=== PATIENT | female | born 1960 | race Caucasian/White ===

== ENCOUNTER 2022-01-10 09:57 | Emergency (ER) | payer MEDICAID, OTHER, SELFPAY ==
--- NOTE | ~2022-01-10 | XR_ITS ---
EXAMINATION: XR CHEST CLINICAL INFORMATION: Cough. COMPARISON: None TECHNIQUE: Frontal view of the chest was obtained. FINDINGS: The lungs are well-expanded and clear. The heart size and pulmonary vascularity is normal. There is moderate spondylosis dorsal spine. No lytic process seen. XR/XR chest 1V IMPRESSION: Unremarkable chest examination.
[2022-01-10 09:59] VITALS: BP 150/85; PULSE 84; RESP 18; TEMP 36.7; O2SAT 97; BMI 40.0
--- NOTE | 2022-01-10 12:25 | ED.GENADULT ---
HPI - General Adult General Chief complaint: General Medical Stated complaint: pain in lungs/coughing Time Seen by Provider: 01/10/22 12:07 Source: patient and family Mode of arrival: ambulatory Limitations: language barrier History of Present Illness HPI narrative: 61-year-old female with history of asthma, hypertension, pneumonia bronchitis in the past who presents to the ER for evaluation of a cough for the last 2 weeks. She also reports pain in her lungs most notably in her middle back bilaterally. She recently came here from [place] 13 days ago and tested positive for COVID when she got here. She has been coughing since. Other symptoms have resolved. She tested negative for COVID at home today. She presents with her daughter who is worried about ongoing lung pain and is worried she may still be positive for COVID. She has had no fever or chills in the last week. No chest pain or difficulty breathing. Cough is worse at night. MD complaint: cough, back pain Onset (ago): week(s) (2) Location: back Radiation: non-radiation Severity: moderate Severity scale (1-10): 5 Quality: aching Pain Consistency: intermittent Relieving factors: immobilization and rest Exacerbating factors: movement and other (coughing) Associated symptoms: denies other symptoms Treatments prior to arrival: none Related Data Previous Rx's Medication Instructions Recorded benzonatate 100 mg capsule 100 mg PO TID PRN cough #30 caps 01/10/22 naproxen 500 mg tablet (Naprosyn) 500 mg PO BID PRN pain #20 tabs 01/10/22 prednisone 20 mg tablet 40 mg PO DAILY #10 tabs 01/10/22 Allergies Allergy/AdvReac Type Severity Reaction Status Date / Time Unable to Assess Allergy Unverified 01/10/22 12:33 Review of Systems Review of Systems: Constitutional: No Fever, No Chills ENT/Mouth: No sore throat, No Rhinorrhea, No Swallowing Difficulty Cardiovascular: No Chest Pain, No SOB, No Orthopnea, No Edema Respiratory: + Cough, No Sputum, No Wheezing, No dyspnea Gastrointestinal: No Nausea, No Vomiting, No Diarrhea, No abdominal Pain Musculoskeletal: No joint pain, +Myalgias Skin: No Skin Lesions, No rash Neuro: No Weakness, No Numbness, No Dizziness, No Headache Heme/Lymph: No Bruising, No Lymphadenopathy PMFSH Social History Social History Advance Directives: No Advance Directives Information Provided: Yes Physical Exam ED Vital Signs: Vital Signs - 24 hr 01/10/22 09:59 Temperature 98.1 F Pulse Rate 84 Respiratory Rate 18 Blood Pressure 150/85 H Pulse Oximetry 97 Oxygen Delivery Method Room Air BMI result Body Mass Index 40.0 Appearance: Alert. Oriented X3. No acute distress. Eyes: Pupils equal, round and reactive to light. ENT: Pharynx normal. Neck: Normal inspection. Neck supple. CVS: Normal heart rate and rhythm. Pulses normal. No chest wall tenderness Respiratory: No respiratory distress. Breath sounds normal. Middle thoracic area bilaterally with mild tenderness throughout. Skin: Skin warm and dry. Normal skin color. Normal skin turgor. No rashes. Extremities: No lower extremity edema. No calf tenderness. No redness or warmth of LE Neuro: Oriented X 3. No motor deficit. No sensory deficit. Steady gait Course Course Course Narrative: 61 yo female with history of asthma, recent COVID diagnosis 13 days ago presents with back pains and ongoing cough. On arrival to the ER she is breathing comfortably and lungs are clear throughout, no distress. She has some tenderness of her middle back most consistent with muscular pain from ongoing cough fits. Her CXR done today is clear, no PNA. Given her recent COVID dx will check DDIMER. She is not tachycardic or hypoxic. Low suspicion for PE. No clinical evidence of DVT on exam. Reevaluation(s) Reevaluation #1: DDIMER negative. Labs otherwise unremarkable. Will treat for bronchitis associated with COVID - antitussive, short course prednisone. Stable for d/c home with her daughter. Return precautions were discussed. Medical Decision Making Lab Data Result diagrams: 01/10/22 12:45 01/10/22 12:45 Labs: Lab Results 01/10/22 01/10/22 01/10/22 Range/Units 12:45 12:45 12:45 WBC 8.8 (4.8-10.8) X10*3/uL RBC 4.84 (4.20-5.50) X10*6/uL Hgb 12.4 (12.0-16.0) g/dl Hct 39.3 (37.0-47.0) % MCV 81.2 (80.0-98.0) fL MCH 25.6 L (27.0-33.0) pg MCHC 31.6 (31.0-35.0) g/dl RDW 13.6 (11.0-16.0) % Plt Count 357 (160-400) X10*3/uL MPV 9.9 (9.4-12.3) fL Immature Gran % (Auto) 0.2 (0.0-0.4) % Neut % (Auto) 41.2 L (45-73) % Lymph % (Auto) 44.7 H (20-40) % [place] % (Auto) 10.5 (2-11) % Eos % (Auto) 2.7 (0-4) % Baso % (Auto) 0.7 (0-2) % Lymph # (Auto) 3.9 (1.2-4.9) X10*3/uL [place] # (Auto) 0.9 (0.1-1.2) X10*3/uL Eos # (Auto) 0.2 (0.0-0.4) X10*3/uL Baso # (Auto) 0.1 (0.0-0.2) X10*3/uL Abs Immat Gran (auto) 0.02 (0.00-0.03) X10*3/uL Absolute Neuts (auto) 3.6 (2.0-8.3) x10*3/uL Absolute Nucleated RBC 0.000 (0.0-0.012) X10*3/uL Nucleated RBC % (auto) 0.0 (0.0-0.2) /100WBC D-Dimer High Sensitivty 170 NG/ML Sodium 140 (135-145) mmol/L Potassium 4.3 (3.3-5.1) mmol/L Chloride 105 (96-108) mmol/L Carbon Dioxide 24 (22-29) mmol/L Anion Gap 15 (12-20) BUN 9 (9-16) mg/dL Creatinine 0.64 (0.5-1.4) mg/dL Estim Creat Clear Calc 93.9 Estimated GFR > 60 Random Glucose 100 (60-115) mg/dL Calcium 9.8 (8.4-10.2) mg/dL Magnesium 2.4 (1.6-2.6) mg/dL Total Bilirubin 0.5 (0.0-1.0) mg/dL Direct Bilirubin < 0.2 (0.0-0.5) mg/dL AST 21 (5-31) U/L ALT 22 (0-31) U/L Alkaline Phosphatase 80 (39-117) U/L Total Protein 8.0 (6.5-8.0) g/dL Albumin 4.5 (3.5-5.0) g/dL Discharge Plan Discharge Clinical Impression: Cough, Acute costochondritis Patient Disposition: Home, Self-Care Instructions: Costochondritis (ED), Acute Cough (ED) Additional Instructions: Your x-ray today was negative, no evidence of pneumonia. Your blood work was reassuring against any evidence of pulmonary embolism also known as a blood clot in the lungs. Your cough and lung pain is most likely an effect from COVID. This should get better with time. Take the prescribed medications as directed. Follow-up with your doctor. If you develop new or worsening symptoms call 911 or come back to the ER for further evaluation. Prescriptions: New benzonatate 100 mg capsule 100 mg PO TID PRN (Reason: cough) Qty: 30 0RF prednisone 20 mg tablet 40 mg PO DAILY Qty: 10 0RF naproxen [Naprosyn] 500 mg tablet 500 mg PO BID PRN (Reason: pain) Qty: 20 0RF Print Language: Bhutanese
[2022-01-10 12:51] LABS: MANUAL DIFF FLAG NO
[2022-01-10 12:57] LABS: Basophils Absolute Auto 0.1 X10*3/uL (0.0-0.2); Basophils Percent Auto 0.7 % (0-2); Eosinophils Absolute Auto 0.2 X10*3/uL (0.0-0.4); Eosinophils Percent Auto 2.7 % (0-4); Hematocrit 39.3 % (37.0-47.0); Hemoglobin 12.4 g/dl (12.0-16.0); Imm Gran Abs Auto 0.02 X10*3/uL (0.00-0.03); Imm Gran Pct Auto 0.2 % (0.0-0.4); Lymphocytes Absolute Auto 3.9 X10*3/uL (1.2-4.9); Lymphocytes Percent Auto 44.7 % (20-40); Mean Corpuscular HGB Conc 31.6 g/dl (31.0-35.0); Mean Corpuscular Hemoglobin 25.6 pg (27.0-33.0); Mean Corpuscular Volume 81.2 fL (80.0-98.0); Mean Platelet Volume 9.9 fL (9.4-12.3); Monocytes Absolute Auto 0.9 X10*3/uL (0.1-1.2); Monocytes Percent Auto 10.5 % (2-11); Neutrophils Absolute Auto 3.6 x10*3/uL (2.0-8.3); Neutrophils Percent Auto 41.2 % (45-73); Platelet Count 357 X10*3/uL (160-400); Red Blood Count 4.84 X10*6/uL (4.20-5.50); Red Cell Distribution Width 13.6 % (11.0-16.0); White Blood Count 8.8 X10*3/uL (4.8-10.8)
[2022-01-10] MEDS: Benzonatate 100 MG CAPSULE 200 MG PO (12:58)
[2022-01-10] MEDS: lisinopriL 10 MG TABLET PO (12:58)
[2022-01-10 13:04] LABS: D Dimer High Sensitivity 170 NG/ML
[2022-01-10 13:10] LABS: Alanine Aminotransferase 22 U/L (0-31); Albumin Level 4.5 g/dL (3.5-5.0); Alkaline Phosphatase 80 U/L (39-117); Anion Gap 15 (12-20); Aspartate Amino Transferase 21 U/L (5-31); Bilirubin Direct < 0.2 mg/dL (0.0-0.5); Bilirubin Total 0.5 mg/dL (0.0-1.0); Blood Urea Nitrogen 9 mg/dL (9-16); Calcium 9.8 mg/dL (8.4-10.2); Carbon Dioxide 24 mmol/L (22-29); Chloride 105 mmol/L (96-108); Creatinine Clr Calc Pharmacy 93.9; Estimated Glomerular Filt Rate > 60; Glucose Random 100 mg/dL (60-115); Magnesium 2.4 mg/dL (1.6-2.6); Potassium 4.3 mmol/L (3.3-5.1); Sodium 140 mmol/L (135-145)
== END 2022-01-10 13:44 | disposition home or self-care (01) ==
PROVIDERS: Physician Assistant; Emergency Provider Emergency Medicine
DX: R05.9 Cough, unspecified (principal); M94.0 Chondrocostal junction syndrome [Tietze]; Z79.899 Other long term (current) drug therapy
CPT/HCPCS: 36415; 71045; 80048; 80076; 83735; 85025; 85379; 99282; 99283

== ENCOUNTER 2022-06-01 10:36 | Emergency (ER) | payer MEDICAID, OTHER, SELFPAY ==
--- NOTE | ~2022-06-01 | XR_ITS ---
EXAMINATION: 1. RADIOGRAPHS RIGHT RIBS 2. RADIOGRAPHS LUMBAR SPINE 3. RADIOGRAPHS RIGHT FIRST TOE CLINICAL INFORMATION: Pain COMPARISON: None TECHNIQUE: 3 views of the right RIBS, 3 views of the lumbar spine and 3 views of the right first toe were obtained. FINDINGS: Right RIBS: No right-sided rib fracture. Cardiac silhouette is normal in size. The lungs are well aerated. There is no lobar consolidation. Blunting of the left costophrenic angle likely represents scarring, however, tiny amount of pleural fluid is also within the differential. There is no pneumothorax. Lumbar spine: 5 nonrib-bearing lumbar vertebral bodies are visualized. Lumbar vertebral body heights are maintained. Moderate narrowing of the L5/S1 disc space height. There are degenerative changes of the posterior elements of the lower lumbar spine. Sacroiliac joints are symmetric. Small left pelvic calcification is likely vascular in nature. Right first toe: No fracture or dislocation. There are mild degenerative changes of the first MTP joint. The first IP joint is unremarkable. No focal soft tissue swelling of the first toe. No radiopaque foreign body. XR/XR lumbar spine 2-3V IMPRESSION: 1. No right-sided rib fracture. 2. Mild degenerative changes of the lower lumbar spine without compression deformity. 3. Mild degenerative changes of the right first toe without fracture.
--- NOTE | ~2022-06-01 | XR_ITS ---
EXAMINATION: 1. RADIOGRAPHS RIGHT RIBS 2. RADIOGRAPHS LUMBAR SPINE 3. RADIOGRAPHS RIGHT FIRST TOE CLINICAL INFORMATION: Pain COMPARISON: None TECHNIQUE: 3 views of the right RIBS, 3 views of the lumbar spine and 3 views of the right first toe were obtained. FINDINGS: Right RIBS: No right-sided rib fracture. Cardiac silhouette is normal in size. The lungs are well aerated. There is no lobar consolidation. Blunting of the left costophrenic angle likely represents scarring, however, tiny amount of pleural fluid is also within the differential. There is no pneumothorax. Lumbar spine: 5 nonrib-bearing lumbar vertebral bodies are visualized. Lumbar vertebral body heights are maintained. Moderate narrowing of the L5/S1 disc space height. There are degenerative changes of the posterior elements of the lower lumbar spine. Sacroiliac joints are symmetric. Small left pelvic calcification is likely vascular in nature. Right first toe: No fracture or dislocation. There are mild degenerative changes of the first MTP joint. The first IP joint is unremarkable. No focal soft tissue swelling of the first toe. No radiopaque foreign body. XR/XR ribs RT min 3V w CXR1V IMPRESSION: 1. No right-sided rib fracture. 2. Mild degenerative changes of the lower lumbar spine without compression deformity. 3. Mild degenerative changes of the right first toe without fracture.
--- NOTE | ~2022-06-01 | XR_ITS ---
EXAMINATION: 1. RADIOGRAPHS RIGHT RIBS 2. RADIOGRAPHS LUMBAR SPINE 3. RADIOGRAPHS RIGHT FIRST TOE CLINICAL INFORMATION: Pain COMPARISON: None TECHNIQUE: 3 views of the right RIBS, 3 views of the lumbar spine and 3 views of the right first toe were obtained. FINDINGS: Right RIBS: No right-sided rib fracture. Cardiac silhouette is normal in size. The lungs are well aerated. There is no lobar consolidation. Blunting of the left costophrenic angle likely represents scarring, however, tiny amount of pleural fluid is also within the differential. There is no pneumothorax. Lumbar spine: 5 nonrib-bearing lumbar vertebral bodies are visualized. Lumbar vertebral body heights are maintained. Moderate narrowing of the L5/S1 disc space height. There are degenerative changes of the posterior elements of the lower lumbar spine. Sacroiliac joints are symmetric. Small left pelvic calcification is likely vascular in nature. Right first toe: No fracture or dislocation. There are mild degenerative changes of the first MTP joint. The first IP joint is unremarkable. No focal soft tissue swelling of the first toe. No radiopaque foreign body. XR/XR toe RT min 2V IMPRESSION: 1. No right-sided rib fracture. 2. Mild degenerative changes of the lower lumbar spine without compression deformity. 3. Mild degenerative changes of the right first toe without fracture.
--- NOTE | ~2022-06-01 | CT_ITS ---
EXAM: Noncontrast CT scan of the head and cervical spine. INDICATION: Fall. Headache. COMPARISON: None TECHNIQUE: Axial slices were obtained from skull base to vertex and displayed. This was followed by helical, multislice, multidetector axial images from the occiput to the upper thorax. Coronal and sagittal reformats of the cervical spine in addition to coronal reformats of the head were obtained at the technologist workstation. DLP: 366 mGy-cm FINDINGS: HEAD: There is no evidence of acute intracranial hemorrhage or territorial infarction. No abnormal mass effect or midline shift is appreciated. Cox-white differentiation is well preserved. No extra-axial fluid collections. The ventricular system and cortical sulci are normal in size. There are subtle areas of low density in the periventricular and subcortical white matter, most consistent with sequelae of microvascular ischemic change. Hyperostosis frontalis. No fracture. There are mild calcifications of the cavernous internal carotid arteries. The visualized paranasal sinuses and mastoid air cells are well aerated. SPINE: The cervical spine is visualized in its entirety. Alignment is within normal limits. Normal C1/C2 articulation. Cervical vertebral body heights are maintained. Cervical disc spaces are relatively well-maintained diffusely. A few tiny osteophytes are scattered throughout the spine. Mild diffuse facet hypertrophy bilaterally. Visualized lung apices are well aerated. CT/CT cervical spine wo IV con IMPRESSION: 1. No acute intracranial pathology. 2. No fractures or dislocations of the cervical spine. This CT examination was performed using dose optimization techniques as appropriate, variously including the following: *Automated exposure control *Adjustment of mA and/or kV according to patient size (this includes techniques or standardized protocols for targeted exams where dose is matched to indication/reason for exam; i.e. extremities or head) *Use of iterative reconstruction technique
[2022-06-01 11:15] VITALS: BP 171/76; PULSE 93; RESP 20; TEMP 36.6; O2SAT 97; BMI 33.3
--- NOTE | 2022-06-01 11:20 | ED.GENADULT ---
HPI - General Adult General Chief complaint: Fall <Shane Castillo - Last Filed: 06/01/22 11:21> Stated complaint: fall swollen finger, pain in R leg <Shane Castillo - Last Filed: 06/01/22 11:21> Time Seen by Provider: 06/01/22 12:48 <Shane Castillo - Last Filed: 06/01/22 11:21> Source: patient, RN notes reviewed and intelligence clerk <CHERISE Lee - Last Filed: 06/01/22 16:15> Mode of arrival: ambulatory <CHERISE Lee Last Filed: 06/01/22 16:15> Limitations: no limitations <CHERISE Lee Last Filed: 06/01/22 16:15> History of Present Illness HPI narrative: This is a [id number]-female, with a past medical history of asthma and hypertension, who presents to the emergency department today with complaints of right great toe pain, right-sided back pain, headache status post mechanical fall which occurred earlier today. Patient reports that she accidentally slipped and fell down 10 wooden steps in her home, and landed on her buttocks. She is unsure if she hit her head as it happened too fast . She states that she did not lose consciousness. She is not on anticoagulants. She has been ambulatory since the fall. She denies any weakness, numbness, tingling, chest pain, shortness of breath, dizziness, blurred vision, nausea, vomiting or diarrhea. <CHERISE Lee - Last Filed: 06/01/22 16:15> MD complaint: Fall <CHERISE Lee Last Filed: 06/01/22 16:15> Onset (ago): hour(s) <CHERISE Lee Last Filed: 06/01/22 16:15> Location: head and back <CHERISE Lee Last Filed: 06/01/22 16:15> Radiation: back <CHERISE Lee Last Filed: 06/01/22 16:15> Severity: moderate <CHERISE Lee Last Filed: 06/01/22 16:15> Quality: aching <CHERISE Lee Last Filed: 06/01/22 16:15> Pain Consistency: constant <CHERISE Lee - Last Filed: 06/01/22 16:15> Relieving factors: immobilization <CHERISE Lee Last Filed: 06/01/22 16:15> Exacerbating factors: movement <CHERISE Lee Last Filed: 06/01/22 16:15> Associated symptoms: denies other symptoms <CHERISE Lee - Last Filed: 06/01/22 16:15> Related Data Home medications: Previous Rx's Medication Instructions Recorded benzonatate 100 mg capsule 100 mg PO TID PRN cough #30 caps 01/10/22 lisinopril 10 mg tablet 10 mg PO DAILY #30 tabs 01/10/22 naproxen 500 mg tablet (Naprosyn) 500 mg PO BID PRN pain #20 tabs 01/10/22 prednisone 20 mg tablet 40 mg PO DAILY #10 tabs 01/10/22 <Shane Castillo - Last Filed: 06/01/22 11:21> Allergies/adverse reactions: Allergies Allergy/AdvReac Type Severity Reaction Status Date / Time No Known Allergies Allergy Verified 06/01/22 11:20 <Shane Castillo - Last Filed: 06/01/22 11:21> Review of Systems Review of Systems: Yes all other systems are reviewed and are negative <CHERISE Lee - Last Filed: 06/01/22 16:15> [facility] Social History Social History: Social History Advance Directives: No Advance Directives Information Provided: Yes <Shane Castillo - Last Filed: 06/01/22 11:21> Physical Exam ED Vital Signs: Vital Signs - 24 hr 06/01/22 11:15 06/01/22 15:22 Temperature 97.9 F Pulse Rate 93 83 Respiratory Rate 20 16 Blood Pressure 171/76 H 152/85 H Pulse Oximetry 97 95 Oxygen Delivery Method Room Air Room Air BMI result Body Mass Index 33.3 <Shane Castillo - Last Filed: 06/01/22 11:21> Vital Signs - 24 hr 06/01/22 11:15 06/01/22 15:22 Temperature 97.9 F Pulse Rate 93 83 Respiratory Rate 20 16 Blood Pressure 171/76 H 152/85 H Pulse Oximetry 97 95 Oxygen Delivery Method Room Air Room Air BMI result Body Mass Index 33.3 <CHERISE Lee - Last Filed: 06/01/22 16:15> Appearance: Alert. Oriented X3. No acute distress. HEENT: Head is normocephalic, atraumatic, normal inspection to the head without any open wounds, edema, or abrasions. EOMI, PERRL. CVS: Normal heart rate and rhythm. Pulses normal. Respiratory: No respiratory distress. Skin: Skin warm and dry. Normal skin color. Normal skin turgor. No rashes. Extremities: Normal inspection to the entire back without any gross deformities, swelling, overlying ecchymosis, lacerations or abrasions. Right ribs are nontender to palpation. No cervical, thoracic or lumbar midline spine tenderness. Mild tenderness to palpation over the right SI joint. Neuro: Oriented X 3. No motor deficit. No sensory deficit. <CHERISE Lee - Last Filed: 06/01/22 16:15> Course Course Course Narrative: RME- 61-year-old primarily [place]er-speaking female presents for evaluation after a fall. Patient reports that she slipped down the stairs and injured her right big toe, right flank and lower back. She does not remember hitting her head. On exam her head is normocephalic and atraumatic. She is not on blood thinners and she denies any headache. Will defer CT imaging of the head but will obtain radiographs of the right great toe, right ribs and lumbar spine <Shane Castillo - Last Filed: 06/01/22 11:21> Reevaluation(s) Reevaluation #1: Patient was re-evaluated. She is reporting a headache and reports that she is unsure if she had hit her head, due to her age and headache, will obtain head and cervical spine CT. Patient remains stable and comfortable, exam remains nonfocal. <CHERISE Lee - Last Filed: 06/01/22 16:15> Time: 14:54 <CHERISE Lee - Last Filed: 06/01/22 16:15> Reevaluation #2: CT head and CT cervical spine unremarkable. Patient is stable to be discharged home. <CHERISE Lee - Last Filed: 06/01/22 16:15> Time: 16:05 <CHERISE Lee - Last Filed: 06/01/22 16:15> Medications Administered Discontinued Medications Generic Name Dose Route Start Last Admin Trade Name Freq PRN Reason Stop Dose Admin Atenolol 25 mg 06/01/22 15:08 06/01/22 15:16 Atenolol 25 Mg Tablet PO 06/01/22 15:09 25 mg ONCE ONE Administration Protocol <Shane Castilol - Last Filed: 06/01/22 11:21> Medications Administered Discontinued Medications Generic Name Dose Route Start Last Admin Trade Name Freq PRN Reason Stop Dose Admin Atenolol 25 mg 06/01/22 15:08 06/01/22 15:16 Atenolol 25 Mg Tablet PO 06/01/22 15:09 25 mg ONCE ONE Administration Protocol <CHERISE Lee - Last Filed: 06/01/22 16:15> Medical Decision Making Medical Decision Making MDM Narrative: 42-[id number]-edx-female presenting today with complaints or right great toe pain, right sided back pain and headache status post mechanical fall which occurred today. No acute fractures seen on foot, lumbar spine and rib x-ray series. Unremarkable head and cervical spine CT. <CHERISE Lee - Last Filed: 06/01/22 16:15> Differential Diagnosis Differential Diagnoses: The differential diagnosis associated with the presentation includes <CHERISE Lee - Last Filed: 06/01/22 16:15> right great toe fracture, sprain, strain, contusion, rib fracture, rib contusion, closed head injury, concussion, ICH <CHERISE Lee - Last Filed: 06/01/22 16:15> Independent Interpretation I performed an independent interpretation of an: Plain X-Ray and CT Scan <CHERISE Lee - Last Filed: 06/01/22 16:15> Interpretation: Review of right toe, ribs, and lumbar spine reviewed by me with no acute findings of fracture. CT head/cervical spine review with no acute findings or evidence of ICH <CHERISE Lee - Last Filed: 06/01/22 16:15> Radiology Impression Discussion of test interpretation with radiology: I have reviewed the radiologist's reading. <CHERISE Lee - Last Filed: 06/01/22 16:15> Radiologist Impression: TECHNIQUE: 3 views of the right RIBS, 3 views of the lumbar spine and 3 views of the right first toe were obtained.? FINDINGS: Right RIBS: No right-sided rib fracture. Cardiac silhouette is normal in size. The lungs are well aerated. There is no lobar consolidation. Blunting of the left costophrenic angle likely represents scarring, however, tiny amount of pleural fluid is also within the differential. There is no pneumothorax. Lumbar spine: 5 nonrib-bearing lumbar vertebral bodies are visualized. Lumbar vertebral body heights are maintained. Moderate narrowing of the L5/S1 disc space height. There are degenerative changes of the posterior elements of the lower lumbar spine. Sacroiliac joints are symmetric. Small left pelvic calcification is likely vascular in nature. Right first toe: No fracture or dislocation. There are mild degenerative changes of the first MTP joint. The first IP joint is unremarkable. No focal soft tissue swelling of the first toe. No radiopaque foreign body. XR/XR toe RT min 2V IMPRESSION: 1.? No right-sided rib fracture. 2.? Mild degenerative changes of the lower lumbar spine without compression deformity. 3.? Mild degenerative changes of the right first toe without fracture. HEAD: There is no evidence of acute intracranial hemorrhage or territorial infarction.? No abnormal mass effect or midline shift is appreciated. Cox-white differentiation is well preserved.? No extra-axial fluid collections. The ventricular system and cortical sulci are normal in size. There are subtle areas of low density in the periventricular and subcortical white matter, most consistent with sequelae of microvascular ischemic change.? Hyperostosis frontalis. No fracture. There are mild calcifications of the cavernous internal carotid arteries.? The visualized paranasal sinuses and mastoid air cells are well aerated. SPINE: The cervical spine is visualized in its entirety. Alignment is within normal limits. Normal C1/C2 articulation. Cervical vertebral body heights are maintained. Cervical disc spaces are relatively well-maintained diffusely. A few tiny osteophytes are scattered throughout the spine. Mild diffuse facet hypertrophy bilaterally. Visualized lung apices are well aerated. CT/CT head/brain wo IV con IMPRESSION: 1. No acute intracranial pathology. 2. No fractures or dislocations of the cervical spine. ? <CHERISE Lee - Last Filed: 06/01/22 16:15> Prescription Management I considered prescription management with: Pain Medication <CHEIRSE Lee - Last Filed: 06/01/22 16:15> Chronic Conditions Patient?s care impacted by: Diabetes <CHERISE Lee - Last Filed: 06/01/22 16:15> Discharge Plan Discharge Clinical Impression: Contusion of great toe of right foot, Closed head injury, Lumbar contusion <Shane Castillo - Last Filed: 06/01/22 11:21> Patient Disposition: Home, Self-Care <Shane Castillo - Last Filed: 06/01/22 11:21> Instructions: Acute Low Back Pain (ED), Contusion in Adults (ED) <Shane Castillo - Last Filed: 06/01/22 11:21> Additional Instructions: Your Toe X-ray, Rib X-ray, and Lumbar Spine x-ray showed no fractures. Your Head CT and neck CT were normal today. Please rest and apply ice/heat for pain relief. You may take ibuprofen/tylenol as needed for symptomatic relief. Follow up with your primary care physician regarding this visit. If you develop new or worsening symptoms call 911 or come back to the ER for further evaluation. La radiograf?a del dedo del pie, la radiograf?a de la edward y la radiograf?a de la columna lumbar no mostraron fracturas. Owens tomograf?a computarizada de la kushal y la tomograf?a computarizada del estefania fueron normales hoy. Descanse y aplique hielo/calor para aliviar el dolor. Puede bull ibuprofeno/tylenol seg?n sea necesario para el alivio sintom?bradley. Frederick un seguimiento con owens m?dico de atenci?n primaria con respecto a esta visita. Si desarrolla s?ntomas nuevos o que empeoran, llame al 911 o regrese a la miller de emergencias para yael evaluaci?n adicional. <Shane Castillo - Last Filed: 06/01/22 11:21> Prescriptions: No Action benzonatate 100 mg capsule 100 mg PO TID PRN (Reason: cough) Qty: 30 0RF prednisone 20 mg tablet 40 mg PO DAILY Qty: 10 0RF naproxen [Naprosyn] 500 mg tablet 500 mg PO BID PRN (Reason: pain) Qty: 20 0RF lisinopril 10 mg tablet 10 mg PO DAILY Qty: 30 0RF <Shane Castillo - Last Filed: 06/01/22 11:21>
[2022-06-01] MEDS: atenoloL 25 MG TABLET PO (15:16)
[2022-06-01 15:22] VITALS: BP 152/85; PULSE 83; RESP 16; O2SAT 95
== END 2022-06-01 16:32 | disposition home or self-care (01) ==
PROVIDERS: Emergency Provider Student in an Organized Health Care Education/Training Program
DX: S09.90XA Unspecified injury of head, initial encounter (principal); S90.111A Contusion of right great toe without damage to nail, initial encounter; S30.0XXA Contusion of lower back and pelvis, initial encounter; M79.671 Pain in right foot; R51.9 Headache, unspecified; M54.2 Cervicalgia; R07.81 Pleurodynia; W10.9XXA Fall (on) (from) unspecified stairs and steps, initial encounter; Y93.9 Activity, unspecified; Y92.9 Unspecified place or not applicable; Y99.9 Unspecified external cause status; Z79.899 Other long term (current) drug therapy
CPT/HCPCS: 70450; 71101; 72100; 72125; 73660; 99283; 99284

== ENCOUNTER 2022-07-07 05:45 | Emergency (ER) | payer MEDICAID, OTHER, SELFPAY ==
[2022-07-07 05:55] VITALS: BP 142/76; BP 160/90; PULSE 72; RESP 14; TEMP 36.8; O2SAT 96; BMI 33.2
--- NOTE | 2022-07-07 07:07 | ED.EPISTAXIS ---
History of Present Illness General Chief Complaint: Epistaxis Stated Complaint: Nosebleed Time Seen by Provider: 07/07/22 07:06 Source: patient Mode of arrival: EMS Limitations: no limitations History of Present Illness HPI Narrative: Patient with history of nasal allergies , feel very congested started having nasal bleed while she was asleep from both sites which has stopped by the time she came to the ER. Patient does not take any blood thinner and no aspirin vitals are stable patient had labs done within last 6 months were normal no bruising no abdominal pain no melena no dizziness no skin rash patient complained of dysuria and strong order for last few days no fever no chills no flank Related Data Previous Rx's Medication Instructions Recorded benzonatate 100 mg capsule 100 mg PO TID PRN cough #30 caps 01/10/22 lisinopril 10 mg tablet 10 mg PO DAILY #30 tabs 01/10/22 naproxen 500 mg tablet (Naprosyn) 500 mg PO BID PRN pain #20 tabs 01/10/22 prednisone 20 mg tablet 40 mg PO DAILY #10 tabs 01/10/22 fluticasone propionate 50 2 spray intranasal DAILY #16 grams 07/07/22 mcg/actuation nasal spray,suspension (Flonase Allergy Relief) Allergies Allergy/AdvReac Type Severity Reaction Status Date / Time No Known Allergies Allergy Verified 06/01/22 11:20 Review of Systems Review of Systems: Yes all other systems are reviewed and are negative [facility] Social History Social History Alcohol intake: never Smoked in Last 30 Days: No 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 Oriented X3. No acute distress. Eyes: No pallor or icterus HEENT: Pharynx normal. Oral Mucosa moist nasal turbinates inflamed no active bleeding no blood clots no polyp seen Neck: Normal inspection. Neck supple. CVS: Normal heart rate and rhythm. Pulses normal. Respiratory: No respiratory distress. Equal air entry bilateral, no wheezing/rales/rhonchi Abdomen: Soft and nontender. Bowel sounds are present, no mass palpable, Skin: Skin warm and dry. Normal skin color. Normal skin turgor. Extremities: No lower extremity edema. No calf tenderness Neuro: Oriented X 3. Medical Decision Making Medical Decision Making [facility] Narrative: Patient with allergic rhinitis with minor nasal bleed not on anticoagulants labs are stable blood pressure stable previous labs are normal Lab Data [facility] Lab Attestation statement: I reviewed the patient's lab results. Labs: Lab Results 07/07/22 Range/Units 08:00 Urine Color Yellow Urine Appearance Cloudy Urine pH 7.0 (5.0-9.0) Ur Specific Greer 1.015 (1.005-1.025) Urine Protein Negative (Neg-Trace) mg/dL Urine Glucose (UA) Negative (Negative) mg/dL Urine Ketones Negative (Negative) mg/dL Urine Blood Trace H (Negative) Urine Nitrite Positive H (Negative) Ur Leukocyte Esterase Large (3+) H (Negative) Urine RBC 0-2 (0-2) /HPF Urine WBC 21-50 H (0-5) /HPF Ur Squamous Epith Cells 3-5 (0-2) /HPF Urine Bacteria 4+ (None Seen) Hyaline Casts 0-2 (0-2) /LPF Discharge Plan Discharge Clinical Impression: Epistaxis Patient Disposition: Home, Self-Care Instructions: Nosebleed (ED) Additional Instructions: Local care as advised Nasal spray for allergies Follow with PCP Atenci?n local seg?n lo recomendado Aerosol nasal para alergias Seguir con PCP Prescriptions: New fluticasone propionate [Flonase Allergy Relief] 50 mcg/actuation spray,suspension 2 spray intranasal DAILY Qty: 16 0RF Rx Instructions: administer into each nostril No Action benzonatate 100 mg capsule 100 mg PO TID PRN (Reason: cough) Qty: 30 0RF prednisone 20 mg tablet 40 mg PO DAILY Qty: 10 0RF naproxen [Naprosyn] 500 mg tablet 500 mg PO BID PRN (Reason: pain) Qty: 20 0RF lisinopril 10 mg tablet 10 mg PO DAILY Qty: 30 0RF Print Language: [place]an
[2022-07-07 07:11] VITALS: BP 133/68; PULSE 70; O2SAT 97
--- NOTE | 2022-07-07 07:59 | PC.NURSE ---
pt asking to have urine and blood work done d/t my urine smelling bad . provider aware, ua spec ordered.
[2022-07-07 08:08] LABS: Appearance Urine Cloudy; Color Urine Yellow; Glucose Urine UA Negative (Negative); Leukocyte Esterase Urine Large (3+) (Negative); Nitrite Urine Positive (Negative); Specific Gravity - Urine 1.015 (1.005-1.025); UMIC TRIGGER UACC YES; Urine Blood Trace (Negative); Urine Ketones Negative (Negative); Urine Protein Negative (Neg-Trace)
[2022-07-07 08:11] LABS: Bacteria Urine 4+ (None Seen); Hyaline Casts Urine 0-2 /LPF (0-2); RBC Urine 0-2 /HPF (0-2); UACC Culture Trigger YES; WBC Urine 21-50 /HPF (0-5)
== END 2022-07-07 08:35 | disposition home or self-care (01) ==
PROVIDERS: Emergency Provider Internal Medicine
DX: R04.0 Epistaxis (principal); Z79.899 Other long term (current) drug therapy
CPT/HCPCS: 81001; 87086; 99283; 99284

== ENCOUNTER 2022-07-24 07:25 | Emergency (ER) | payer MEDICAID, OTHER, SELFPAY ==
--- NOTE | 2022-07-24 07:35 | ED.URI ---
HPI - URI/Sore Throat General Chief Complaint: Upper Respiratory Symptoms Stated Complaint: sore throat and back pain Time Seen by Provider: 07/24/22 07:30 Source: patient Mode of arrival: ambulatory Limitations: no limitations History of Present Illness HPI Narrative: 61 y/o female presents to the ER for evaluation of sore throat and back pain for the last couple of days. She presents with her 2 children in their 20s who have similar symptoms. She also reports she has a headache, body aches with muscle pain. She has some nasal congestion and post nasal drip at night with a dry cough. No fevers. No chest pain or trouble breathing. She is able to eat and drink normally but has some pain with swallowing. MD elicited complaint: sore throat and other (back pain) Onset (ago): day(s) Consistency: progressively worsening Severity: moderate Description of mucous: clear Able to tolerate fluids by mouth: Yes Exacerbating factors: swallowing Relieving factors: nothing Context: sick contacts Associated symptoms: myalgias, headache, nasal congestion, sore throat and cough Treatments prior to arrival: none Related Data Previous Rx's Medication Instructions Recorded benzonatate 100 mg capsule 100 mg PO TID PRN cough #30 caps 01/10/22 lisinopril 10 mg tablet 10 mg PO DAILY #30 tabs 01/10/22 naproxen 500 mg tablet (Naprosyn) 500 mg PO BID PRN pain #20 tabs 01/10/22 prednisone 20 mg tablet 40 mg PO DAILY #10 tabs 01/10/22 cefuroxime axetil 250 mg tablet 250 mg PO BID 7 days #14 tabs 07/07/22 fluticasone propionate 50 2 spray intranasal DAILY #16 grams 07/07/22 mcg/actuation nasal spray,suspension (Flonase Allergy Relief) Allergies Allergy/AdvReac Type Severity Reaction Status Date / Time No Known Allergies Allergy Verified 06/01/22 11:20 Review of Systems Review of Systems: Yes all other systems are reviewed and are negative [facility] Social History Social History Alcohol intake: never 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 Oriented X3. No acute distress. Head: normocephalic, atraumatic. Eyes: Pupils equal, round and reactive to light. ENT: Pharynx normal. No tonsillar swelling or exudate but the entire posterior oropharynx is erythematous Neck: Normal inspection. Neck supple. CVS: Normal heart rate and rhythm. Pulses normal. Respiratory: No respiratory distress. Breath sounds normal. Abdomen: Soft and nontender. +BS x4 Skin: Skin warm and dry. Normal skin color. Normal skin turgor. No rashes. Extremities: No lower extremity edema. No joint swelling. Neuro/psych: Oriented X 3. Grossly normal. CN II-XII intact. Normal speech and cognition. Medical Decision Making Medical Decision Making [facility] Narrative: 61 yo female presenting with sore throat, body aches, headache, nasal congestion and dry cough. VSS on arrival. Patient is negative for strep throat and COVID. Her had similar symptoms last week. Clinical presentation most consistent with viral infection, no need for abx at this time. Discussed results, dx and management as well as return precautions. Stable for d/c home. Differential Diagnosis Differential Diagnoses: The differential diagnosis associated with the presentation includes strep, covid, flu, rsv, other viral syndrome, bronchitis, pneumonia, no evidence of peritonsillar abcsess or retropharyngeal abscess Lab Data [facility] Lab Attestation statement: I reviewed the patient's lab results. Labs: Lab Results 07/24/22 07/24/22 Range/Units 07:52 07:52 COVID-19 (OLGA) Negative (Negative) COVID-19 Clin Com See Note S. pyogenes GrpA MAHSA Negative (Negative) Independent Historian Clinical information obtained from an independent historian. History obtained from or confirmed by: Spouse External Record Review External record reviewed: Outpatient record and Prior outpatient labs Prescription Management I considered prescription management with: Antibiotic Critical Care Time Critical Care Time Critical Care Time: No Discharge Plan Discharge Clinical Impression: Viral infection Patient Disposition: Home, Self-Care Instructions: Viral Syndrome (ED) Additional Instructions: You tested negative for COVID-19 and Strep throat. Your symptoms are most likely due to another viral illness. Treatment is rest and supportive care. Drink plenty of fluids. Take over the counter cold and flu medications as needed for your symptoms. Use warm salt water gargles 3 times per day to help your sore throat. Recommend over the counter Chloraseptic spray and Cepacol lozenges for sore throat. Follow up with your doctor as needed. If you develop new or worsening symptoms call 911 or come back to the ER for further evaluation. Prescriptions: No Action benzonatate 100 mg capsule 100 mg PO TID PRN (Reason: cough) Qty: 30 0RF prednisone 20 mg tablet 40 mg PO DAILY Qty: 10 0RF naproxen [Naprosyn] 500 mg tablet 500 mg PO BID PRN (Reason: pain) Qty: 20 0RF lisinopril 10 mg tablet 10 mg PO DAILY Qty: 30 0RF fluticasone propionate [Flonase Allergy Relief] 50 mcg/actuation spray,suspension 2 spray intranasal DAILY Qty: 16 0RF Rx Instructions: administer into each nostril cefuroxime axetil 250 mg tablet 250 mg PO BID 7 Days Qty: 14 0RF
[2022-07-24 07:51] VITALS: BP 145/87; PULSE 95; RESP 16; TEMP 36.4; O2SAT 96; BMI 29.2
[2022-07-24 08:37] LABS: IDNOW Serial# 08D9AD1C; Strep A Nucleic Acid Negative (Negative)
[2022-07-24 08:40] LABS: COVID-19 Test Negative (Negative); IDNOW Serial# 55D5AD1C
== END 2022-07-24 09:09 | disposition home or self-care (01) ==
PROVIDERS: Physician Assistant; Emergency Provider Emergency Medicine
DX: B34.9 Viral infection, unspecified (principal); J02.9 Acute pharyngitis, unspecified; Z20.822 Contact with and (suspected) exposure to COVID-19; Z79.899 Other long term (current) drug therapy
CPT/HCPCS: 87635; 87651; 99282; 99283

== ENCOUNTER 2022-07-27 06:21 | Emergency (ER) | payer MEDICAID, OTHER, SELFPAY ==
--- NOTE | ~2022-07-27 | XR_ITS ---
EXAMINATION: XR CHEST CLINICAL INFORMATION: Cough COMPARISON: January 10, 2022 and June 01, 2022 TECHNIQUE: 2 views of the chest were obtained. FINDINGS: There is no evidence of acute parenchymal disease, pneumothorax, or pleural effusion. Heart normal size. No evidence of pulmonary edema. 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 There is calcification of the anterior longitudinal ligament within the mid thoracic spine. XR/XR chest 2V IMPRESSION: No acute disease.
[2022-07-27 07:10] VITALS: BP 142/84; PULSE 118; RESP 18; TEMP 37.2; O2SAT 96; BMI 34.8
[2022-07-27 07:47] VITALS: BP 135/92; PULSE 96; RESP 20; TEMP 36.8; O2SAT 96
[2022-07-27 08:10] LABS: COVID-19 Test Negative (Negative); IDNOW Serial# 55D5AD1C
[2022-07-27 08:13] LABS: IDNOW Serial# 9DD0AD1C
[2022-07-27 08:14] LABS: Influenza A Negative (Negative); Influenza B2 Negative (Negative)
--- NOTE | 2022-07-27 08:18 | ED.GENADULT ---
HPI - General Adult General Chief complaint: General Medical Stated complaint: flu like symptoms Time Seen by Provider: 07/27/22 07:34 Source: patient and senior account executive Mode of arrival: ambulatory Limitations: language barrier (Commercial Loan Officer used) History of Present Illness HPI narrative: This is a 61-year-old Angolan-speaking female, with past medical history of arthritis and gastritis, who presents the emergency department today with complaints of productive cough with yellow-clear phlegm, ?a itchy throat?, headache, body aches, hoarse voice, and shortness of breath x 1 week. Patient was seen here on 07/24/2022 for these symptoms, and had a negative strep/covid test, dx with viral syndrome and was given conservative treatment for her symptoms, but states that her symptoms are not getting better. Patient reports that he has been taking tylenol for her symptoms without any relief. She denies any chest pain, palpitations, fevers, chills, nausea, vomiting, diarrhea or constipation. Her is currently in the ER being seen for similar symptoms. No other complaints or concerns at this time. MD complaint: Sore throat, cough Onset (ago): week(s) Severity: moderate Relieving factors: medication Exacerbating factors: none Associated symptoms: cough, headaches, malaise and shortness of breath Treatments prior to arrival: none Related Data Previous Rx's Medication Instructions Recorded benzonatate 100 mg capsule 100 mg PO TID PRN cough #30 caps 01/10/22 lisinopril 10 mg tablet 10 mg PO DAILY #30 tabs 01/10/22 naproxen 500 mg tablet (Naprosyn) 500 mg PO BID PRN pain #20 tabs 01/10/22 prednisone 20 mg tablet 40 mg PO DAILY #10 tabs 01/10/22 cefuroxime axetil 250 mg tablet 250 mg PO BID 7 days #14 tabs 07/07/22 fluticasone propionate 50 2 spray intranasal DAILY #16 grams 07/07/22 mcg/actuation nasal spray,suspension (Flonase Allergy Relief) benzonatate 100 mg capsule 100 mg PO Q6H PRN cough #20 caps 07/27/22 hydrocodone-homatropine 5 mg-1.5 5 ml PO Q4-6H PRN cough #100 mL 07/27/22 mg/5 mL (5 mL) oral syrup (Hycodan) Allergies Allergy/AdvReac Type Severity Reaction Status Date / Time No Known Allergies Allergy Verified 06/01/22 11:20 Review of Systems Review of Systems: Constitutional: No Weight loss, No Fever, No Chills, No Night Sweats, No Fatigue, No Malaise ENT/Mouth: No Hearing loss, No Ear Pain, +Nasal Congestion, No Sinus Pain, No Hoarseness, +sore throat, No Rhinorrhea, No Swallowing Difficulty Eyes: No Eye Pain, No Swelling, No Redness, No Foreign Body, No Discharge, No Vision Changes Cardiovascular: No Chest Pain, +SOB, No Dyspnea on Exertion, No Orthopnea, No Edema, No Palpitations Respiratory: + Cough, +Sputum, No Wheezing, No Smoke Exposure, + Dyspnea Gastrointestinal: No Nausea, No Vomiting, No Diarrhea, No Constipation, No Abdominal pain, No Hematochezia, No Melena Genitourinary: No irregular bleeding, No Dysuria, No Urinary Frequency, No Hematuria, No Urinary Incontinence/retention, No Urgency, No Flank Pain, No Urinary Flow Changes, No Hesitancy Musculoskeletal: No joint pain,+Myalgias, No Joint Swelling Skin: No Skin Lesions, No rash Neuro: No Weakness, No Numbness, No Paresthesias, No Loss of Consciousness, No Dizziness, No Headache Psych: No Anxiety/Panic, No Depression, No SI/HI/AH/VH, No Social Issues, Heme/Lymph: No Bruising, No Bleeding,No Lymphadenopathy Endocrine: No Polyuria, No Polydipsia, No Temperature Intolerance Yes all other systems are reviewed and are negative Constitutional: Constitutional: Reports as per [facility] Past Medical History Attestation statement: The following information was validated with the patient. Social History Social History Alcohol intake: never Use of substances other than those prescribed or required for medical reasons: No Substance Use Type: Club/Electronic Tech Drugs Advance Directives: No Physical Exam ED Vital Signs: Vital Signs - 24 hr 07/27/22 07:10 07/27/22 07:47 Temperature 99.0 F 98.3 F Pulse Rate 118 H 96 Respiratory Rate 18 20 Blood Pressure 142/84 H 135/92 H Pulse Oximetry 96 96 Oxygen Delivery Method Room Air Room Air BMI result Body Mass Index 34.8 Const General: cooperative, comfortable and no acute distress Orientation/consciousness: patient oriented x3 Limitations: no limitations HENMT Other: Posterior oral pharynx is mildly erythematous, no tonsillar hypertrophy or exudates. Uvula is midline. Moist mucus membranes Head: Yes normal to inspection, Yes normocephalic and Yes atraumatic Ears: hearing grossly normal bilaterally, TM's normal bilaterally and other (scant cerumen noted to BL auditory canals) General nose exam: Normal external nose present Face and sinus: Yes normal facial exam and Yes sinuses nontender Mouth: Normal oral and palatal mucosa present, oropharynx normal and moist mucous membranes Eyes General: appearance normal, both eyes and all related structures Eyelids: Yes eyelids normal Conjunctivae: conjunctivae normal Sclerae: sclerae normal Pupils: Equal, round and reactive pupils present EOM: EOMs intact bilaterally Neck Neck: Yes normal visual inspection, Yes full ROM and Yes no lymphadenopathy Lymphatic: no lymphadenopathy noted Chest Chest palpation & inspection: normal inspection of the chest Resp Effort & Inspection: normal respiratory effort and able to speak in complete sentences Auscultation: clear to auscultation bilaterally, no crackles, no rales, no rhonchi and no wheezes Cardio Rate: regular rate Rhythm: regular rhythm Heart sounds: S1 normal heart sound present, S2 normal heart sound present, no gallops, no murmurs and no rubs GI Inspection: Yes normal to inspection Palpation (GI): Soft to palpation, nontender, no guarding and not rigid Skin General skin exam: no rashes or lesions noted Trauma: no lacerations or abrasions Wounds: no wounds Neuro General: patient oriented x3, moves all extremities, no focal motor deficits and CN's II-XI intact bilaterally Cranial nerves: Yes Equal, round and reactive pupils present Extrem General: Yes normal to inspection Right upper extremity: normal to inspection Left upper extremity: normal to inspection Right lower extremity: normal to inspection Left lower extremity: normal to inspection Course Reevaluation(s) Reevaluation #1: Viral swabs, strep and chest x-ray unremarkable. Discussed results with patient, and senior account executive at bedside. Explained at length that patient has a virus and that pt does not need antibiotics at this time. Discussed importance of treating symptoms to make sxs feel better, also urged to continue to stay well hydrated and get plenty of rest. Pt reporting cough keeping her awake at night, will give hycodan for at night severe cough symptoms, laureen, already has flonase. Given precautions of when to return, patient understands and agrees with plan. Grateful for treatment, no questions. Patient is stable for discharge. Time: 10:28 Medical Decision Making Medical Decision Making [facility] Narrative: 61-year-old female, with a past medical history of gastritis and arthritis, presenting for evaluation of productive cough, headaches, body aches x1 week. On examination, patient is mildly hypertensive at 135/92. Patient is afebrile and oxygen saturation 96% on room air. On examination, patient has a mildly erythematous oropharynx, no tonsilar hypertrophy, or tonsillar exudate, uvula is midline. Patient tolerating secretions well without any drooling or dysphonia. Lungs clear to auscultation bilaterally. Given productive cough with yellow/green sputum will obtain chest x-ray. Viral swabs and strep swab collected. Differential Diagnosis Differential Diagnoses: The differential diagnosis associated with the presentation includes Pneumonia, URI, sinusitis, viral sore strep pharyngitis, tonsillitis, peritonsillar abscess Admission/Observation Consideration of admission/observation: Escalation of care including admission/observation considered Lab Data [facility] Lab Attestation statement: I reviewed the patient's lab results. Labs: Lab Results 07/27/22 07/27/22 07/27/22 Range/Units 07:36 07:36 08:10 COVID-19 (OLGA) Negative (Negative) COVID-19 Clin Com See Note Influenza Type A ([facility]) Negative (Negative) Influenza Type B ([facility]SA) Negative (Negative) Influenza A & B Note See Note S. pyogenes GrpA [facility]SA Negative (Negative) Independent Interpretation I performed an independent interpretation of an: Plain X-Ray Interpretation: No consolidations seen. Radiology Impression Discussion of test interpretation with radiology: I have reviewed the radiologist's reading. Radiologist Impression: EXAMINATION: XR CHEST CLINICAL INFORMATION: Cough COMPARISON: January 10, 2022 and June 01, 2022 TECHNIQUE: 2 views of the chest were obtained. FINDINGS: There is no evidence of acute parenchymal disease, pneumothorax, or pleural effusion. Heart normal size. No evidence of pulmonary edema. 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 There is calcification of the anterior longitudinal ligament within the mid thoracic spine. XR/XR chest 2V IMPRESSION: No acute disease. Dictated By: Asher Wright MD Signed By: <Electronically signed by Asher Wright MD in OV> Independent Historian Clinical information obtained from an independent historian. History obtained from or confirmed by: Spouse ( at bedside providing some information for HPI.) External Record Review External record reviewed: Inpatient record, Office record, Outpatient record, Prior outpatient labs, Prior outpatient radiology, Primary care record and Outside ED record Discharge Plan Discharge Clinical Impression: Acute viral syndrome Patient Disposition: Home, Self-Care Instructions: Viral Syndrome (ED) Additional Instructions: Your chest x-ray was normal today. Your flu, covid, and strep test was also negative. You likely have a viral upper respiratory infection. You do not need antibiotics at this time. Take the cough syrup as directed only at bedtime as needed for severe cough. This will cause drowsiness. Do not drink alcohol or drive while taking this. It is very important to stay well hydrated, take ibuprofen/tylenol as directed as needed for symptoms. Take all prescribed medications as directed. If any new or worsening symptoms occur, including worsening cough, shortness of breath, fevers, please return for re-evaluation. Follow up with your primary care physician. I have attached the [facility] if you need a new primary care physician. Owens radiograf?a de t?rax fue normal hoy. Owens prueba de gripe, covid y estreptococos tambi?n fue negativa. Es probable que tenga yael infecci?n viral de las v?as respiratorias superiores. No necesita antibi?ticos en robert momento. [place] el jarabe para la tos seg?n las indicaciones solo a la hora de acostarse, seg?n sea necesario para la tos severa. [place] provocar? somnolencia. No emigdio alcohol ni maneje mientras karis esto. Es muy importante mantenerse kaycee hidratado, bull ibuprofeno/tylenol seg?n las indicaciones seg?n sea necesario para los s?ntomas. [place] todos los medicamentos recetados seg?n las indicaciones. Si se presentan s?ntomas nuevos o que empeoran, incluido el empeoramiento de la tos, dificultad para respirar, fiebre, regrese para yael nueva evaluaci?n. [place] un seguimiento con owens m?dico de atenci?n primaria. He adjuntado el [facility] si necesita un nuevo m?dico de atenci?n primaria. Prescriptions: New benzonatate 100 mg capsule 100 mg PO Q6H PRN (Reason: cough) Qty: 20 0RF hydrocodone-homatropine [Hycodan] 5-1.5 mg/5 mL (5 mL) syrup 5 ml PO Q4-6H PRN (Reason: cough) Qty: 100 0RF Rx Instructions: Partial Fill upon patient request. No Action benzonatate 100 mg capsule 100 mg PO TID PRN (Reason: cough) Qty: 30 0RF prednisone 20 mg tablet 40 mg PO DAILY Qty: 10 0RF naproxen [Naprosyn] 500 mg tablet 500 mg PO BID PRN (Reason: pain) Qty: 20 0RF lisinopril 10 mg tablet 10 mg PO DAILY Qty: 30 0RF fluticasone propionate [Flonase Allergy Relief] 50 mcg/actuation spray,suspension 2 spray intranasal DAILY Qty: 16 0RF Rx Instructions: administer into each nostril cefuroxime axetil 250 mg tablet 250 mg PO BID 7 Days Qty: 14 0RF Referrals: [facility] [Physician] - Interventions: ED Discharge Assessment Last Done: 07/27/22 10:19 Discharge Date/Time: 07/27/22 10:22
[2022-07-27 08:28] LABS: IDNOW Serial# 08D9AD1C; Strep A Nucleic Acid Negative (Negative)
== END 2022-07-27 10:22 | disposition home or self-care (01) ==
PROVIDERS: Physician Assistant; Physician Assistant Medical; Emergency Provider Emergency Medicine
DX: B34.9 Viral infection, unspecified (principal); R05.9 Cough, unspecified; Z20.822 Contact with and (suspected) exposure to COVID-19
CPT/HCPCS: 71046; 87502; 87635; 87651; 99283; 99284

== ENCOUNTER 2022-08-26 07:34 | Emergency (ER) | payer MEDICAID, OTHER, SELFPAY ==
--- NOTE | ~2022-08-26 | XR_ITS ---
EXAMINATION: XR CHEST CLINICAL INFORMATION: Productive cough COMPARISON: 07/27/2022 TECHNIQUE: 2 views of the chest were obtained. FINDINGS: The cardiomediastinal silhouette is within normal limits. The lungs are well expanded. Stable blunting of the left costophrenic angle, from pleural thickening or trace effusion.. No focal consolidation is otherwise seen. No pulmonary edema. No pneumothorax. Thoracic spine degeneration. XR/XR chest 2V IMPRESSION: No significant interval change as compared to prior. Stable left costophrenic angle blunting, from pleural thickening or trace effusion. No focal consolidation seen.
--- NOTE | 2022-08-26 07:47 | ECG_ITS ---
Test Reason : CHEST PRESSURE Blood Pressure : / mmHG Vent. Rate : 081 BPM Atrial Rate : 081 BPM P-R Int : 130 ms QRS Dur : 072 ms QT Int : 368 ms P-R-T Axes : 048 012 036 degrees QTc Int : 427 ms Normal sinus rhythm Normal ECG No previous ECGs available Referred By: Generic ED Physician Electronically Signed By:GINNY JAQUEZ
[2022-08-26 08:34] VITALS: BP 150/80; PULSE 83; RESP 16; TEMP 37.1; O2SAT 97; BMI 30.3
--- NOTE | 2022-08-26 08:36 | ED_ITS ---
HPI - Chest Pain General Chief Complaint: Upper Respiratory Symptoms Stated Complaint: CHEST PRESSURE CONGESTION Time Seen by Provider: 08/26/22 08:23 Source: patient, RN notes reviewed and old records reviewed Mode of arrival: ambulatory History of Present Illness HPI narrative: 62-year-old female with past medical history of arthritis, gastritis, presenting to the ED complaining of productive cough, chest pressure, mild SOB, & myalgias x 1 month. Of note patient was evaluated in our ED on 07/27/2022 for similar symptoms, diagnosed with acute viral syndrome, discharged with Chase Early/Prince with some relief however persistent symptoms. Denies fever, ear pain, sore throat, abdominal pain, nausea/vomiting, pedal edema, recent travel, sick contacts MD complaint: chest pain Related Data Previous Rx's Medication Instructions Recorded benzonatate 100 mg capsule 100 mg PO TID PRN cough #30 caps 01/10/22 lisinopril 10 mg tablet 10 mg PO DAILY #30 tabs 01/10/22 naproxen 500 mg tablet (Naprosyn) 500 mg PO BID PRN pain #20 tabs 01/10/22 prednisone 20 mg tablet 40 mg PO DAILY #10 tabs 01/10/22 cefuroxime axetil 250 mg tablet 250 mg PO BID 7 days #14 tabs 07/07/22 fluticasone propionate 50 2 spray intranasal DAILY #16 grams 07/07/22 mcg/actuation nasal spray,suspension (Flonase Allergy Relief) benzonatate 100 mg capsule 100 mg PO Q6H PRN cough #20 caps 07/27/22 hydrocodone-homatropine 5 mg-1.5 5 ml PO Q4-6H PRN cough #100 mL 07/27/22 mg/5 mL (5 mL) oral syrup (Hycodan) azithromycin 250 mg tablet See Rx Instructions PO .COMPLEX #6 08/26/22 tabs benzonatate 100 mg capsule 100 mg PO TID PRN cough #14 caps 08/26/22 prednisone 20 mg tablet 40 mg PO DAILY 5 days #10 tabs 08/26/22 Allergies Allergy/AdvReac Type Severity Reaction Status Date / Time No Known Allergies Allergy Verified 06/01/22 11:20 Review of Systems Review of Systems: Constitutional: No Fever, No Chills,No Fatigue, + Malaise ENT/Mouth: No Ear Pain, No Nasal Congestion, No sore throat, No Rhinorrhea, No Swallowing Difficulty Eyes: No Eye Pain, No Swelling, No Redness, No Discharge, No Vision Changes Cardiovascular: + Chest Pain, + SOB, No Dyspnea on Exertion, No Orthopnea, No Edema, No Palpitations Respiratory: + Cough, + Sputum, No Wheezing, No Dyspnea Gastrointestinal: No Nausea, No Vomiting, No Diarrhea, No Constipation, No Abdominal pain Genitourinary: No Dysuria, No Urinary Frequency, No Hematuria, No Flank Pain Musculoskeletal: No joint pain, No Myalgias, No Joint Swelling Skin: No Skin Lesions, No rash Neuro: No Weakness, No Numbness, No Headache Yes all other systems are reviewed and are negative Constitutional: Constitutional: Reports as per [facility] Past Medical History Attestation statement: The following information was validated with the patient. Source: old records reviewed Social History Social History Alcohol intake: never Substance Use Type: Club/Soft[employer] Drugs Advance Directives: No Advance Directives Information Provided: Yes Physical Exam Vital Signs: Vital Signs: Last Vital Signs Temp 98.7 F 08/26/22 08:34 Pulse 83 08/26/22 08:34 Resp 16 08/26/22 08:34 BP 150/80 H 08/26/22 08:34 Pulse Ox 97 08/26/22 09:47 O2 Del Method Room Air 08/26/22 09:47 BMI result Body Mass Index 30.3 Const: General: cooperative, healthy appearing and no acute distress Orientation/consciousness: patient oriented x3 Limitations: no limitations HEENT: Head: Yes normal to inspection and Yes atraumatic Ears: hearing grossly normal bilaterally, external ears normal and TM's normal bilaterally General nose exam: Normal external nose present Face and sinus: Yes normal facial exam Throat: Yes posterior oropharynx normal, Yes tonsils normal, Yes uvula midline, No peritonsillar mass, No uvula laterally displaced and No uvular edema Eyes: General: appearance normal, both eyes and all related structures EOM: EOMs intact bilaterally Neck: Neck: Yes normal visual inspection and Yes no meningeal signs Resp: Effort & Inspection: normal respiratory effort and no respiratory distress Auscultation: clear to auscultation bilaterally, no rales, no rhonchi and no wheezes Cardio: Rate: regular rate Heart sounds: S1 normal heart sound present and S2 normal heart sound present GI: Inspection: Yes normal to inspection Palpation (GI): Soft to palpation, nontender, no guarding and not rigid Skin: Rashes: no rashes Wounds: no wounds Neuro: General: patient oriented x3, tone normal and no meningeal signs Gait exam (Neuro): Normal gait present Extrem: General: Yes normal to inspection, Yes no pedal edema and Yes no calf tenderness Course Course Course Narrative: -1102--no leukocytosis. Labs otherwise reassuring. Troponin negative. -COVID and influenza negative XR chest 2V IMPRESSION: No significant interval change as compared to prior. Stable left costophrenic angle blunting, from pleural thickening or trace effusion. No focal consolidation seen. > suspect bronchitis will discharge patient home with Tessalon Perles, prednisone, and Zithromax Results discussed with patient including worrisome signs and symptoms and strict return precautions, and when to return to the emergency department. They verbalized understanding and feel safe for discharge at this time. Medical Decision Making Medical Decision Making [facility] Narrative: 62-year-old female with past medical history of arthritis, gastritis, presenting to the ED complaining of productive cough, chest pressure, mild SOB, & myalgias x 1 month. On exam vital signs stable, NAD, nontoxic appearing, lungs CTA, no pedal edema/calf tenderness. Concern for pneumonia vs bronchitis vs viral syndrome. Lower suspicion for ACS/PE or CHF Plan: EKG, labs, CXR, COVID/flu testing Please refer to course for remaining clinical decision making, interpretation of labs/imaging results, and discussions with consultants and/or family members. Differential Diagnosis Differential Diagnoses: The differential diagnosis associated with the presentation includes As above Admission/Observation Consideration of admission/observation: Escalation of care including admission/observation considered Lab Data [facility] Lab Attestation statement: I reviewed the patient's lab results. 08/26/22 09:08/26/22 09:23 Labs: Lab Results 08/26/22 08/26/22 08/26/22 Range/Units 09: 09: 09:23 WBC 7.7 (4.8-10.8) X10*3/uL RBC 4.95 (4.20-5.50) X10*6/uL Hgb 12.7 (12.0-16.0) g/dl Hct 40.5 (37.0-47.0) % MCV 81.8 (80.0-98.0) fL MCH 25.7 L (27.0-33.0) pg MCHC 31.4 (31.0-35.0) g/dl RDW 13.6 (11.0-16.0) % Plt Count 256 D (160-400) X10*3/uL MPV 10.0 (9.4-12.3) fL Immature Gran % (Auto) 0.1 (0.0-0.4) % Neut % (Auto) 39.1 L (45-73) % Lymph % (Auto) 46.0 H (20-40) % [place] % (Auto) 9.5 (2-11) % Eos % (Auto) 4.4 H (0-4) % Baso % (Auto) 0.9 (0-2) % Lymph # (Auto) 3.5 (1.2-4.9) X10*3/uL [place] # (Auto) 0.7 (0.1-1.2) X10*3/uL Eos # (Auto) 0.3 (0.0-0.4) X10*3/uL Baso # (Auto) 0.1 (0.0-0.2) X10*3/uL Abs Immat Gran (auto) 0.01 (0.00-0.03) X10*3/uL Absolute Neuts (auto) 3.0 (2.0-8.3) x10*3/uL Absolute Nucleated RBC 0.000 (0.0-0.012) X10*3/uL Nucleated RBC % (auto) 0.0 (0.0-0.2) /100WBC Sodium 140 (135-145) mmol/L Potassium 4.5 (3.3-5.1) mmol/L Chloride 107 (96-108) mmol/L Carbon Dioxide 25 (22-29) mmol/L Anion Gap 13 (12-20) BUN 10 (9-16) mg/dL Creatinine 0.65 (0.5-1.4) mg/dL Estim Creat Clear Calc 75.2 Estimated GFR > 60 Random Glucose 125 H (60-115) mg/dL Calcium 9.8 (8.4-10.2) mg/dL Total Bilirubin 0.4 (0.0-1.0) mg/dL Direct Bilirubin 0.1 (0.0-0.5) mg/dL AST 27 (5-31) U/L ALT 33 H (0-31) U/L Alkaline Phosphatase 94 (39-117) U/L Troponin I High Sens < 2.7 (<3.5-17.0) ng/L Total Protein 7.5 (6.5-8.0) g/dL Albumin 4.3 (3.5-5.0) g/dL COVID-19 ([facility]) (Negative) COVID-19 Clin Com Influenza Type A ([facility]) (Negative) Influenza Type B ([facility]) (Negative) Influenza A & B Note 08/26/22 08/26/22 Range/Units 09:23 09:23 WBC (4.8-10.8) X10*3/uL RBC (4.20-5.50) X10*6/uL Hgb (12.0-16.0) g/dl Hct (37.0-47.0) % MCV (80.0-98.0) fL MCH (27.0-33.0) pg MCHC (31.0-35.0) g/dl RDW (11.0-16.0) % Plt Count (160-400) X10*3/uL MPV (9.4-12.3) fL Immature Gran % (Auto) (0.0-0.4) % Neut % (Auto) (45-73) % Lymph % (Auto) (20-40) % Kitt[place] % (Auto) (2-11) % Eos % (Auto) (0-4) % Baso % (Auto) (0-2) % Lymph # (Auto) (1.2-4.9) X10*3/uL [place] # (Auto) (0.1-1.2) X10*3/uL Eos # (Auto) (0.0-0.4) X10*3/uL Baso # (Auto) (0.0-0.2) X10*3/uL Abs Immat Gran (auto) (0.00-0.03) X10*3/uL Absolute Neuts (auto) (2.0-8.3) x10*3/uL Absolute Nucleated RBC (0.0-0.012) X10*3/uL Nucleated RBC % (auto) (0.0-0.2) /100WBC Sodium (135-145) mmol/L Potassium (3.3-5.1) mmol/L Chloride (96-108) mmol/L Carbon Dioxide (22-29) mmol/L Anion Gap (12-20) BUN (9-16) mg/dL Creatinine (0.5-1.4) mg/dL Estim Creat Clear Calc Estimated GFR Random Glucose (60-115) mg/dL Calcium (8.4-10.2) mg/dL Total Bilirubin (0.0-1.0) mg/dL Direct Bilirubin (0.0-0.5) mg/dL AST (5-31) U/L ALT (0-31) U/L Alkaline Phosphatase (39-117) U/L Troponin I High Sens (<3.5-17.0) ng/L Total Protein (6.5-8.0) g/dL Albumin (3.5-5.0) g/dL COVID-19 ([facility]) Negative (Negative) COVID-19 Clin Com See Note Influenza Type A ([facility]) Negative (Negative) Influenza Type B ([facility]) Negative (Negative) Influenza A & B Note See Note Independent Interpretation I performed an independent interpretation of an: EKG (EKG normal sinus rhythm at a rate of 81. AK interval 130. QTC 427. No STEMI ) Radiology Impression Discussion of test interpretation with radiology: I have reviewed the r adiologist's reading. External Record Review External record reviewed: Inpatient record, Office record, Outpatient record, Prior outpatient labs, Prior outpatient radiology, Primary care record and Outside ED record Tests considered The following testing was considered but not selected: As above Discharge Plan Discharge Clinical Impression: Bronchitis Patient Disposition: Home, Self-Care Instructions: Acute Bronchitis (ED) Additional Instructions: Your blood work and x-ray are reassuring Tessalon Perles are for cough take as needed Prednisone as a steroid, please take as prescribed. In addition Zithromax is as an antibiotic. Follow-up with your doctor. If symptoms persist or worsen return to the ED Owens an?lisis de lelia y kody X son tranquilizadores. Tessalon Perles son para la tos, tome seg?n sea necesario Prednisona taran esteroide, t?gilberto seg?n lo prescrito. Adem?s Zithromax es taran un antibi?bradley. Seguimiento con owens m?dico. Si los s?ntomas persisten o empeoran, regrese al servicio de urgencias. Prescriptions: New azithromycin 250 mg tablet See Rx Instructions .ROUTE .COMPLEX Qty: 6 0RF Rx Instructions: take 500 mg today (day 1), then 250 mg for 4 days (days 2-5) prednisone 20 mg tablet 40 mg PO DAILY 5 Days Qty: 10 0RF benzonatate 100 mg capsule 100 mg PO TID PRN (Reason: cough) Qty: 14 0RF No Action benzonatate 100 mg capsule 100 mg PO TID PRN (Reason: cough) Qty: 30 0RF prednisone 20 mg tablet 40 mg PO DAILY Qty: 10 0RF naproxen [Naprosyn] 500 mg tablet 500 mg PO BID PRN (Reason: pain) Qty: 20 0RF lisinopril 10 mg tablet 10 mg PO DAILY Qty: 30 0RF fluticasone propionate [Flonase Allergy Relief] 50 mcg/actuation spray,suspension 2 spray intranasal DAILY Qty: 16 0RF Rx Instructions: administer into each nostril cefuroxime axetil 250 mg tablet 250 mg PO BID 7 Days Qty: 14 0RF benzonatate 100 mg capsule 100 mg PO Q6H PRN (Reason: cough) Qty: 20 0RF hydrocodone-homatropine [Hycodan] 5-1.5 mg/5 mL (5 mL) syrup 5 ml PO Q4-6H PRN (Reason: cough) Qty: 100 0RF Rx Instructions: Partial Fill upon patient request. Referrals: Physician,None [Primary Care Provider] - 5 days Interventions: ED Discharge Assessment Last Done: 08/26/22 12:02 Discharge Date/Time: 08/26/22 12:02 Print Language: Belgian
[2022-08-26 09:28] LABS: MANUAL DIFF FLAG NO
[2022-08-26 09:31] LABS: Basophils Absolute Auto 0.1 X10*3/uL (0.0-0.2); Basophils Percent Auto 0.9 % (0-2); Eosinophils Absolute Auto 0.3 X10*3/uL (0.0-0.4); Eosinophils Percent Auto 4.4 % (0-4); Hematocrit 40.5 % (37.0-47.0); Hemoglobin 12.7 g/dl (12.0-16.0); Imm Gran Abs Auto 0.01 X10*3/uL (0.00-0.03); Imm Gran Pct Auto 0.1 % (0.0-0.4); Lymphocytes Absolute Auto 3.5 X10*3/uL (1.2-4.9); Mean Corpuscular HGB Conc 31.4 g/dl (31.0-35.0); Mean Corpuscular Hemoglobin 25.7 pg (27.0-33.0); Mean Corpuscular Volume 81.8 fL (80.0-98.0); Monocytes Absolute Auto 0.7 X10*3/uL (0.1-1.2); Monocytes Percent Auto 9.5 % (2-11); Neutrophils Percent Auto 39.1 % (45-73); Platelet Count 256 X10*3/uL (160-400); Red Blood Count 4.95 X10*6/uL (4.20-5.50); Red Cell Distribution Width 13.6 % (11.0-16.0); White Blood Count 7.7 X10*3/uL (4.8-10.8)
[2022-08-26 09:41] LABS: COVID-19 Test Negative (Negative); IDNOW Serial# BCCEAD1C
[2022-08-26 09:45] LABS: IDNOW Serial# 9DB6401D; Influenza A Negative (Negative); Influenza B2 Negative (Negative)
[2022-08-26 09:47] VITALS: O2SAT 97
[2022-08-26 09:49] LABS: Alanine Aminotransferase 33 U/L (0-31); Albumin Level 4.3 g/dL (3.5-5.0); Alkaline Phosphatase 94 U/L (39-117); Anion Gap 13 (12-20); Aspartate Amino Transferase 27 U/L (5-31); Bilirubin Direct 0.1 mg/dL (0.0-0.5); Bilirubin Total 0.4 mg/dL (0.0-1.0); Blood Urea Nitrogen 10 mg/dL (9-16); Calcium 9.8 mg/dL (8.4-10.2); Carbon Dioxide 25 mmol/L (22-29); Chloride 107 mmol/L (96-108); Creatinine Clr Calc Pharmacy 75.2; Estimated Glomerular Filt Rate > 60; Glucose Random 125 mg/dL (60-115); Potassium 4.5 mmol/L (3.3-5.1); Sodium 140 mmol/L (135-145); Total Protein 7.5 g/dL (6.5-8.0)
[2022-08-26 09:57] LABS: Troponin-I High Sensitivity < 2.7 ng/L (<3.5-17.0)
== END 2022-08-26 12:02 | disposition home or self-care (01) ==
PROVIDERS: Physician Assistant; Emergency Provider Internal Medicine
DX: J40 Bronchitis, not specified as acute or chronic (principal); Z20.822 Contact with and (suspected) exposure to COVID-19; Z79.899 Other long term (current) drug therapy
CPT/HCPCS: 36415; 71046; 80048; 80076; 84484; 85025; 87502; 87635; 93005; 99283; 99285

== ENCOUNTER 2022-09-16 16:17 | Emergency (ER) | payer MEDICAID, OTHER, SELFPAY ==
--- NOTE | ~2022-09-16 | XR_ITS ---
EXAMINATION: XR CHEST CLINICAL INFORMATION: Chest pain. COMPARISON: Chest radiograph 08/26/2022. TECHNIQUE: Frontal view of the chest was obtained. FINDINGS: Normal appearance of the cardiomediastinal silhouette. Unchanged mild blunting of the left lateral costophrenic angle, nonspecific could be associated with trace pleural fluid or pleural thickening. No new focal airspace opacity. No pneumothorax. No acute osseous abnormalities. Stable soft tissue calcifications surrounding the acromioclavicular joint and humeral head in the left shoulder. XR/XR chest 1V IMPRESSION: 1. No acute cardiopulmonary findings. 2. Unchanged mild blunting of the left lateral costophrenic angle, nonspecific, could be associated with trace pleural fluid or pleural thickening.
--- NOTE | 2022-09-16 16:19 | ECG_ITS ---
Test Reason : CHEST PAIN Blood Pressure : / mmHG Vent. Rate : 104 BPM Atrial Rate : 104 BPM P-R Int : 126 ms QRS Dur : 076 ms QT Int : 318 ms P-R-T Axes : 057 013 052 degrees QTc Int : 418 ms Sinus tachycardia Cannot rule out Inferior infarct , age undetermined Abnormal ECG When compared with ECG of 26-AUG-2022 07:48, No significant change was found Referred By: Lyn Ring Electronically Signed By:NATALIA PALMER MD
--- NOTE | 2022-09-16 16:20 | ED.GENADULT ---
HPI - General Adult General Chief complaint: Chest Pain Stated complaint: cough, chest pain Time Seen by Provider: 09/16/22 17:14 Source: patient Mode of arrival: ambulatory Limitations: no limitations History of Present Illness HPI narrative: Patient comes to the emergency room complaining of dry cough. Patient states that approximately 6 weeks ago she was diagnosed with a bronchitis. Patient states that she no longer has any fever, no chills, denies chest pain or shortness of breath. Patient states that the cough has actually improved, but she is still coughing. Patient denies weakness or generalized malaise, patient states that she feels completely normal other than having dry cough. Related Data Previous Rx's Medication Instructions Recorded benzonatate 100 mg capsule 100 mg PO TID PRN cough #30 caps 01/10/22 lisinopril 10 mg tablet 10 mg PO DAILY #30 tabs 01/10/22 naproxen 500 mg tablet (Naprosyn) 500 mg PO BID PRN pain #20 tabs 01/10/22 prednisone 20 mg tablet 40 mg PO DAILY #10 tabs 01/10/22 cefuroxime axetil 250 mg tablet 250 mg PO BID 7 days #14 tabs 07/07/22 fluticasone propionate 50 2 spray intranasal DAILY #16 grams 07/07/22 mcg/actuation nasal spray,suspension (Flonase Allergy Relief) benzonatate 100 mg capsule 100 mg PO Q6H PRN cough #20 caps 07/27/22 hydrocodone-homatropine 5 mg-1.5 5 ml PO Q4-6H PRN cough #100 mL 07/27/22 mg/5 mL (5 mL) oral syrup (Hycodan) azithromycin 250 mg tablet See Rx Instructions PO .COMPLEX #6 08/26/22 tabs benzonatate 100 mg capsule 100 mg PO TID PRN cough #14 caps 08/26/22 prednisone 20 mg tablet 40 mg PO DAILY 5 days #10 tabs 08/26/22 codeine 10 mg-guaifenesin 100 mg/5 10 ml PO Q4-6H PRN cough #118 mL 09/16/22 mL oral liquid cefuroxime axetil 250 mg tablet 250 mg PO BID 5 days #10 tabs 09/20/22 Allergies Allergy/AdvReac Type Severity Reaction Status Date / Time No Known Allergies Allergy Verified 09/16/22 16:19 Review of Systems Review of Systems: Constitutional : No Weight loss, No Fever, No Chills, No Night Sweats, No Fatigue, No Malaise ENT/Mouth : No Hearing loss, No Ear Pain, No Nasal Congestion, No Sinus Pain, No Hoarseness, No sore throat, No Rhinorrhea, No Swallowing Difficulty Eyes: No Eye Pain, No Swelling, No Redness, No Foreign Body, No Discharge, No Vision Changes Cardiovascular : No Chest Pain, No SOB, No Dyspnea on Exertion, No Orthopnea, No Edema, No Palpitations Respiratory : Complaining of dry Cough, No Sputum, No Wheezing, No Smoke Exposure, No Dyspnea Gastrointestinal : No Nausea, No Vomiting, No Diarrhea, No Constipation, No abdominal Pain, No Hematochezia, No Melena Genitourinary : no irregular bleeding, No Dysuria, No Urinary Frequency, No Hematuria, No Urinary Incontinence, No Urgency, No Flank Pain, No Urinary Flow Changes, No Hesitancy Musculoskeletal : No joint pain, No Myalgias, No Joint Swelling Skin : No Skin Lesions, No rash Neuro : No Weakness, No Numbness, No Paresthesias, No Loss of Consciousness, No Dizziness, No Headache Psych : No Anxiety/Panic, No Depression, No SI/HI/AH/VH, No Social Issues, Heme/Lymph: No Bruising, No Bleeding,No Lymphadenopathy Endocrine : No Polyuria, No Polydipsia, No Temperature Intolerance [facility] Social History Social History Alcohol intake: never 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 Oriented X3. No acute distress. Eyes: Pupils equal, round and reactive to light. ENT: Pharynx normal. Neck: Normal inspection. Neck supple. No lymph nodes noted. No crepitus CVS: Normal heart rate and rhythm. Pulses normal. Normal S1 and S2 Respiratory: No respiratory distress. Breath sounds normal. No Wheezing. No rales Abdomen: Soft and nontender. No rigidity. No distention. Skin: Skin warm and dry. Normal skin color. Normal skin turgor. Extremities: No lower extremity edema. No Lacerations. No Rash Neuro: Oriented X 3. No motor deficit. No sensory deficit. Moving all extremities. No slurred speech. CN 2 through 12 grossly intact Psych: calm, cooperative, normal affect Course Course Course Narrative: This is an RME: Additional HPI, ROS, PE not included below will be deferred to primary provider. Patient is a 62 year old female presenting for 1 week of cough, chest pain and shortness of breath. Denies, fever chills, abdominal pain, nausea, vomiting. Reports she was recently treated for bronchitis however cough and shortness of breath are worsening. Chest pain worse with cough, patient describing pain as internal pain rating it a 8/10. PE- benign Plan labs, imaging Reevaluation(s) Reevaluation #1: 09/20/2022 - 1726 - urine culture returns and grew Klebsiella pneumoniae, sensitive to cephalosporins. Will treat for urinary tract infection with cefuroxime 250 mg twice a day for the next 5 days. 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 Medical Decision Making Medical Decision Making [facility] Narrative: -my interpretation of EKG: Sinus tachycardia, heart rate 104, no ST segment depression or elevation, no T-wave inversion, QTC 400 -interpretation of chest x-ray: No infiltrates -chemistry unremarkable -I discussed with the patient limits she will likely have cough for a few more weeks, gradually getting better. No need for antibiotics or steroids at this time Admission/Observation Consideration of admission/observation: Escalation of care including admission/observation considered Lab Data [facility] Lab Attestation statement: I reviewed the patient's lab results. 09/16/22 16:49 09/16/22 16:49 Labs: Lab Results 09/16/22 09/16/22 09/16/22 Range/Units 16:48 16:48 16:48 WBC (4.8-10.8) X10*3/uL RBC (4.20-5.50) X10*6/uL Hgb (12.0-16.0) g/dl Hct (37.0-47.0) % MCV (80.0-98.0) fL MCH (27.0-33.0) pg MCHC (31.0-35.0) g/dl RDW (11.0-16.0) % Plt Count (160-400) X10*3/uL MPV (9.4-12.3) fL Immature Gran % (Auto) (0.0-0.4) % Neut % (Auto) (45-73) % Lymph % (Auto) (20-40) % [place] % (Auto) (2-11) % Eos % (Auto) (0-4) % Baso % (Auto) (0-2) % Lymph # (Auto) (1.2-4.9) X10*3/uL [place] # (Auto) (0.1-1.2) X10*3/uL Eos # (Auto) (0.0-0.4) X10*3/uL Baso # (Auto) (0.0-0.2) X10*3/uL Abs Immat Gran (auto) (0.00-0.03) X10*3/uL Absolute Neuts (auto) (2.0-8.3) x10*3/uL Absolute Nucleated RBC (0.0-0.012) X10*3/uL Nucleated RBC % (auto) (0.0-0.2) /100WBC Sodium (135-145) mmol/L Potassium (3.3-5.1) mmol/L Chloride (96-108) mmol/L Carbon Dioxide (22-29) mmol/L Anion Gap (12-20) BUN (9-16) mg/dL Creatinine (0.5-1.4) mg/dL Estim Creat Clear Calc Estimated GFR Random Glucose (60-115) mg/dL Calcium (8.4-10.2) mg/dL Magnesium (1.6-2.6) mg/dL Total Bilirubin (0.0-1.0) mg/dL AST (5-31) U/L ALT (0-31) U/L Alkaline Phosphatase (39-117) U/L Troponin I High Sens < 2.7 (<3.5-17.0) ng/L B-Natriuretic Peptide 16 (<100) pg/mL Total Protein (6.5-8.0) g/dL Albumin (3.5-5.0) g/dL Lipase (8-78) U/L Urine Color Urine Appearance Urine pH (5.0-9.0) Ur Specific [place] (1.005-1.025) Urine Protein (Neg-Trace) mg/dL Urine Glucose (UA) (Negative) mg/dL Urine Ketones (Negative) mg/dL Urine Blood (Negative) Urine Nitrite (Negative) Ur Leukocyte Esterase (Negative) Urine RBC (0-2) /HPF Urine WBC (0-5) /HPF Ur Squamous Epith Cells (0-2) /HPF Urine Bacteria (None Seen) Hyaline Casts (0-2) /LPF COVID-19 ([facility]) Negative (Negative) COVID-19 Clin Com See Note 09/16/22 09/16/22 09/16/22 Range/Units 16:49 16:49 17:51 WBC 8.7 (4.8-10.8) X10*3/uL RBC 4.95 (4.20-5.50) X10*6/uL Hgb 12.6 (12.0-16.0) g/dl Hct 39.8 (37.0-47.0) % MCV 80.4 (80.0-98.0) fL MCH 25.5 L (27.0-33.0) pg MCHC 31.7 (31.0-35.0) g/dl RDW 13.6 (11.0-16.0) % Plt Count 281 (160-400) X10*3/uL MPV 10.2 (9.4-12.3) fL Immature Gran % (Auto) 0.3 (0.0-0.4) % Neut % (Auto) 51.9 (45-73) % Lymph % (Auto) 36.4 (20-40) % [place] % (Auto) 8.6 (2-11) % Eos % (Auto) 2.2 (0-4) % Baso % (Auto) 0.6 (0-2) % Lymph # (Auto) 3.2 (1.2-4.9) X10*3/uL [place] # (Auto) 0.8 (0.1-1.2) X10*3/uL Eos # (Auto) 0.2 (0.0-0.4) X10*3/uL Baso # (Auto) 0.1 (0.0-0.2) X10*3/uL Abs Immat Gran (auto) 0.03 (0.00-0.03) X10*3/uL Absolute Neuts (auto) 4.5 (2.0-8.3) x10*3/uL Absolute Nucleated RBC 0.000 (0.0-0.012) X10*3/uL Nucleated RBC % (auto) 0.0 (0.0-0.2) /100WBC Sodium 140 (135-145) mmol/L Potassium 4.1 (3.3-5.1) mmol/L Chloride 104 (96-108) mmol/L Carbon Dioxide 25 (22-29) mmol/L Anion Gap 15 (12-20) BUN 13 (9-16) mg/dL Creatinine 0.86 (0.5-1.4) mg/dL Estim Creat Clear Calc 57.6 Estimated GFR > 60 Random Glucose 183 H (60-115) mg/dL Calcium 10.1 (8.4-10.2) mg/dL Magnesium 2.2 (1.6-2.6) mg/dL Total Bilirubin 0.4 (0.0-1.0) mg/dL AST 32 H (5-31) U/L ALT 32 H (0-31) U/L Alkaline Phosphatase 87 (39-117) U/L Troponin I High Sens (<3.5-17.0) ng/L B-Natriuretic Peptide (<100) pg/mL Total Protein 8.0 (6.5-8.0) g/dL Albumin 4.1 (3.5-5.0) g/dL Lipase 27 (8-78) U/L Urine Color Yellow Urine Appearance Turbid Urine pH 7.5 (5.0-9.0) Ur Specific [place] 1.020 (1.005-1.025) Urine Protein Negative (Neg-Trace) mg/dL Urine Glucose (UA) Negative (Negative) mg/dL Urine Ketones Trace (Negative) mg/dL Urine Blood Negative (Negative) Urine Nitrite Negative (Negative) Ur Leukocyte Esterase Moderate (2+) H (Negative) Urine RBC 3-5 H (0-2) /HPF Urine WBC 11-20 H (0-5) /HPF Ur Squamous Epith Cells 6-10 (0-2) /HPF Urine Bacteria None Seen (None Seen) Hyaline Casts 0-2 (0-2) /LPF COVID-19 ([facility]) (Negative) COVID-19 Clin Com Radiology Impression Discussion of test interpretation with radiology: I have reviewed the radiologist's reading. Radiologist Impression: FINDINGS: Normal appearance of the cardiomediastinal silhouette. Unchanged mild blunting of the left lateral costophrenic angle, nonspecific could be associated with trace pleural fluid or pleural thickening. No new focal airspace opacity. No pneumothorax. No acute osseous abnormalities. Stable soft tissue calcifications surrounding the acromioclavicular joint and humeral head in the left shoulder. XR/XR chest 1V IMPRESSION: 1.? No acute cardiopulmonary findings. 2.? Unchanged mild blunting of the left lateral costophrenic angle, nonspecific, could be associated with trace pleural fluid or pleural thickening. Discharge Plan Discharge Clinical Impression: Chronic bronchitis Patient Disposition: Home, Self-Care Instructions: Chronic Bronchitis (ED) Additional Instructions: Please follow-up with your primary care physician tomorrow. If you have any worsening or new symptoms, please return to the emergency room or call 911 Prescriptions: New codeine-guaifenesin 10-100 mg/5 mL liquid 10 ml PO Q4-6H PRN (Reason: cough) Qty: 118 0RF cefuroxime axetil 250 mg tablet 250 mg PO BID 5 Days Qty: 10 0RF No Action benzonatate 100 mg capsule 100 mg PO TID PRN (Reason: cough) Qty: 30 0RF prednisone 20 mg tablet 40 mg PO DAILY Qty: 10 0RF naproxen [Naprosyn] 500 mg tablet 500 mg PO BID PRN (Reason: pain) Qty: 20 0RF lisinopril 10 mg tablet 10 mg PO DAILY Qty: 30 0RF fluticasone propionate [Flonase Allergy Relief] 50 mcg/actuation spray,suspension 2 spray intranasal DAILY Qty: 16 0RF Rx Instructions: administer into each nostril cefuroxime axetil 250 mg tablet 250 mg PO BID 7 Days Qty: 14 0RF benzonatate 100 mg capsule 100 mg PO Q6H PRN (Reason: cough) Qty: 20 0RF hydrocodone-homatropine [Hycodan] 5-1.5 mg/5 mL (5 mL) syrup 5 ml PO Q4-6H PRN (Reason: cough) Qty: 100 0RF Rx Instructions: Partial Fill upon patient request. azithromycin 250 mg tablet See Rx Instructions .ROUTE .COMPLEX Qty: 6 0RF Rx Instructions: take 500 mg today (day 1), then 250 mg for 4 days (days 2-5) prednisone 20 mg tablet 40 mg PO DAILY 5 Days Qty: 10 0RF benzonatate 100 mg capsule 100 mg PO TID PRN (Reason: cough) Qty: 14 0RF Interventions: ED Discharge Assessment Last Done: 09/16/22 19:14 Discharge Date/Time: 09/16/22 19:15
[2022-09-16 16:21] VITALS: BP 147/82; PULSE 106; RESP 18; TEMP 36.3; O2SAT 97; BMI 35.8
[2022-09-16 16:56] LABS: MANUAL DIFF FLAG NO
[2022-09-16 16:58] LABS: Basophils Absolute Auto 0.1 X10*3/uL (0.0-0.2); Basophils Percent Auto 0.6 % (0-2); Eosinophils Absolute Auto 0.2 X10*3/uL (0.0-0.4); Eosinophils Percent Auto 2.2 % (0-4); Hematocrit 39.8 % (37.0-47.0); Hemoglobin 12.6 g/dl (12.0-16.0); Imm Gran Abs Auto 0.03 X10*3/uL (0.00-0.03); Imm Gran Pct Auto 0.3 % (0.0-0.4); Lymphocytes Absolute Auto 3.2 X10*3/uL (1.2-4.9); Lymphocytes Percent Auto 36.4 % (20-40); Mean Corpuscular HGB Conc 31.7 g/dl (31.0-35.0); Mean Corpuscular Hemoglobin 25.5 pg (27.0-33.0); Mean Corpuscular Volume 80.4 fL (80.0-98.0); Mean Platelet Volume 10.2 fL (9.4-12.3); Monocytes Absolute Auto 0.8 X10*3/uL (0.1-1.2); Monocytes Percent Auto 8.6 % (2-11); Neutrophils Absolute Auto 4.5 x10*3/uL (2.0-8.3); Neutrophils Percent Auto 51.9 % (45-73); Platelet Count 281 X10*3/uL (160-400); Red Blood Count 4.95 X10*6/uL (4.20-5.50); Red Cell Distribution Width 13.6 % (11.0-16.0); White Blood Count 8.7 X10*3/uL (4.8-10.8)
[2022-09-16 17:11] LABS: COVID-19 Test Negative (Negative); IDNOW Serial# 08D9AD1C
[2022-09-16 17:16] LABS: Alanine Aminotransferase 32 U/L (0-31); Albumin Level 4.1 g/dL (3.5-5.0); Alkaline Phosphatase 87 U/L (39-117); Anion Gap 15 (12-20); Aspartate Amino Transferase 32 U/L (5-31); Bilirubin Total 0.4 mg/dL (0.0-1.0); Blood Urea Nitrogen 13 mg/dL (9-16); Calcium 10.1 mg/dL (8.4-10.2); Carbon Dioxide 25 mmol/L (22-29); Chloride 104 mmol/L (96-108); Creatinine Clr Calc Pharmacy 57.6; Estimated Glomerular Filt Rate > 60; Glucose Random 183 mg/dL (60-115); Lipase 27 U/L (8-78); Magnesium 2.2 mg/dL (1.6-2.6); Potassium 4.1 mmol/L (3.3-5.1); Sodium 140 mmol/L (135-145)
[2022-09-16 17:20] LABS: B Type Natriuretic Peptide 16 pg/mL (<100)
[2022-09-16 17:21] LABS: Troponin-I High Sensitivity < 2.7 ng/L (<3.5-17.0)
[2022-09-16 17:50] VITALS: BP 114/49; PULSE 100; RESP 16; TEMP 37.1; O2SAT 98
--- NOTE | 2022-09-16 17:52 | MHC.EDTECH ---
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
[2022-09-16 18:00] LABS: Appearance Urine Turbid; Color Urine Yellow; Glucose Urine UA Negative (Negative); Leukocyte Esterase Urine Moderate (2+) (Negative); Nitrite Urine Negative (Negative); PH 7.5 (5.0-9.0); UMIC TRIGGER UACC YES; Urine Blood Negative (Negative); Urine Ketones Trace mg/dL (Negative); Urine Protein Negative (Neg-Trace)
[2022-09-16 18:12] LABS: Bacteria Urine None Seen (None Seen); Hyaline Casts Urine 0-2 /LPF (0-2); UACC Culture Trigger YES
== END 2022-09-16 19:15 | disposition home or self-care (01) ==
PROVIDERS: Physician Assistant; Emergency Provider Emergency Medicine
DX: J42 Unspecified chronic bronchitis (principal); R06.02 Shortness of breath; R00.0 Tachycardia, unspecified; Z79.899 Other long term (current) drug therapy
CPT/HCPCS: 36415; 71045; 80053; 81001; 83690; 83735; 83880; 84484; 85025; 87086; 87088; 87186; 87635; 93005; 99283; 99284

== ENCOUNTER 2022-10-18 17:32 | Emergency (ER) | payer MEDICAID, OTHER, SELFPAY ==
--- NOTE | ~2022-10-18 | CT_ITS ---
EXAMINATION: CT HEAD WITHOUT CONTRAST CLINICAL INFORMATION: New onset headache. COMPARISON: CT head 06/01/2022. TECHNIQUE: Contiguous axial imaging was performed from the skull base to vertex without intravenous administration of contrast. This CT examination was performed using dose optimization techniques as appropriate, variously including the following: *Automated exposure control *Adjustment of mA and/or kV according to patient size (this includes techniques or standardized protocols for targeted exams where dose is matched to indication/reason for exam; i.e. extremities or head) *Use of iterative reconstruction technique DLP: 561 mGy-cm FINDINGS: There is no evidence of acute intracranial hemorrhage or edematous territorial infarction. A few foci of hypoattenuation in the periventricular and deep white matter are consistent with mild microangiopathy. Cox-white matter differentiation is preserved. Proportional prominence of the ventricles and sulcal spaces. No evidence for obstructive hydrocephalus. No abnormal mass effect or midline shift. No extra-axial fluid collections. Again noted empty sella turcica. No acute soft tissue or osseous abnormalities. The mastoid air cells and paranasal sinuses are clear. CT/CT head/brain wo IV con IMPRESSION: No evidence of acute intracranial hemorrhage or edematous territorial infarction.
[2022-10-18 17:46] VITALS: BP 140/77; PULSE 73; RESP 18; TEMP 36; O2SAT 98; BMI 33.8
--- NOTE | 2022-10-18 17:48 | ED_ITS ---
HPI - Headache General Chief Complaint: Headache Stated Complaint: lumps on back of head? High BP Time Seen by Provider: 10/18/22 21:22 History of Present Illness HPI Narrative: Patient history of hypertension having headache on the right side of the head since 1800 with remote history of migraines in the past no light sensitivity no nausea no vomiting no fever no chills no vision change blood pressure on arrival was 140/77 no neck Related Data Previous Rx's Medication Instructions Recorded benzonatate 100 mg capsule 100 mg PO TID PRN cough #30 caps 01/10/22 lisinopril 10 mg tablet 10 mg PO DAILY #30 tabs 01/10/22 naproxen 500 mg tablet (Naprosyn) 500 mg PO BID PRN pain #20 tabs 01/10/22 prednisone 20 mg tablet 40 mg PO DAILY #10 tabs 01/10/22 cefuroxime axetil 250 mg tablet 250 mg PO BID 7 days #14 tabs 07/07/22 fluticasone propionate 50 2 spray intranasal DAILY #16 grams 07/07/22 mcg/actuation nasal spray,suspension (Flonase Allergy Relief) benzonatate 100 mg capsule 100 mg PO Q6H PRN cough #20 caps 07/27/22 hydrocodone-homatropine 5 mg-1.5 5 ml PO Q4-6H PRN cough #100 mL 07/27/22 mg/5 mL (5 mL) oral syrup (Hycodan) azithromycin 250 mg tablet See Rx Instructions PO .COMPLEX #6 08/26/22 tabs benzonatate 100 mg capsule 100 mg PO TID PRN cough #14 caps 08/26/22 prednisone 20 mg tablet 40 mg PO DAILY 5 days #10 tabs 08/26/22 codeine 10 mg-guaifenesin 100 mg/5 10 ml PO Q4-6H PRN cough #118 mL 09/16/22 mL oral liquid cefuroxime axetil 250 mg tablet 250 mg PO BID 5 days #10 tabs 09/20/22 tramadol 50 mg tablet 50 mg PO Q6H PRN pain #20 tabs 10/19/22 Allergies Allergy/AdvReac Type Severity Reaction Status Date / Time No Known Allergies Allergy Verified 10/18/22 17:46 Review of Systems Review of Systems: Yes all other systems are reviewed and are negative [facility] Social History Social History Alcohol intake: never 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 Oriented X3. No acute distress. Eyes: PERRLA, No Nystagmus ENT: Pharynx normal. Oral Mucosa moist no temporal artery tenderness Neck: Normal inspection. Neck supple. CVS: Normal heart rate and rhythm. Pulses normal. Respiratory: No respiratory distress. Equal air entry bilateral, no wheezing/rales/rhonchi Abdomen: Soft and nontender. Bowel sounds are present, no mass palpable, no CVA tenderness Skin: Skin warm and dry. Normal skin color. Normal skin turgor. Extremities: No lower extremity edema. No calf tenderness Neuro: Oriented X 3. No motor deficit. No sensory deficit.No cerebellar signs , cranial nerves II-XII intact Course Course Course Narrative: RME - 62 yo [place] speaking female with history of HTN presents to the ER for evaluation of intermittent stabbing headache on the right side of her head that started last night. She is worried about her BP due to dietary noncompliance w/ excessive salt intake lately. BP 140/70s in triage. Had transient bilateral hand numbness that self-resovled this morning. Neuro exam is nonfocal in triage Plan: treat headache, reassess Medications Administered Discontinued Medications Generic Name Dose Route Start Last Admin Trade Name Freq PRN Reason Stop Dose Admin Tramadol HCl 50 mg 10/18/22 22:51 10/19/22 00:10 Tramadol Hcl 50 Mg Tablet PO 10/18/22 22:52 50 mg ONCE ONE Administration Medical Decision Making Medical Decision Making [facility] Narrative: Patient had CT negative for acute clinically has migraine headache will discharge patient on Fioricet Differential Diagnosis Differential Diagnoses: The differential diagnosis associated with the presentation includes Subarachnoid hemorrhage/migraine/tension headache Lab Data 10/18/22 21:38 10/18/22 22:56 Labs: Lab Results 10/18/22 10/18/22 10/18/22 Range/Units 21:38 21:38 22:43 WBC 10.8 (4.8-10.8) X10*3/uL RBC 5.02 (4.20-5.50) X10*6/uL Hgb 12.8 (12.0-16.0) g/dl Hct 41.1 (37.0-47.0) % MCV 81.9 (80.0-98.0) fL MCH 25.5 L (27.0-33.0) pg MCHC 31.1 (31.0-35.0) g/dl RDW 13.6 (11.0-16.0) % Plt Count 270 (160-400) X10*3/uL MPV 10.2 (9.4-12.3) fL Immature Gran % (Auto) 0.4 (0.0-0.4) % Neut % (Auto) 42.1 L (45-73) % Lymph % (Auto) 45.1 H (20-40) % [place] % (Auto) 9.0 (2-11) % Eos % (Auto) 2.8 (0-4) % Baso % (Auto) 0.6 (0-2) % Lymph # (Auto) 4.9 (1.2-4.9) X10*3/uL [place] # (Auto) 1.0 (0.1-1.2) X10*3/uL Eos # (Auto) 0.3 (0.0-0.4) X10*3/uL Baso # (Auto) 0.1 (0.0-0.2) X10*3/uL Abs Immat Gran (auto) 0.04 H (0.00-0.03) X10*3/uL Absolute Neuts (auto) 4.6 (2.0-8.3) x10*3/uL Absolute Nucleated RBC 0.000 (0.0-0.012) X10*3/uL Nucleated RBC % (auto) 0.0 (0.0-0.2) /100WBC PT 9.9 L (10.0-13.1) SEC INR 0.9 (0.9-1.1) APTT 29.6 (26.0-36.4) SEC Sodium (135-145) mmol/L Potassium (3.3-5.1) mmol/L Chloride (96-108) mmol/L Carbon Dioxide (22-29) mmol/L Anion Gap (12-20) BUN (9-16) mg/dL Creatinine (0.5-1.4) mg/dL Estim Creat Clear Calc Estimated GFR POC Glucose 129 H (60-115) mg/dL Random Glucose (60-115) mg/dL Calcium (8.4-10.2) mg/dL Troponin I High Sens (<3.5-17.0) ng/L 10/18/22 10/18/22 Range/Units 22:56 22:56 WBC (4.8-10.8) X10*3/uL RBC (4.20-5.50) X10*6/uL Hgb (12.0-16.0) g/dl Hct (37.0-47.0) % MCV (80.0-98.0) fL MCH (27.0-33.0) pg MCHC (31.0-35.0) g/dl RDW (11.0-16.0) % Plt Count (160-400) X10*3/uL MPV (9.4-12.3) fL Immature Gran % (Auto) (0.0-0.4) % Neut % (Auto) (45-73) % Lymph % (Auto) (20-40) % [place] % (Auto) (2-11) % Eos % (Auto) (0-4) % Baso % (Auto) (0-2) % Lymph # (Auto) (1.2-4.9) X10*3/uL [place] # (Auto) (0.1-1.2) X10*3/uL Eos # (Auto) (0.0-0.4) X10*3/uL Baso # (Auto) (0.0-0.2) X10*3/uL Abs Immat Gran (auto) (0.00-0.03) X10*3/uL Absolute Neuts (auto) (2.0-8.3) x10*3/uL Absolute Nucleated RBC (0.0-0.012) X10*3/uL Nucleated RBC % (auto) (0.0-0.2) /100WBC PT (10.0-13.1) SEC INR (0.9-1.1) APTT (26.0-36.4) SEC Sodium 139 (135-145) mmol/L Potassium 4.2 (3.3-5.1) mmol/L Chloride 106 (96-108) mmol/L Carbon Dioxide 24 (22-29) mmol/L Anion Gap 13 (12-20) BUN 12 (9-16) mg/dL Creatinine 0.63 (0.5-1.4) mg/dL Estim Creat Clear Calc 82.3 Estimated GFR > 60 POC Glucose (60-115) mg/dL Random Glucose 127 H (60-115) mg/dL Calcium 9.9 (8.4-10.2) mg/dL Troponin I High Sens < 2.7 (<3.5-17.0) ng/L Discharge Plan Discharge Clinical Impression: Migraine Patient Disposition: Home, Self-Care Instructions: Migraine Headache (ED) Additional Instructions: Possibly you have migraine headache Take medication for headache as prescribed and follow with PCP Posiblemente tengas migra?a [place] los medicamentos para el dolor de kushal seg?n lo recetado y siga con PCP Prescriptions: New tramadol 50 mg tablet 50 mg PO Q6H PRN (Reason: pain) Qty: 20 0RF No Action benzonatate 100 mg capsule 100 mg PO TID PRN (Reason: cough) Qty: 30 0RF prednisone 20 mg tablet 40 mg PO DAILY Qty: 10 0RF naproxen [Naprosyn] 500 mg tablet 500 mg PO BID PRN (Reason: pain) Qty: 20 0RF lisinopril 10 mg tablet 10 mg PO DAILY Qty: 30 0RF fluticasone propionate [Flonase Allergy Relief] 50 mcg/actuation spray,suspension 2 spray intranasal DAILY Qty: 16 0RF Rx Instructions: administer into each nostril cefuroxime axetil 250 mg tablet 250 mg PO BID 7 Days Qty: 14 0RF codeine-guaifenesin 10-100 mg/5 mL liquid 10 ml PO Q4-6H PRN (Reason: cough) Qty: 118 0RF cefuroxime axetil 250 mg tablet 250 mg PO BID 5 Days Qty: 10 0RF benzonatate 100 mg capsule 100 mg PO Q6H PRN (Reason: cough) Qty: 20 0RF hydrocodone-homatropine [Hycodan] 5-1.5 mg/5 mL (5 mL) syrup 5 ml PO Q4-6H PRN (Reason: cough) Qty: 100 0RF Rx Instructions: Partial Fill upon patient request. azithromycin 250 mg tablet See Rx Instructions .ROUTE .COMPLEX Qty: 6 0RF Rx Instructions: take 500 mg today (day 1), then 250 mg for 4 days (days 2-5) prednisone 20 mg tablet 40 mg PO DAILY 5 Days Qty: 10 0RF benzonatate 100 mg capsule 100 mg PO TID PRN (Reason: cough) Qty: 14 0RF Interventions: ED Discharge Assessment Last Done: 10/19/22 01:14 Discharge Date/Time: 10/19/22 01:17 Print Language: [place]
[2022-10-18 21:02] VITALS: BP 126/68; PULSE 71; RESP 18; TEMP 36.9; O2SAT 97
--- NOTE | 2022-10-18 21:06 | ECG_ITS ---
Test Reason : TENSION ELLIOTT Blood Pressure : / mmHG Vent. Rate : 067 BPM Atrial Rate : 067 BPM P-R Int : 146 ms QRS Dur : 074 ms QT Int : 410 ms P-R-T Axes : 051 018 044 degrees QTc Int : 433 ms Normal sinus rhythm Normal ECG When compared with ECG of 16-SEP-2022 16:28, Vent. rate has decreased BY 37 BPM Nonspecific T wave abnormality no longer evident in Lateral leads Referred By: Generic ED Physician Electronically Signed By:Johnny Humphrey
[2022-10-18 21:43] LABS: MANUAL DIFF FLAG NO
[2022-10-18 21:52] LABS: Basophils Absolute Auto 0.1 X10*3/uL (0.0-0.2); Basophils Percent Auto 0.6 % (0-2); Eosinophils Absolute Auto 0.3 X10*3/uL (0.0-0.4); Eosinophils Percent Auto 2.8 % (0-4); Hematocrit 41.1 % (37.0-47.0); Hemoglobin 12.8 g/dl (12.0-16.0); Imm Gran Abs Auto 0.04 X10*3/uL (0.00-0.03); Imm Gran Pct Auto 0.4 % (0.0-0.4); Lymphocytes Absolute Auto 4.9 X10*3/uL (1.2-4.9); Lymphocytes Percent Auto 45.1 % (20-40); Mean Corpuscular HGB Conc 31.1 g/dl (31.0-35.0); Mean Corpuscular Hemoglobin 25.5 pg (27.0-33.0); Mean Corpuscular Volume 81.9 fL (80.0-98.0); Mean Platelet Volume 10.2 fL (9.4-12.3); Neutrophils Absolute Auto 4.6 x10*3/uL (2.0-8.3); Neutrophils Percent Auto 42.1 % (45-73); Platelet Count 270 X10*3/uL (160-400); Red Blood Count 5.02 X10*6/uL (4.20-5.50); Red Cell Distribution Width 13.6 % (11.0-16.0); White Blood Count 10.8 X10*3/uL (4.8-10.8)
[2022-10-18 22:33] LABS: INTERNATIONAL NORM RATIO 0.9 (0.9-1.1); Prothrombin Time 9.9 SEC (10.0-13.1)
[2022-10-18 22:36] LABS: Partial Thromboplastin Time 29.6 SEC (26.0-36.4)
[2022-10-18 22:40] VITALS: BP 137/68; PULSE 68; RESP 12; TEMP 36.8; O2SAT 97
[2022-10-18 23:02] LABS: Glucose, Whole Blood 129 mg/dL (60-115)
[2022-10-18 23:21] LABS: Anion Gap 13 (12-20); Blood Urea Nitrogen 12 mg/dL (9-16); Calcium 9.9 mg/dL (8.4-10.2); Carbon Dioxide 24 mmol/L (22-29); Chloride 106 mmol/L (96-108); Creatinine Clr Calc Pharmacy 82.3; Estimated Glomerular Filt Rate > 60; Glucose Random 127 mg/dL (60-115); Potassium 4.2 mmol/L (3.3-5.1); Sodium 139 mmol/L (135-145)
[2022-10-18 23:27] VITALS: BP 135/65; PULSE 64; RESP 16; TEMP 36.7; O2SAT 98
[2022-10-18 23:30] LABS: Troponin-I High Sensitivity < 2.7 ng/L (<3.5-17.0)
[2022-10-19] MEDS: traMADoL HCL 50 MG TABLET PO (00:10)
== END 2022-10-19 01:17 | disposition home or self-care (01) ==
PROVIDERS: Emergency Provider Internal Medicine
DX: G43.909 Migraine, unspecified, not intractable, without status migrainosus (principal); Z79.899 Other long term (current) drug therapy
CPT/HCPCS: 36415; 70450; 80048; 82947; 84484; 85025; 85610; 85730; 93005; 99284

== ENCOUNTER → 2022-10-18 21:06 | Outpatient (BNV) | payer SELFPAY | PROVIDERS: Emergency Provider Internal Medicine; Visit Provider Internal Medicine Cardiovascular Disease | DX: R51.9 Headache, unspecified (principal) | CPT/HCPCS: 93010 ==

== ENCOUNTER 2023-02-16 13:25 | Emergency (ER) | payer MEDICAID, OTHER, SELFPAY ==
--- NOTE | ~2023-02-16 | XR_ITS ---
EXAMINATION: CHEST 2 VIEWS CLINICAL INFORMATION: cough. COMPARISON: 09/16/2022. TECHNIQUE: PA and lateral views of the chest obtained. FINDINGS: The lungs are well expanded. Chronic blunting of the lateral left costophrenic angle on the frontal view was likely reflects component of scarring with no significant effusion appreciated on the lateral view. No focal infiltrate, edema, or pneumothorax. Cardiac and mediastinal silhouettes are within normal limits for technique. No acute bony abnormality seen with degenerative changes in the spine and shoulders XR/XR chest 2V IMPRESSION: Chronic appearing changes but no acute superimposed airspace disease.
[2023-02-16 13:34] VITALS: BP 129/88; PULSE 85; RESP 16; TEMP 37.4; O2SAT 98; BMI 35.9
--- NOTE | 2023-02-16 13:35 | ED_ITS ---
HPI - General Adult General Chief complaint: Upper Respiratory Symptoms Stated complaint: ? UTI ? COVID Cough Time Seen by Provider: 02/16/23 14:38 Source: patient, RN notes reviewed and old records reviewed Mode of arrival: ambulatory History of Present Illness HPI narrative: 62-year-old Italian-speaking female with a past medical history of hypertension presenting to the ED complaining of productive cough of clear phlegm, headache, chills, mild SOB x 2 weeks. Also reports urinary frequency and dysuria x 1 week. Admits daughter tested positive for COVID-19 today. Also reports at home sick with similar symptoms. Denies known fever, chest pain, abdominal pain, nausea/vomiting, recent travel, flank pain Onset (ago): week(s) Related Data Previous Rx's Medication Instructions Recorded benzonatate 100 mg capsule 100 mg PO TID PRN cough #30 caps 01/10/22 lisinopril 10 mg tablet 10 mg PO DAILY #30 tabs 01/10/22 naproxen 500 mg tablet (Naprosyn) 500 mg PO BID PRN pain #20 tabs 01/10/22 prednisone 20 mg tablet 40 mg (2 x 20 mg) PO DAILY #10 tabs 01/10/22 cefuroxime axetil 250 mg tablet 250 mg PO BID 7 days #14 tabs 07/07/22 fluticasone propionate 50 2 spray intranasal DAILY #16 grams 07/07/22 mcg/actuation nasal spray,suspension (Flonase Allergy Relief) benzonatate 100 mg capsule 100 mg PO Q6H PRN cough #20 caps 07/27/22 hydrocodone-homatropine 5 mg-1.5 5 ml PO Q4-6H PRN cough #100 mL 07/27/22 mg/5 mL (5 mL) oral syrup (Hycodan) azithromycin 250 mg tablet See Rx Instructions PO .COMPLEX #6 08/26/22 tabs benzonatate 100 mg capsule 100 mg PO TID PRN cough #14 caps 08/26/22 prednisone 20 mg tablet 40 mg (2 x 20 mg) PO DAILY 5 days 08/26/22 #10 tabs codeine 10 mg-guaifenesin 100 mg/5 10 ml PO Q4-6H PRN cough #118 mL 09/16/22 mL oral liquid cefuroxime axetil 250 mg tablet 250 mg PO BID 5 days #10 tabs 09/20/22 tramadol 50 mg tablet 50 mg PO Q6H PRN pain #20 tabs 10/19/22 benzonatate 100 mg capsule 100 mg PO TID PRN cough #14 caps 02/16/23 prednisone 20 mg tablet 40 mg (2 x 20 mg) PO DAILY 5 days 02/16/23 #10 tabs Allergies Allergy/AdvReac Type Severity Reaction Status Date / Time No Known Allergies Allergy Verified 10/18/22 17:46 Review of Systems Review of Systems: Constitutional: No Fever, + Chills ENT/Mouth: No Ear Pain, No Nasal Congestion, No Sinus Pain, No Hoarseness, No sore throat, No Rhinorrhea, No Swallowing Difficulty Cardiovascular: No Chest Pain, + SOB Respiratory: + Cough, + Sputum, No Wheezing Gastrointestinal: No Nausea, No Vomiting, No Diarrhea, No Constipation, No Abdominal pain Genitourinary: + Dysuria, + Urinary Frequency, No Hematuria, No Urinary Incontinence/retention, No Urgency, No Flank Pain Musculoskeletal: No joint pain, No Myalgias, No Joint Swelling Skin: No Skin Lesions, No rash Neuro: No Weakness, No Numbness, No Paresthesias Yes all other systems are reviewed and are negative Constitutional: Constitutional: Reports as per [facility] Past Medical History Attestation statement: The following information was validated with the patient. 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 Advance Directives: No Advance Directives Information Provided: Yes Physical Exam ED Vital Signs: Vital Signs - 24 hr 02/16/23 13:34 02/16/23 15:23 Temperature 99.3 F 98.5 F Pulse Rate 85 77 Respiratory Rate 16 17 Blood Pressure 129/88 137/79 Pulse Oximetry 98 96 Oxygen Delivery Method Room Air Room Air BMI result Body Mass Index 35.9 Const General: cooperative, healthy appearing and no acute distress Orientation/consciousness: patient oriented x3 Limitations: no limitations HENMT Head: Yes normal to inspection and Yes atraumatic Ears: hearing grossly normal bilaterally General nose exam: Normal external nose present Face and sinus: Yes normal facial exam Eyes General: appearance normal, both eyes and all related structures EOM: EOMs intact bilaterally Neck Neck: Yes normal visual inspection and Yes no meningeal signs Resp Effort & Inspection: normal respiratory effort and no respiratory distress Auscultation: clear to auscultation bilaterally, no crackles, no rales, no rhonchi and no wheezes Cardio Rate: regular rate Heart sounds: S1 normal heart sound present and S2 normal heart sound present Skin Rashes: no rashes Wounds: no wounds Neuro General: patient oriented x3, tone normal and no meningeal signs Cranial nerves: Yes CN's II-XII intact bilaterally Gait exam (Neuro): Normal gait present Extrem General: Yes normal to inspection Course Course Course Narrative: This is an RME: Additional HPI, ROS, PE not included below will be deferred to primary provider. This is a 62-year-old uruguayan speaking female, hx of hypertension, presenting to the emergency department with complaints of headaches and productive cough with clear sputum x2 weeks. Patient has had multiple sick contacts in her household with COVID. No fevers. Already endorsing urinary frequency x several days. Plan: Viral swabs, CXR, UA -COVID / flu and RSV negative XR chest 2V IMPRESSION: Chronic appearing changes but no acute superimposed airspace disease. -1608--UA contaminated however appears infected and patient is symptomatic. Will treat with antibiotics Results discussed with patient including worrisome signs and symptoms and strict return precautions, and when to return to the emergency department. They verbalized understanding and feel safe for discharge at this time. Medical Decision Making Medical Decision Making [facility] Narrative: 62-year-old Italian-speaking female with a past medical history of hypertension presenting to the ED complaining of productive cough of clear phlegm, headache, chills, mild SOB x 2 weeks. Also reports urinary frequency and dysuria x 1 week. On exam vital signs stable, NAD, nontoxic appearing, lungs CTA. Concern for COVID-19/viral illness vs bronchitis vs pneumonia. Lower suspicion for ACS/PE or DVT. Concern for UTI. Lower suspicion for pyelo, stone, appendicitis/diverticulitis Plan: Viral testing, UA, CXR Please refer to course for remaining clinical decision making, interpretation of labs/imaging results, and discussions with consultants and/or family members. Differential Diagnosis Differential Diagnoses: The differential diagnosis associated with the presentation includes As above Lab Data [facility] Lab Attestation statement: I reviewed the patient's lab results. Labs: Lab Results 02/16/23 02/16/23 Range/Units 14:18 15:17 Urine Color Yellow Urine Appearance Cloudy Urine pH 5.0 (5.0-9.0) Ur Specific [place] 1.025 (1.005-1.025) Urine Protein Negative (Neg-Trace) mg/dL Urine Glucose (UA) Negative (Negative) mg/dL Urine Ketones Negative (Negative) mg/dL Urine Blood Moderate (2+) H (Negative) Urine Nitrite Negative (Negative) Ur Leukocyte Esterase Moderate (2+) H (Negative) Urine RBC 6-10 H (0-2) /HPF Urine WBC 21-50 H (0-5) /HPF Ur Squamous Epith Cells 11-20 (0-2) /HPF Urine Bacteria Trace (None Seen) Hyaline Casts 0-2 (0-2) /LPF Influenza Type A (PCR) NEGATIVE (Negative) Influenza Type B (PCR) NEGATIVE (Negative) RSV RNA Qual (PCR) NEGATIVE (Negative) SARS-CoV-2 RNA (RT-PCR) NEGATIVE (Negative) Independent Interpretation I performed an independent interpretation of an: Plain X-Ray Radiology Impression Discussion of test interpretation with radiology: I have reviewed the radiologist's reading. External Record Review External record reviewed: Inpatient record, Office record, Outpatient record, Prior outpatient labs, Prior outpatient radiology, Primary care record and Outside ED record Tests considered The following testing was considered but not selected: As above Prescription Management I considered prescription management with: Antiviral and Antibiotic Discharge Plan Discharge Clinical Impression: Bronchitis, Upper respiratory infection Patient Disposition: Home, Self-Care Instructions: Upper Respiratory Infection (DC), Acute Bronchitis (ED) Additional Instructions: You tested negative for COVID, flu, RSV Your x-ray does not show pneumonia, you likely have bronchitis Emilypriyanka Alizachiara are for cough, take as needed Prednisone as a steroid Place of close follow-up with her doctor If symptoms persist or worsen return to the ED Prescriptions: New prednisone 20 mg tablet 40 mg PO DAILY 5 Days Qty: 10 0RF benzonatate 100 mg capsule 100 mg PO TID PRN (Reason: cough) Qty: 14 0RF No Action benzonatate 100 mg capsule 100 mg PO TID PRN (Reason: cough) Qty: 30 0RF prednisone 20 mg tablet 40 mg PO DAILY Qty: 10 0RF naproxen [Naprosyn] 500 mg tablet 500 mg PO BID PRN (Reason: pain) Qty: 20 0RF lisinopril 10 mg tablet 10 mg PO DAILY Qty: 30 0RF fluticasone propionate [Flonase Allergy Relief] 50 mcg/actuation spray,suspension 2 spray intranasal DAILY Qty: 16 0RF Rx Instructions: administer into each nostril cefuroxime axetil 250 mg tablet 250 mg PO BID 7 Days Qty: 14 0RF codeine-guaifenesin 10-100 mg/5 mL liquid 10 ml PO Q4-6H PRN (Reason: cough) Qty: 118 0RF cefuroxime axetil 250 mg tablet 250 mg PO BID 5 Days Qty: 10 0RF tramadol 50 mg tablet 50 mg PO Q6H PRN (Reason: pain) Qty: 20 0RF benzonatate 100 mg capsule 100 mg PO Q6H PRN (Reason: cough) Qty: 20 0RF hydrocodone-homatropine [Hycodan] 5-1.5 mg/5 mL (5 mL) syrup 5 ml PO Q4-6H PRN (Reason: cough) Qty: 100 0RF Rx Instructions: Partial Fill upon patient request. azithromycin 250 mg tablet See Rx Instructions .ROUTE .COMPLEX Qty: 6 0RF Rx Instructions: take 500 mg today (day 1), then 250 mg for 4 days (days 2-5) prednisone 20 mg tablet 40 mg PO DAILY 5 Days Qty: 10 0RF benzonatate 100 mg capsule 100 mg PO TID PRN (Reason: cough) Qty: 14 0RF Referrals: Physician,None [Primary Care Provider] - 5 days Print Language: Italian
[2023-02-16 15:11] LABS: Influenza A PCR NEGATIVE (Negative); Influenza B PCR NEGATIVE (Negative); Resp Syncy Virus RNA Qual PCR NEGATIVE (Negative); SARS COV2 PCR INHOUSE NEGATIVE (Negative)
[2023-02-16 15:23] VITALS: BP 137/79; PULSE 77; RESP 17; TEMP 36.9; O2SAT 96
[2023-02-16 15:23] LABS: Appearance Urine Cloudy; Color Urine Yellow; Glucose Urine UA Negative (Negative); Leukocyte Esterase Urine Moderate (2+) (Negative); Nitrite Urine Negative (Negative); Specific Gravity - Urine 1.025 (1.005-1.025); UMIC TRIGGER UACC YES; Urine Blood Moderate (2+) (Negative); Urine Ketones Negative (Negative); Urine Protein Negative (Neg-Trace)
[2023-02-16 16:06] LABS: Bacteria Urine Trace (None Seen); Hyaline Casts Urine 0-2 /LPF (0-2); UACC Culture Trigger YES; WBC Urine 21-50 /HPF (0-5)
== END 2023-02-16 16:19 | disposition home or self-care (01) ==
PROVIDERS: Physician Assistant; Physician Assistant Medical; Emergency Provider Emergency Medicine
DX: J40 Bronchitis, not specified as acute or chronic (principal); J06.9 Acute upper respiratory infection, unspecified; R05.9 Cough, unspecified; R06.02 Shortness of breath; R35.0 Frequency of micturition; R30.0 Dysuria; Z20.822 Contact with and (suspected) exposure to COVID-19; Z20.828 Contact with and (suspected) exposure to other viral communicable diseases; Z79.899 Other long term (current) drug therapy
CPT/HCPCS: 0241U; 71046; 81001; 87086; 99283; 99284

== ENCOUNTER 2023-05-24 08:32 | Emergency (ER) | payer MEDICAID, OTHER, SELFPAY ==
[2023-05-24 09:00] VITALS: BP 148/76; PULSE 82; RESP 18; TEMP 36.4; O2SAT 97; BMI 32.9
[2023-05-24 09:56] LABS: Influenza A PCR NEGATIVE (Negative); Influenza B PCR NEGATIVE (Negative); Resp Syncy Virus RNA Qual PCR NEGATIVE (Negative); SARS COV2 PCR INHOUSE POSITIVE (Negative)
--- NOTE | 2023-05-24 10:43 | ED_ITS ---
HPI - General Adult General Chief complaint: General Medical Stated complaint: cold like symptoms Time Seen by Provider: 05/24/23 09:11 Source: patient, RN notes reviewed and clinical product manager Mode of arrival: ambulatory Limitations: language barrier History of Present Illness HPI narrative: This is a 62-year-old female, with a history of hypertension, presenting to the emergency department with complaints of headache, chills, nasal congestion, sore throat, and cough since yesterday. Patient denies any chest pain or shortness of breath. She denies any abdominal pain, nausea, vomiting or diarrhea. No sick contacts. Denies taking any medications at home to treat her current symptoms. She did not take her hypertensive medication today. No other complaints or concerns at this time. MD complaint: Headache, body aches, sore throat, cough Onset (ago): day(s) Severity: moderate Quality: aching Pain Consistency: constant Exacerbating factors: none Associated symptoms: cough, fever/chills and headaches Treatments prior to arrival: none Related Data Previous Rx's Medication Instructions Recorded benzonatate 100 mg capsule 100 mg PO TID PRN cough #30 caps 01/10/22 lisinopril 10 mg tablet 10 mg PO DAILY #30 tabs 01/10/22 naproxen 500 mg tablet (Naprosyn) 500 mg PO BID PRN pain #20 tabs 01/10/22 prednisone 20 mg tablet 40 mg (2 x 20 mg) PO DAILY #10 tabs 01/10/22 cefuroxime axetil 250 mg tablet 250 mg PO BID 7 days #14 tabs 07/07/22 fluticasone propionate 50 2 spray intranasal DAILY #16 grams 07/07/22 mcg/actuation nasal spray,suspension (Flonase Allergy Relief) benzonatate 100 mg capsule 100 mg PO Q6H PRN cough #20 caps 07/27/22 hydrocodone-homatropine 5 mg-1.5 5 ml PO Q4-6H PRN cough #100 mL 07/27/22 mg/5 mL (5 mL) oral syrup (Hycodan) azithromycin 250 mg tablet See Rx Instructions PO .COMPLEX #6 08/26/22 tabs benzonatate 100 mg capsule 100 mg PO TID PRN cough #14 caps 08/26/22 prednisone 20 mg tablet 40 mg (2 x 20 mg) PO DAILY 5 days 08/26/22 #10 tabs codeine 10 mg-guaifenesin 100 mg/5 10 ml PO Q4-6H PRN cough #118 mL 09/16/22 mL oral liquid cefuroxime axetil 250 mg tablet 250 mg PO BID 5 days #10 tabs 09/20/22 tramadol 50 mg tablet 50 mg PO Q6H PRN pain #20 tabs 10/19/22 benzonatate 100 mg capsule 100 mg PO TID PRN cough #14 caps 02/16/23 cefuroxime axetil 250 mg tablet 250 mg PO BID 7 days #14 tabs 02/16/23 prednisone 20 mg tablet 40 mg (2 x 20 mg) PO DAILY 5 days 02/16/23 #10 tabs ibuprofen 600 mg tablet 600 mg PO Q6H PRN pain #30 tabs 05/24/23 Allergies Allergy/AdvReac Type Severity Reaction Status Date / Time No Known Allergies Allergy Verified 10/18/22 17:46 Review of Systems Review of Systems: Yes all other systems are reviewed and are negative Constitutional: Constitutional: Reports as per [facility] Past Medical History Attestation statement: The following information was validated with the patient. 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 Advance Directives: No Advance Directives Information Provided: Yes Physical Exam ED Vital Signs: Vital Signs - 24 hr 05/24/23 09:00 Temperature 97.6 F Pulse Rate 82 Respiratory Rate 18 Blood Pressure 148/76 H Pulse Oximetry 97 Oxygen Delivery Method Room Air BMI result Body Mass Index 32.9 Const General: cooperative, comfortable and no acute distress Orientation/consciousness: patient oriented x3 Limitations: no limitations [facility] Head: Yes normal to inspection, Yes normocephalic and Yes atraumatic Ears: hearing grossly normal bilaterally and TM's normal bilaterally General nose exam: Normal external nose present Face and sinus: Yes normal facial exam Mouth: Normal oral and palatal mucosa present, oropharynx normal and moist mucous membranes Throat: Yes posterior oropharynx normal Eyes General: appearance normal, both eyes and all related structures Eyelids: Yes eyelids normal Conjunctivae: conjunctivae normal Sclerae: sclerae normal Pupils: Equal, round and reactive pupils present EOM: EOMs intact bilaterally Neck Neck: Yes normal visual inspection, Yes full ROM and Yes no lymphadenopathy Lymphatic: no lymphadenopathy noted Chest Chest palpation & inspection: normal inspection of the chest Resp Effort & Inspection: normal respiratory effort and able to speak in complete sentences Auscultation: clear to auscultation bilaterally, no crackles, no rales, no rhonchi and no wheezes Cardio Rate: regular rate Rhythm: regular rhythm Heart sounds: S1 normal heart sound present and S2 normal heart sound present GI Inspection: Yes normal to inspection Skin General skin exam: no rashes or lesions noted Trauma: no lacerations or abrasions Wounds: no wounds Neuro General: patient oriented x3 and moves all extremities Cranial nerves: Yes Equal, round and reactive pupils present Extrem General: Yes normal to inspection Right upper extremity: normal to inspection Left upper extremity: normal to inspection Right lower extremity: normal to inspection Left lower extremity: normal to inspection Course Reevaluation(s) Reevaluation #1: Patient tested positive for COVID in the department today. Discussed these findings with patient and clinical product manager at bedside. Answered all questions. Given return precautions. She understands and agrees with plan. Patient stable for discharge. Time: 10:45 Medical Decision Making Medical Decision Making [facility] Narrative: This is a 62-year-old female, with a history of hypertension, presenting to the emergency department with complaints of body aches, headache, chills, runny nose, and sore throat x1 day. On arrival, patient mildly hypertensive at 148/76. She states that she forgot to take her blood pressure medication this morning as she was in a rash. All other vital signs within normal limits. Lungs are clear to auscultation bilaterally, heart regular rate and rhythm. Oropharynx nonerythematous, she is speaking in full sentences. Differential diagnoses include COVID, flu, URI, sinusitis. Less likely pneumonia. Plan: COVID, flu, RSV swab Differential Diagnosis Differential Diagnoses: The differential diagnosis associated with the presentation includes See above Lab Data [facility] Lab Attestation statement: I reviewed the patient's lab results. COVID positive Labs: Lab Results 05/24/23 Range/Units 09:08 Influenza Type A (PCR) NEGATIVE (Negative) Influenza Type B (PCR) NEGATIVE (Negative) RSV RNA Qual (PCR) NEGATIVE (Negative) SARS-CoV-2 RNA (RT-PCR) POSITIVE A (Negative) Discharge Plan Discharge Clinical Impression: COVID-19 Patient Disposition: Home, Self-Care Instructions: COVID-19 (Coronavirus Disease 2019) (ED) Additional Instructions: You tested positive for COVID-19 in the department today. Drink plenty of fluids and get plenty of rest. Take Tylenol and Motrin as needed for symptoms. If any new or worsening symptoms occur including but not limited to chest pain or shortness of breath, please return for re-evaluation. COVID-19 stands for coronavirus disease 2019. It is caused by a virus called SARS-CoV-2. The virus first appeared in late 2018 and quickly spread around the world. Many people only have mild cold symptoms. Some people have digestive problems, like nausea or diarrhea. There have also been some reports of rashes or other skin symptoms. For most people, symptoms get better within a few days to weeks.? Some people with COVID-19 continue to have some symptoms for weeks or months.? What should I do if I have symptoms or test positive?If you have a fever, cough, cold symptoms, or other symptoms of COVID-19, get tested. You can use the flowchart to figure out when to test and what to do based on the results If you?test positive: ? Self-isolate for at least 5 days, even if you feel well. Self-isolation means staying apart from other people, even the people you live with. The 5 days should start the day?after?you first noticed symptoms or got a positive test result. If you have a weak immune system or if you still have a fever, you might need to self-isolate for longer than 5 days. ?After self-isolating for 5 days, wear a mask around all other people for at least 5 more days. Some people use antigen tests to decide how long to keep wearing the mask. If you do this, you can stop wearing a mask once you test negative on 2 antigen tests done at least 2 days apart. ?If your symptoms are severe, or if you are at risk for severe illness,?call ?your doctor or nurse. They can tell you if you need to be seen. Depending on your situation, they might suggest treatment. Ehsan positivo por COVID-19 en el departamento hoy. Yola muchos l?quidos y descanse mucho. [place] Tylenol y Motrin seg?n sea necesario para los s?ntomas. Si se presenta alg?n s?ntoma nuevo o que empeora, incluidos, entre otros, dolor en el pecho o dificultad para respirar, regrese para yael nueva evaluaci?n. COVID-19 significa enfermedad del coronavirus 2019 . Es causada por un virus llamado SARS-CoV-2. El virus apareci? por primera vez a finales de 2019 y r?pidamente se extendi? por todo el jonathon. Muchas personas s?lo tienen s?ntomas leves de resfriado. Algunas personas tienen problemas digestivos, taran n?useas o diarrea. Tambi?n townsend habido algunos informes de erupciones u otros s?ntomas cut?neos. Para la mayor?a de las personas, los s?ntomas mejoran en unos pocos d?as o semanas. Algunas personas con COVID-19 contin?an teniendo algunos s?ntomas valerie semanas o meses. ?Qu? tim hacer si tengo s?ntomas o tengo un resultado positivo? Si tiene fiebre, tos, s?ntomas de resfriado u otros s?ntomas de COVID-19, h?gase la prueba. Puede utilizar el diagrama de flujo para determinar cu?ndo realizar la prueba y qu? hacer en funci?n de los resultados. Si el resultado es positivo: ? Aislarse valerie al menos 5 d?as, incluso si se siente kaycee. El autoaislamiento significa mantenerse alejado de otras personas, incluso de las personas con las que vive. Los 5 d?as deben comenzar el d?a despu?s de que haya notado los s?ntomas por primera vez o haya obtenido un resultado positivo en la prueba. Si tiene un sistema inmunol?gico d?dao o si todav?a tiene fiebre, es posible que deba aislarse por m?s de 5 d?as. ?Despu?s de aislarse valerie 5 d?as, use yael mascarilla con todas las dem?s personas valerie al menos 5 d?as m?s. Algunas personas utilizan pruebas de ant?genos para decidir cu?nto tiempo deben seguir usando la mascarilla. Si hace esto, puede dejar de usar yael mascarilla yael vez que d? negativo en 2 pruebas de ant?genos realizadas con al menos 2 d?as de diferencia. ?Si sb s?ntomas son graves o si corre riesgo de sufrir yael enfermedad grave, ll cierra a warner m?dico o enfermera. Ellos pueden decirle si necesita que lo atiendan. Dependiendo de warner situaci?n, podr?an sugerirle un tratamiento. Prescriptions: New ibuprofen 600 mg tablet 600 mg PO Q6H PRN (Reason: pain) Qty: 30 0RF No Action benzonatate 100 mg capsule 100 mg PO TID PRN (Reason: cough) Qty: 30 0RF prednisone 20 mg tablet 40 mg PO DAILY Qty: 10 0RF naproxen [Naprosyn] 500 mg tablet 500 mg PO BID PRN (Reason: pain) Qty: 20 0RF lisinopril 10 mg tablet 10 mg PO DAILY Qty: 30 0RF fluticasone propionate [Flonase Allergy Relief] 50 mcg/actuation spray,suspension 2 spray intranasal DAILY Qty: 16 0RF Rx Instructions: administer into each nostril cefuroxime axetil 250 mg tablet 250 mg PO BID 7 Days Qty: 14 0RF codeine-guaifenesin 10-100 mg/5 mL liquid 10 ml PO Q4-6H PRN (Reason: cough) Qty: 118 0RF cefuroxime axetil 250 mg tablet 250 mg PO BID 5 Days Qty: 10 0RF tramadol 50 mg tablet 50 mg PO Q6H PRN (Reason: pain) Qty: 20 0RF prednisone 20 mg tablet 40 mg PO DAILY 5 Days Qty: 10 0RF benzonatate 100 mg capsule 100 mg PO TID PRN (Reason: cough) Qty: 14 0RF cefuroxime axetil 250 mg tablet 250 mg PO BID 7 Days Qty: 14 0RF benzonatate 100 mg capsule 100 mg PO Q6H PRN (Reason: cough) Qty: 20 0RF hydrocodone-homatropine [Hycodan] 5-1.5 mg/5 mL (5 mL) syrup 5 ml PO Q4-6H PRN (Reason: cough) Qty: 100 0RF Rx Instructions: Partial Fill upon patient request. azithromycin 250 mg tablet See Rx Instructions .ROUTE .COMPLEX Qty: 6 0RF Rx Instructions: take 500 mg today (day 1), then 250 mg for 4 days (days 2-5) prednisone 20 mg tablet 40 mg PO DAILY 5 Days Qty: 10 0RF benzonatate 100 mg capsule 100 mg PO TID PRN (Reason: cough) Qty: 14 0RF
== END 2023-05-24 12:21 | disposition home or self-care (01) ==
PROVIDERS: Emergency Provider Emergency Medicine
DX: U07.1 COVID-19 (principal); R51.9 Headache, unspecified; R68.83 Chills (without fever); R09.81 Nasal congestion; J02.9 Acute pharyngitis, unspecified; R05.9 Cough, unspecified; I10 Essential (primary) hypertension
CPT/HCPCS: 0241U; 99282; 99283

== ENCOUNTER 2023-06-09 09:04 | Emergency (ER) | payer MEDICAID, OTHER, SELFPAY ==
--- NOTE | ~2023-06-09 | XR_ITS ---
EXAMINATION: XR CHEST CLINICAL INFORMATION: Cough, post conduit. Evaluate for pneumonia COMPARISON: Chest x-ray 02/16/2023 TECHNIQUE: 2 views of the chest were obtained. FINDINGS: The lungs are well-expanded and clear. There is blunting of left CP angle with mild elevated left hemidiaphragm. Heart size and pulmonary vascularity is normal. There is mild right lateral thoracic spine spondylosis. XR/XR chest 2V IMPRESSION: Mild blunting of left CP angle with mild elevated left hemidiaphragm. No acute process seen.
[2023-06-09 09:15] VITALS: BP 134/77; PULSE 100; RESP 18; TEMP 36.6; O2SAT 97; BMI 35.7
[2023-06-09 10:01] LABS: Influenza A PCR NEGATIVE (Negative); Influenza B PCR NEGATIVE (Negative); Resp Syncy Virus RNA Qual PCR NEGATIVE (Negative); SARS COV2 PCR INHOUSE NEGATIVE (Negative)
--- NOTE | 2023-06-09 11:09 | ED.URI ---
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 No chest pain, shortness of breath, fevers, chills, leg swelling, leg pain, vomiting, diarrhea, abdominal pain. Related Data Previous Rx's Medication Instructions Recorded benzonatate 100 mg capsule 100 mg PO TID PRN cough #30 caps 01/10/22 lisinopril 10 mg tablet 10 mg PO DAILY #30 tabs 01/10/22 naproxen 500 mg tablet (Naprosyn) 500 mg PO BID PRN pain #20 tabs 01/10/22 prednisone 20 mg tablet 40 mg (2 x 20 mg) PO DAILY #10 tabs 01/10/22 cefuroxime axetil 250 mg tablet 250 mg PO BID 7 days #14 tabs 07/07/22 fluticasone propionate 50 2 spray intranasal DAILY #16 grams 07/07/22 mcg/actuation nasal spray,suspension (Flonase Allergy Relief) benzonatate 100 mg capsule 100 mg PO Q6H PRN cough #20 caps 07/27/22 hydrocodone-homatropine 5 mg-1.5 5 ml PO Q4-6H PRN cough #100 mL 07/27/22 mg/5 mL (5 mL) oral syrup (Hycodan) azithromycin 250 mg tablet See Rx Instructions PO .COMPLEX #6 08/26/22 tabs benzonatate 100 mg capsule 100 mg PO TID PRN cough #14 caps 08/26/22 prednisone 20 mg tablet 40 mg (2 x 20 mg) PO DAILY 5 days 08/26/22 #10 tabs codeine 10 mg-guaifenesin 100 mg/5 10 ml PO Q4-6H PRN cough #118 mL 09/16/22 mL oral liquid cefuroxime axetil 250 mg tablet 250 mg PO BID 5 days #10 tabs 09/20/22 tramadol 50 mg tablet 50 mg PO Q6H PRN pain #20 tabs 10/19/22 benzonatate 100 mg capsule 100 mg PO TID PRN cough #14 caps 02/16/23 cefuroxime axetil 250 mg tablet 250 mg PO BID 7 days #14 tabs 02/16/23 prednisone 20 mg tablet 40 mg (2 x 20 mg) PO DAILY 5 days 02/16/23 #10 tabs ibuprofen 600 mg tablet 600 mg PO Q6H PRN pain #30 tabs 05/24/23 Allergies Allergy/AdvReac Type Severity Reaction Status Date / Time No Known Allergies Allergy Verified 10/18/22 17:46 Review of Systems Review of Systems: Yes all other systems are reviewed and are negative Constitutional: Constitutional: Reports no additional constitutional complaints, Denies body ache(s), Denies chills, Denies fever(s), Denies headache(s) and Denies weakness Eyes: Eyes: Reports no additional eye complaints and Denies change in vision ENT: Reports system reviewed and no additional complaints, except as documented, Denies dizziness, Denies headache(s), Reports nasal congestion, Denies nasal discharge and Denies neck pain Cardiovascular: Cardiovascular: Reports no additional cardiovascular complaints, Denies chest pain, Denies leg edema and Denies dyspnea Respiratory: Respiratory: Reports no additional respiratory complaints, Reports cough and Denies dyspnea Gastrointestinal: Gastrointestinal: Reports no additional gastrointestinal complaints, Denies abdominal pain, Denies diarrhea, Denies nausea and Denies vomiting Genitourinary: Genitourinary: Reports no additional female genitourinary complaints and Denies urinary incontinence Musculoskeletal: Musculoskeletal: Reports no additional musculoskeletal complaints, Denies back pain, Denies arthralgias, Denies joint swelling, Denies neck pain, Denies numbness and Denies tingling Integumentary/Breasts: Skin/Breast: Reports system reviewed and no additional complaints, except as docu and Denies rash Neurologic: Reports system reviewed and no additional complaints, except as documented, Denies Abnormal speech present, Denies dizziness, Denies headache(s), Denies numbness, Denies tingling and Denies weakness PMFSH Past Medical History Attestation statement: The following information was validated with the patient. 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 Advance Directives: No Advance Directives Information Provided: No Physical Exam Vital Signs: Vital Signs: Last Vital Signs Temp 98 F 06/09/23 09:15 Pulse 100 06/09/23 09:15 Resp 18 06/09/23 09:15 BP 134/77 06/09/23 09:15 Pulse Ox 97 06/09/23 09:15 O2 Del Method Room Air 06/09/23 09:15 BMI result Body Mass Index 35.7 Const: General: cooperative, healthy appearing, comfortable and no acute distress Orientation/consciousness: patient oriented x3 Limitations: no limitations HEENT: Head: Yes normal to inspection Ears: hearing grossly normal bilaterally and TM's normal bilaterally General nose exam: Normal external nose present Face and sinus: Yes normal facial exam Mouth: Normal oral and palatal mucosa present Throat: Yes posterior oropharynx normal, Yes tonsils normal and Yes uvula midline Eyes: General: appearance normal, both eyes and all related structures Pupils: Equal, round and reactive pupils present Neck: Neck: Yes normal visual inspection, Yes full ROM, Yes no lymphadenopathy and Yes no meningeal signs Chest: Chest palpation & inspection: normal inspection of the chest Resp: Effort & Inspection: normal respiratory effort Auscultation: clear to auscultation bilaterally Cardio: Rate: regular rate Rhythm: regular rhythm Peripheral pulses: Peripheral pulses 2+ throughout GI: Inspection: Yes normal to inspection Palpation (GI): Soft to palpation and nontender Auscultation: normal bowel sounds Back/Spine/Pelvis: Thoracic/Lumbar Spine: thoracic and lumbar spine normal to inspection Skin: General skin exam: no rashes or lesions noted Neuro: General: patient oriented x3, no meningeal signs, no focal motor deficits and normal sensation to monofilament Cranial nerves: Yes Equal, round and reactive pupils present Cognition (Neuro): normal cognition Speech: No Abnormal speech present Gait exam (Neuro): Normal gait present Motor exam (neuro): 5/5 motor strength present throughout Extrem: General: Yes normal to inspection, Yes no pedal edema and Yes no calf tenderness Medical Decision Making Medical Decision Making MDM Narrative: 62-year-old female who has a past medical history of high blood pressure who presents to the ER with complaints of continued coughing congestion after having COVID 3 weeks ago. No chest pain, shortness of breath, fevers, chills, leg swelling, leg pain, vomiting, diarrhea, abdominal pain. Lungs are clear. Vitals are stable. Will send viral testing, obtain chest x-ray may be residual symptoms secondary to recent viral infection although will rule out superimposed bacterial infection Differential Diagnosis Differential Diagnoses: The differential diagnosis associated with the presentation includes pneumonia, viral infection Admission/Observation Consideration of admission/observation: Escalation of care including admission/observation considered no hypoxia or tachypnea to suggest need for supplemental oxygen and or admission Lab Data MDM Lab Attestation statement: I reviewed the patient's lab results. Labs: Lab Results 06/09/23 Range/Units 09:20 Influenza Type A (PCR) NEGATIVE (Negative) Influenza Type B (PCR) NEGATIVE (Negative) RSV RNA Qual (PCR) NEGATIVE (Negative) SARS-CoV-2 RNA (RT-PCR) NEGATIVE (Negative) Independent Interpretation I performed an independent interpretation of an: Plain X-Ray Interpretation: i independently reviewed the x-ray and agree with report Radiology Impression Discussion of test interpretation with radiology: I have reviewed the radiologist's reading. Radiologist Impression: [place] [id number] XRay Report Signed Patient: Patrica Jefferson MR#: [id number] : 1960 Acct:[id number] Age/Sex: 62 / F ADM Date: 06/09/23 Loc: .ED Attending Dr: Ordering Physician: Mar Siddiqi NP Date of Service: 06/09/23 Procedure(s): XR chest 2V Accession Number(s): [id number] cc: Physician,None ; Mar Siddiqi NP~ EXAMINATION: XR CHEST CLINICAL INFORMATION: Cough, post conduit. Evaluate for pneumonia COMPARISON: Chest x-ray 02/16/2023 TECHNIQUE: 2 views of the chest were obtained. FINDINGS: The lungs are well-expanded and clear. There is blunting of left CP angle with mild elevated left hemidiaphragm. Heart size and pulmonary vascularity is normal. There is mild right lateral thoracic spine spondylosis. XR/XR chest 2V IMPRESSION: Mild blunting of left CP angle with mild elevated left hemidiaphragm. No acute process seen. Independent Historian Clinical information obtained from an independent historian. History obtained from or confirmed by: Spouse Tests considered The following testing was considered but not selected: no hypoxia or tachypnea or tachycardia or clinical findings concerning for PE rewuiring labs, CT Prescription Management I considered prescription management with: Antibiotic Chronic Conditions Patient?s care impacted by: Hypertension Discharge Plan Discharge Clinical Impression: Cough Patient Disposition: Home, Self-Care Instructions: Chronic Cough (ED) Additional Instructions: Las pruebas de gripe, covid y rsv son negativas. La radiograf?a de t?rax no muestra pueumon?a. Es posible que sb s?ntomas persistan debido a warner reciente infecci?n viral. Puede continuar con los medicamentos de venta tawanda seg?n sea necesario. Consulte a warner PCP si persisten los s?ntomas. Testing for flu, covid, rsv are negative. Chest x-ray shows no pneumonia. Your symptoms may be lingering from your recent viral infection. You may continue over the counter medications as needed. See your PCP for any continued symptoms. Prescriptions: No Action benzonatate 100 mg capsule 100 mg PO TID PRN (Reason: cough) Qty: 30 0RF prednisone 20 mg tablet 40 mg PO DAILY Qty: 10 0RF naproxen [Naprosyn] 500 mg tablet 500 mg PO BID PRN (Reason: pain) Qty: 20 0RF lisinopril 10 mg tablet 10 mg PO DAILY Qty: 30 0RF fluticasone propionate [Flonase Allergy Relief] 50 mcg/actuation spray,suspension 2 spray intranasal DAILY Qty: 16 0RF Rx Instructions: administer into each nostril cefuroxime axetil 250 mg tablet 250 mg PO BID 7 Days Qty: 14 0RF codeine-guaifenesin 10-100 mg/5 mL liquid 10 ml PO Q4-6H PRN (Reason: cough) Qty: 118 0RF cefuroxime axetil 250 mg tablet 250 mg PO BID 5 Days Qty: 10 0RF tramadol 50 mg tablet 50 mg PO Q6H PRN (Reason: pain) Qty: 20 0RF prednisone 20 mg tablet 40 mg PO DAILY 5 Days Qty: 10 0RF benzonatate 100 mg capsule 100 mg PO TID PRN (Reason: cough) Qty: 14 0RF cefuroxime axetil 250 mg tablet 250 mg PO BID 7 Days Qty: 14 0RF benzonatate 100 mg capsule 100 mg PO Q6H PRN (Reason: cough) Qty: 20 0RF hydrocodone-homatropine [Hycodan] 5-1.5 mg/5 mL (5 mL) syrup 5 ml PO Q4-6H PRN (Reason: cough) Qty: 100 0RF Rx Instructions: Partial Fill upon patient request. azithromycin 250 mg tablet See Rx Instructions .ROUTE .COMPLEX Qty: 6 0RF Rx Instructions: take 500 mg today (day 1), then 250 mg for 4 days (days 2-5) prednisone 20 mg tablet 40 mg PO DAILY 5 Days Qty: 10 0RF benzonatate 100 mg capsule 100 mg PO TID PRN (Reason: cough) Qty: 14 0RF ibuprofen 600 mg tablet 600 mg PO Q6H PRN (Reason: pain) Qty: 30 0RF Referrals: Physician,None [Primary Care Provider] - 1 week Print Language: Citizen Of [place]
== END 2023-06-09 12:32 | disposition home or self-care (01) ==
PROVIDERS: Emergency Provider Student in an Organized Health Care Education/Training Program
DX: R05.9 Cough, unspecified (principal); U09.9 Post COVID-19 condition, unspecified; R09.89 Other specified symptoms and signs involving the circulatory and respiratory systems; Z11.52 Encounter for screening for COVID-19; Z20.828 Contact with and (suspected) exposure to other viral communicable diseases
CPT/HCPCS: 0241U; 71046; 99283

== ENCOUNTER 2023-12-01 08:31 | Emergency (ER) | payer MEDICAID, OTHER, SELFPAY ==
--- NOTE | ~2023-12-01 | XR_ITS ---
EXAMINATION: XR CHEST CLINICAL INFORMATION: Productive cough COMPARISON: 06/09/2023 TECHNIQUE: 2 views of the chest were obtained. FINDINGS: Lung volumes are symmetric. Chronic blunting of the left costophrenic angle, which may reflect pleural thickening/scarring. No acute consolidation is seen. No evidence of pneumothorax, pleural effusion, or pulmonary edema. The cardiomediastinal contour is unremarkable. Degenerative changes are noted in the spine. XR/XR chest 2V IMPRESSION: No acute cardiopulmonary findings. Electronically signed by: Miki Cabrera MD 12/01/2023 10:15 AM EDT
[2023-12-01 08:44] VITALS: BP 139/82; PULSE 99; RESP 18; TEMP 36.8; O2SAT 95; BMI 40.3
--- NOTE | 2023-12-01 09:16 | ED.URI ---
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 Cough has been productive of yellow sputum. Reports at home ill with similar symptoms. Denies fever/chills, dizziness, sore throat, chest pain, hemoptysis, shortness of breath, dyspnea. Also admits to chronic right upper arm pain x months. No injury/trauma/fall. Not taking any OTC meds for this at home. Denies swelling or skin changes, neck pain, numbness/tingling/weakness of the RUE. Related Data Previous Rx's ?Medication ?Instructions ?Recorded benzonatate 100 mg capsule 100 mg PO TID PRN cough #30 caps 01/10/22 lisinopril 10 mg tablet 10 mg PO DAILY #30 tabs 01/10/22 naproxen 500 mg tablet (Naprosyn) 500 mg PO BID PRN pain #20 tabs 01/10/22 prednisone 20 mg tablet 40 mg (2 x 20 mg) PO DAILY #10 tabs 01/10/22 cefuroxime axetil 250 mg tablet 250 mg PO BID 7 days #14 tabs 07/07/22 fluticasone propionate 50 2 spray intranasal DAILY #16 grams 07/07/22 mcg/actuation nasal spray,suspension (Flonase Allergy Relief) benzonatate 100 mg capsule 100 mg PO Q6H PRN cough #20 caps 07/27/22 hydrocodone-homatropine 5 mg-1.5 5 ml PO Q4-6H PRN cough #100 mL 07/27/22 mg/5 mL (5 mL) oral syrup (Hycodan) azithromycin 250 mg tablet See Rx Instructions PO .COMPLEX #6 08/26/22 tabs benzonatate 100 mg capsule 100 mg PO TID PRN cough #14 caps 08/26/22 prednisone 20 mg tablet 40 mg (2 x 20 mg) PO DAILY 5 days 08/26/22 #10 tabs codeine 10 mg-guaifenesin 100 mg/5 10 ml PO Q4-6H PRN cough #118 mL 09/16/22 mL oral liquid cefuroxime axetil 250 mg tablet 250 mg PO BID 5 days #10 tabs 09/20/22 tramadol 50 mg tablet 50 mg PO Q6H PRN pain #20 tabs 10/19/22 benzonatate 100 mg capsule 100 mg PO TID PRN cough #14 caps 02/16/23 cefuroxime axetil 250 mg tablet 250 mg PO BID 7 days #14 tabs 02/16/23 prednisone 20 mg tablet 40 mg (2 x 20 mg) PO DAILY 5 days 02/16/23 #10 tabs ibuprofen 600 mg tablet 600 mg PO Q6H PRN pain #30 tabs 05/24/23 benzonatate 100 mg capsule 100 mg PO BID PRN cough #20 caps 12/01/23 naproxen 500 mg tablet 500 mg PO Q8-12H PRN pain (scale 12/01/23 score 1-3) #20 tabs Allergies Allergy/AdvReac Type Severity Reaction Status Date / Time No Known Allergies Allergy Verified 12/01/23 08:44 Review of Systems Review of Systems: Constitutional: No fever, chills, fatigue, night sweats, weight changes ENT/Mouth: No ear pain, hearing loss, nasal congestion, sinus pain, rhinorrhea, sore throat Eyes: No eye pain, swelling, redness, vision changes, discharge Cardio: No chest pain, palpitations, DON, orthopnea, peripheral edema Pulm: No SOB, wheezing, dyspnea, hemoptysis, +productive cough GI: No nausea, vomiting, hematemesis, abdominal pain, diarrhea, constipation, hematochezia, melena : No irregular bleeding, dysuria, frequency, urgency, hesitancy, hematuria, flank pain, urinary flow changes, urinary incontinence or retention MSK: No back pain, neck pain, joint pain, myalgias Skin: No lesions, rashes Neuro: No weakness, numbness, paresthesias, LOC, dizziness, +headache Psych: No anxiety/panic, depression, SI/HI, AH/VH All other systems reviewed and are negative. FORMERLY [facility], 1928–[facility] Past Medical History Attestation statement: The following information was validated with the patient. 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 General: Well appearing, in no acute distress. Skin: Warm, dry, intact. No rashes or lesions. Head: Normocephalic, atraumatic. EENT: Hearing is intact b/l. Conjunctiva clear. Sclera is anicteric. PERRLA. EOM intact. Moist mucous membranes.? Neck: Supple without LAD. FROM. Trachea midline.? Cardiac: Chest wall symmetric. RRR. No MRG. No JVD. Lungs: Normal respiratory effort without accessory muscle use. CTA bilaterally. No rales, rhonchi, or wheezes.? Abdomen: Soft, non-tender, non-distended. No rebound tenderness or guarding. Positive BS x4. Back: No midline spinous or paraspinal tenderness. No step off deformity. Ext: Upper and lower extremities atraumatic, without tenderness, deformity, swelling or erythema. Full ROM throughout. Capillary refill <2 seconds in all extremities. Pulses 2+ equal and bilateral. Neuro: AOx3. Normal speech. Strength 5/5 intact throughout. Sensation intact to light touch. NV intact distally. Ambulating with steady gait. Psych: Appropriate mood and affect. Responds appropriately to questions. Course Course Course Narrative: 1120 -- Patient tested positive for covid and negative for flu/rsv. Chest x-ray without focal consolidation or infiltrate to suggest pneumonia. I discussed all workup results with patient. Educated on symptomatic treatment. Will send Chase Early to pharmacy for treatment of cough. Patient has remained stable throughout ED visit today. Discussed worrisome signs and symptoms and when to return to the ED. All questions answered at this time. Patient is agreeable with disposition and stable for discharge. Medications Administered Discontinued Medications Generic Name Dose Route Start Last Admin Trade Name Freq PRN Reason Stop Dose Admin Ketorolac Tromethamine 30 mg 12/01/23 09:13 12/01/23 09:35 Ketorolac Tromethamine 30 Mg/Ml Vial IM 12/01/23 09:14 30 mg ONCE ONE Administration Medical Decision Making Medical Decision Making [facility] Narrative: 63 year old Liberian speaking female with no significant pmhx presents to the ED today for evaluation of generalized headache and cough x2 weeks. Vital signs stable, afebrile. She is nontoxic appearing and in NAD. Lungs are CTA b/l. No increased effort of breathing. RRR. No JVD or peripheral edema. No calf tenderness bilaterally. Full ROM intact to right shoulder and right elbow. Strength 5/5 intact throughout. No overlying skin changes or deformities. No palpable tenderness of right upper extremity. 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 2+ PT/DP pulse intact. Differential diagnosis includes viral syndrome, bronchitis, pneumonia. unlikely effusion, CHF, ACS, arrhythmia. Suspicion for arthritis. Unlikely DVT, NV compromise, fracture, threat to limb. Plan for viral swabs, cxr, and pain control. Differential Diagnosis Differential Diagnoses: The differential diagnosis associated with the presentation includes as above. Admission/Observation Not indicated Lab Data [facility] Lab Attestation statement: I reviewed the patient's lab results. As above Labs: Lab Results 12/01/23 Range/Units 09:25 Influenza Type A (PCR) NEGATIVE (Negative) Influenza Type B (PCR) NEGATIVE (Negative) RSV RNA Qual (PCR) NEGATIVE (Negative) SARS-CoV-2 RNA (RT-PCR) POSITIVE A (Negative) Independent Interpretation I performed an independent interpretation of an: Plain X-Ray Interpretation: Chest x-ray without infiltrate or consolidation, agree with radiologist's interpretation. Radiology Impression Discussion of test interpretation with radiology: I have reviewed the radiologist's reading. Radiologist Impression: EXAMINATION: XR CHEST CLINICAL INFORMATION: Productive cough COMPARISON: 06/09/2023 TECHNIQUE: 2 views of the chest were obtained. FINDINGS: Lung volumes are symmetric. Chronic blunting of the left costophrenic angle, which may reflect pleural thickening/scarring. No acute consolidation is seen. No evidence of pneumothorax, pleural effusion, or pulmonary edema. The cardiomediastinal contour is unremarkable. Degenerative changes are noted in the spine. XR/XR chest 2V IMPRESSION: No acute cardiopulmonary findings. Electronically signed by: Miki Cabrera MD 12/01/2023 10:15 AM EDT RP Independent Historian Clinical information obtained from an independent historian. History obtained from or confirmed by: Spouse () Prescription Management I considered prescription management with: Other (Chase Early) Social Determinants Patient?s care significantly limited by Social Determinants of Health including: Other Social Determinant of Health Critical Care Time Critical Care Time Critical Care Time: No Discharge Plan Discharge Clinical Impression: COVID-19 Patient Disposition: Home, Self-Care Instructions: COVID-19 (Coronavirus Disease 2019) (ED) Additional Instructions: Today you tested positive for COVID-19.? You tested negative for RSV, influenza. Your chest x-ray does not show signs of pneumonia. Take Ibuprofen or Tylenol as needed for fevers or body aches.? Quarantine for 5 days and ensure you wear a mask. After 5 days you should wear a mask for 5 days after that.? Practice social distancing and good hand hygiene. Drink plenty of fluids. Follow-up with your primary care provider this week. Return to the emergency department with new or worsening symptoms. In case of emergency call 911 You can purchase a pulse oximeter from your local pharmacy or grocery store, and monitor your oxygen saturation if it goes below 94% you should return to the emergency department for further evaluation. Emilysalon Nneka have been sent to your pharmacy for you to take as needed for cough. Naproxen has been sent to your pharmacy for you to take as needed for right arm pain. You need to follow-up with a primary care provider regarding your pain. A referral has been provided to you. Call them to make an appointment. Prescriptions: New benzonatate 100 mg capsule 100 mg PO BID PRN (Reason: cough) Qty: 20 0RF naproxen 500 mg tablet 500 mg PO Q8-12H PRN (Reason: pain (scale score 1-3)) Qty: 20 0RF No Action benzonatate 100 mg capsule 100 mg PO TID PRN (Reason: cough) Qty: 30 0RF prednisone 20 mg tablet 40 mg PO DAILY Qty: 10 0RF naproxen [Naprosyn] 500 mg tablet 500 mg PO BID PRN (Reason: pain) Qty: 20 0RF lisinopril 10 mg tablet 10 mg PO DAILY Qty: 30 0RF fluticasone propionate [Flonase Allergy Relief] 50 mcg/actuation spray,suspension 2 spray intranasal DAILY Qty: 16 0RF Rx Instructions: administer into each nostril cefuroxime axetil 250 mg tablet 250 mg PO BID 7 Days Qty: 14 0RF codeine-guaifenesin 10-100 mg/5 mL liquid 10 ml PO Q4-6H PRN (Reason: cough) Qty: 118 0RF cefuroxime axetil 250 mg tablet 250 mg PO BID 5 Days Qty: 10 0RF tramadol 50 mg tablet 50 mg PO Q6H PRN (Reason: pain) Qty: 20 0RF prednisone 20 mg tablet 40 mg PO DAILY 5 Days Qty: 10 0RF benzonatate 100 mg capsule 100 mg PO TID PRN (Reason: cough) Qty: 14 0RF cefuroxime axetil 250 mg tablet 250 mg PO BID 7 Days Qty: 14 0RF benzonatate 100 mg capsule 100 mg PO Q6H PRN (Reason: cough) Qty: 20 0RF hydrocodone-homatropine [Hycodan] 5-1.5 mg/5 mL (5 mL) syrup 5 ml PO Q4-6H PRN (Reason: cough) Qty: 100 0RF Rx Instructions: Partial Fill upon patient request. azithromycin 250 mg tablet See Rx Instructions .ROUTE .COMPLEX Qty: 6 0RF Rx Instructions: take 500 mg today (day 1), then 250 mg for 4 days (days 2-5) prednisone 20 mg tablet 40 mg PO DAILY 5 Days Qty: 10 0RF benzonatate 100 mg capsule 100 mg PO TID PRN (Reason: cough) Qty: 14 0RF ibuprofen 600 mg tablet 600 mg PO Q6H PRN (Reason: pain) Qty: 30 0RF Referrals: [facility] – [place] [facility] [Provider Group] [facility] – [place] [facility] [Provider Group] Interventions: ED Discharge Assessment Last Done: 12/01/23 11:28 Discharge Date/Time: 12/01/23 11:31 Print Language: Liberian
[2023-12-01] MEDS: Ketorolac Tromethamine 30 MG/ML VIAL IM (09:35)
[2023-12-01 10:13] LABS: Influenza A PCR NEGATIVE (Negative); Influenza B PCR NEGATIVE (Negative); Resp Syncy Virus RNA Qual PCR NEGATIVE (Negative); SARS COV2 PCR INHOUSE POSITIVE (Negative)
[2023-12-01 11:28] VITALS: BP 123/75; PULSE 74; RESP 20; TEMP 36.4; O2SAT 94
== END 2023-12-01 11:31 | disposition home or self-care (01) ==
PROVIDERS: Physician Assistant Medical; Emergency Provider Emergency Medicine
DX: U07.1 COVID-19 (principal); R05.9 Cough, unspecified
CPT/HCPCS: 0241U; 71046; 99283; J1885

== ENCOUNTER 2024-02-09 08:32 | Emergency (ER) | payer MEDICAID, OTHER, SELFPAY ==
--- NOTE | ~2024-02-09 | CT_ITS ---
EXAMINATION: CT ABDOMEN PELVIS WITHOUT IV CONTRAST CLINICAL INFORMATION: flank pain, urinary symptoms, r/o colic COMPARISON: No prior CT available for comparison. TECHNIQUE: Multidetector volumetric imaging was performed from the superior aspect of the liver through the pubic symphysis 100 mL of Omnipaque 350 injected Sagittal and coronal reformatted images were obtained on the technologist's workstation. This CT examination was performed using dose optimization techniques as appropriate, variously including the following: *Automated exposure control *Adjustment of mA and/or kV according to patient size (this includes techniques or standardized protocols for targeted exams where dose is matched to indication/reason for exam; i.e. extremities or head) *Use of iterative reconstruction technique DLP: 536 mGy-cm FINDINGS: LOWER THORAX: Included lung bases are clear. HEPATOBILIARY: Diffusely hypodense liver suggesting hepatic steatosis. GALLBLADDER: Gallbladder unremarkable. SPLEEN: Spleen is normal in size. PANCREAS: No focal mass or ductal dilatation. STOMACH AND GASTROINTESTINAL TRACT: Stomach is grossly unremarkable. There is no bowel distention or thickening. No CT evidence of appendicitis. ADRENALS: No adrenal nodules. KIDNEYS/URETERS: Simple cyst left kidney 3.4 cm Bosniak class I, these commonly benign, no follow-up imaging recommended. URINARY BLADDER: Urinary bladder not well evaluated decompressed unopacified. PELVIC VISCERA: Calcified uterine mass likely necrotic calcified uterine fibroid otherwise Unremarkable PERITONEUM: No free air or fluid. LYMPH NODES: No lymphadenopathy. VASCULAR:Abdominal aorta normal in size, no aneurysm found. BONES, ABDOMINAL WALL AND SOFT TISSUES: Age-appropriate changes of the spine and skeletal system, no destructive osteolytic or osteosclerotic bone lesion found CT/CT abdomen pelvis wo IV con IMPRESSION: 1. No CT evidence of kidney stone or hydronephrosis. 2. Diffusely hypodense liver suggesting hepatic steatosis. 3. Calcified uterine mass possibly fibroid. This can be assessed by ultrasound if clinically indicated. Electronically signed by: Demetria Ortiz MD 02/09/2024 11:30 AM [facility]
[2024-02-09 08:52] VITALS: BP 147/67; PULSE 88; RESP 16; TEMP 36.6; O2SAT 96; BMI 33.8
--- NOTE | 2024-02-09 09:38 | ED_ITS ---
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 She denies any nausea, vomiting, fevers, constipation, diarrhea, hematuria. She does not get her menses. She has an abdominal surgical history of appendectomy, hernia repair, and 2 C- sections Related Data Previous Rx's ?Medication ?Instructions ?Recorded benzonatate 100 mg capsule 100 mg PO TID PRN cough #30 caps 01/10/22 lisinopril 10 mg tablet 10 mg PO DAILY #30 tabs 01/10/22 naproxen 500 mg tablet (Naprosyn) 500 mg PO BID PRN pain #20 tabs 01/10/22 prednisone 20 mg tablet 40 mg (2 x 20 mg) PO DAILY #10 tabs 01/10/22 cefuroxime axetil 250 mg tablet 250 mg PO BID 7 days #14 tabs 07/07/22 fluticasone propionate 50 2 spray intranasal DAILY #16 grams 07/07/22 mcg/actuation nasal spray,suspension (Flonase Allergy Relief) benzonatate 100 mg capsule 100 mg PO Q6H PRN cough #20 caps 07/27/22 hydrocodone-homatropine 5 mg-1.5 5 ml PO Q4-6H PRN cough #100 mL 07/27/22 mg/5 mL (5 mL) oral syrup (Hycodan) azithromycin 250 mg tablet See Rx Instructions PO .COMPLEX #6 08/26/22 tabs benzonatate 100 mg capsule 100 mg PO TID PRN cough #14 caps 08/26/22 prednisone 20 mg tablet 40 mg (2 x 20 mg) PO DAILY 5 days 08/26/22 #10 tabs codeine 10 mg-guaifenesin 100 mg/5 10 ml PO Q4-6H PRN cough #118 mL 09/16/22 mL oral liquid cefuroxime axetil 250 mg tablet 250 mg PO BID 5 days #10 tabs 09/20/22 tramadol 50 mg tablet 50 mg PO Q6H PRN pain #20 tabs 10/19/22 benzonatate 100 mg capsule 100 mg PO TID PRN cough #14 caps 02/16/23 cefuroxime axetil 250 mg tablet 250 mg PO BID 7 days #14 tabs 02/16/23 prednisone 20 mg tablet 40 mg (2 x 20 mg) PO DAILY 5 days 02/16/23 #10 tabs ibuprofen 600 mg tablet 600 mg PO Q6H PRN pain #30 tabs 05/24/23 benzonatate 100 mg capsule 100 mg PO BID PRN cough #20 caps 12/01/23 naproxen 500 mg tablet 500 mg PO Q8-12H PRN pain (scale 12/01/23 score 1-3) #20 tabs cefuroxime axetil 500 mg tablet 500 mg PO BID #14 tabs 02/09/24 phenazopyridine 200 mg tablet 200 mg PO TID PRN pain 6 doses #6 02/09/24 (Pyridium) tabs Allergies Allergy/AdvReac Type Severity Reaction Status Date / Time No Known Allergies Allergy Verified 02/09/24 08:57 Review of Systems 2 Review of Systems: Yes all other systems are reviewed and are negative Constitutional: Constitutional: Reports no additional constitutional complaints, Denies body ache(s), Denies chills, Denies fever(s), Denies headache(s), Denies night sweats, Denies weakness and Denies weight loss Eyes: Eyes: Reports no additional eye complaints and Denies change in vision ENT: Reports system reviewed and no additional complaints, except as documented, Denies dizziness, Denies headache(s), Denies nasal congestion, Denies nasal discharge and Denies neck pain Cardiovascular: Cardiovascular: Reports no additional cardiovascular complaints, Denies chest pain, Denies leg edema and Denies dyspnea Respiratory: Respiratory: Reports no additional respiratory complaints, Denies cough and Denies dyspnea Gastrointestinal: Gastrointestinal: Reports no additional gastrointestinal complaints, Denies abdominal pain, Denies diarrhea, Denies nausea and Denies vomiting Genitourinary: Genitourinary: Reports no additional female genitourinary complaints, Denies abnormal vaginal bleeding, Denies hematuria, Reports dysuria, Denies pelvic pain, Reports flank pain, Denies urinary incontinence, Denies urinary hesitancy, Denies urinary urgency and Denies vaginal discharge Musculoskeletal: Musculoskeletal: Reports no additional musculoskeletal complaints, Denies back pain, Denies arthralgias, Denies joint swelling, Denies neck pain, Denies numbness and Denies tingling Integumentary/Breasts: Skin/Breast: Reports system reviewed and no additional complaints, except as docu and Denies rash Neurologic: Reports system reviewed and no additional complaints, except as documented, Denies Abnormal speech present, Denies dizziness, Denies headache(s), Denies numbness, Denies tingling and Denies weakness [facility] Past Medical History Attestation statement: The following information was validated with the patient. 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 Advance Directives: No Advance Directives Information Provided: No Physical Exam 2 Vital Signs: Vital Signs: Last Vital Signs Temp 98 F 02/09/24 08:52 Pulse 88 02/09/24 08:52 Resp 16 02/09/24 08:52 BP 147/67 H 02/09/24 08:52 Pulse Ox 96 02/09/24 08:52 O2 Del Method Room Air 02/09/24 08:52 BMI result Body Mass Index 33.8 Const: General: cooperative, healthy appearing, comfortable and no acute distress Orientation/consciousness: patient oriented x3 Limitations: no limitations HEENT: Head: Yes normal to inspection Ears: hearing grossly normal bilaterally General nose exam: Normal external nose present Face and sinus: Yes normal facial exam Mouth: Normal oral and palatal mucosa present Throat: Yes posterior oropharynx normal Eyes: General: appearance normal, both eyes and all related structures P upils: Equal, round and reactive pupils present Neck: Neck: Yes normal visual inspection Chest: Chest palpation & inspection: normal inspection of the chest Resp: Effort & Inspection: normal respiratory effort Auscultation: clear to auscultation bilaterally Cardio: Rate: regular rate Rhythm: regular rhythm Peripheral pulses: P eripheral pulses 2+ throughout GI: Inspection: Yes normal to inspection Palpation (GI): Soft to palpation and nontender Auscultation: normal bowel sounds : General: Yes CVA tenderness (bilateral) Back/Spine/Pelvis: Back: CVA tenderness (bilateral) Thoracic/Lumbar Spine: thoracic and lumbar spine normal to inspection Skin: General skin exam: no rashes or lesions noted Neuro: General: patient oriented x3, no focal motor deficits and normal sensation to monofilament Cranial nerves: Yes Equal, round and reactive pupils present Cognition (Neuro): normal cognition Speech: No Abnormal speech present Gait exam (Neuro): Normal gait present Motor exam (neuro): 5/5 motor strength present throughout Extrem: General: Yes normal to inspection Course Course Course Narrative: CT is unremarkable with the exception of a calcified uterine mass. No evidence of pyelonephritis or renal colic. Labs are unremarkable. UA is consistent with a UTI. Patient non toxic, afebrile, tolerating PO. Will discharge patient home with oral antibiotic. Reviewed worrisome signs and symptoms of when to return to the emergency room. Comfortable plan for discharge home. Reviewed all this with the mind reader. Medical Decision Making Medical Decision Making [facility] Narrative: 63-year-old female here with flank pain and urinary symptoms for 2 weeks with CVA tenderness on exam. No focal abdominal pain. Will obtain labs, UA, CT Differential Diagnosis Differential Diagnoses: The differential diagnosis associated with the presentation includes Renal colic, pyelonephritis, UTI Admission/Observation Consideration of admission/observation: Escalation of care including admission/observation considered see course of care Lab Data [facility] Lab Attestation statement: I reviewed the patient's lab results. 02/09/24 10:12 02/09/24 10:12 Labs: Lab Results 02/09/24 02/09/24 Range/Units 09:35 10:12 WBC 11.1 H (4.8-10.8) X10*3/uL RBC 5.32 (4.20-5.50) X10*6/uL Hgb 14.1 (12.0-16.0) g/dl Hct 43.0 (37.0-47.0) % MCV 80.8 (80.0-98.0) fL MCH 26.5 L (27.0-33.0) pg MCHC 32.8 (31.0-35.0) g/dl RDW 13.9 (11.0-16.0) % Plt Count 251 (160-400) X10*3/uL MPV 10.6 (9.4-12.3) fL Immature Gran % (Auto) 0.5 H (0.0-0.4) % Neut % (Auto) 49.6 (45-73) % Lymph % (Auto) 37.9 (20-40) % [place] % (Auto) 8.3 (2-11) % Eos % (Auto) 3.2 (0-4) % Baso % (Auto) 0.5 (0-2) % Lymph # (Auto) 4.2 (1.2-4.9) X10*3/uL [place] # (Auto) 0.9 (0.1-1.2) X10*3/uL Eos # (Auto) 0.4 (0.0-0.4) X10*3/uL Baso # (Auto) 0.1 (0.0-0.2) X10*3/uL Abs Immat Gran (auto) 0.05 H (0.00-0.03) X10*3/uL Absolute Neuts (auto) 5.5 (2.0-8.3) x10*3/uL Absolute Nucleated RBC 0.000 (0.0-0.012) X10*3/uL Nucleated RBC % (auto) 0.0 (0.0-0.2) /100WBC Smear Tech's Comments VERIFIED Sodium 140 (135-145) mmol/L Potassium 4.5 (3.3-5.1) mmol/L Chloride 104 (96-108) mmol/L Carbon Dioxide 24 (22-29) mmol/L Anion Gap 17 (12-20) BUN 12 (9-16) mg/dL Creatinine 0.76 (0.5-1.4) mg/dL Estim Creat Clear Calc 70.1 Estimated GFR > 60 Random Glucose 163 H (60-115) mg/dL Calcium 10.1 (8.4-10.2) mg/dL Urine Color Dark Yellow Urine Appearance Cloudy Urine pH 5.5 (5.0-9.0) Ur Specific [place] 1.025 (1.005-1.025) Urine Protein 30 (1+) H (Neg-Trace) mg/dL Urine Glucose (UA) Negative (Negative) mg/dL Urine Ketones Trace (Negative) mg/dL Urine Blood Small (1+) H (Negative) Urine Nitrite Negative (Negative) Ur Leukocyte Esterase Large (3+) H (Negative) Urine RBC 6-10 H (0-2) /HPF Urine WBC >50 H (0-5) /HPF Ur Squamous Epith Cells 3-5 (0-2) /HPF Urine Bacteria None Seen (None Seen) Hyaline Casts 0-2 (0-2) /LPF Independent Interpretation I performed an independent interpretation of an: CT Scan Interpretation: I independently reviewed the CT scan agree with the radiology report Radiology Impression Discussion of test interpretation with radiology: I have reviewed the radiologist's reading. Radiologist Impression: [address] [address] [address] Scan Report Signed Patient: Patrica Jefferson MR#: [id number] : 1960 Acct:[id number] Age/Sex: 63 / F ADM Date: 02/09/24 Loc: .ED Attending Dr: Ordering Physician: Mar Siddiqi NP Date of Service: 02/09/24 Procedure(s): CT abdomen pelvis wo IV con Accession Number(s): [id number] cc: Physician,None ; Mar Siddiqi NP~ EXAMINATION: CT ABDOMEN PELVIS WITHOUT IV CONTRAST CLINICAL INFORMATION: flank pain, urinary symptoms, r/o colic COMPARISON: No prior CT available for comparison. TECHNIQUE: Multidetector volumetric imaging was performed from the superior aspect of the liver through the pubic symphysis 100 mL of Omnipaque 350 injected Sagittal and coronal reformatted images were obtained on the technologist's workstation. This CT examination was performed using dose optimization techniques as appropriate, variously including the following: *Automated exposure control *Adjustment of mA and/or kV according to patient size (this includes techniques or standardized protocols for targeted exams where dose is matched to indication/reason for exam; i.e. extremities or head) *Use of iterative reconstruction technique DLP: 536 mGy-cm FINDINGS: LOWER THORAX: Included lung bases are clear. HEPATOBILIARY: Diffusely hypodense liver suggesting hepatic steatosis. GALLBLADDER: Gallbladder unremarkable. SPLEEN: Spleen is normal in size. PANCREAS: No focal mass or ductal dilatation. STOMACH AND GASTROINTESTINAL TRACT: Stomach is grossly unremarkable. There is no bowel distention or thickening. No CT evidence of appendicitis. ADRENALS: No adrenal nodules. KIDNEYS/URETERS: Simple cyst left kidney 3.4 cm Bosniak class I, these commonly benign, no follow-up imaging recommended. URINARY BLADDER: Urinary bladder not well evaluated decompressed unopacified. PELVIC VISCERA: Calcified uterine mass likely necrotic calcified uterine fibroid otherwise Unremarkable PERITONEUM: No free air or fluid. LYMPH NODES: No lymphadenopathy. VASCULAR:Abdominal aorta normal in size, no aneurysm found. BONES, ABDOMINAL WALL AND SOFT TISSUES: Age-appropriate changes of the spine and skeletal system, no destructive osteolytic or osteosclerotic bone lesion found CT/CT abdomen pelvis wo IV con IMPRESSION: 1. No CT evidence of kidney stone or hydronephrosis. 2. Diffusely hypodense liver suggesting hepatic steatosis. 3. Calcified uterine mass possibly fibroid. This can be assessed by ultrasound if clinically indicated. Electronically signed by: Demetria Ortiz MD 02/09/2024 11:30 AM [facility] Independent Historian Clinical information obtained from an independent historian. History obtained from or confirmed by: Spouse Discharge Plan Discharge Clinical Impression: Urinary tract infection Patient Disposition: Home, Self-Care Instructions: Urinary Tract Infection in Women (DC) Additional Instructions: Increase fluids at home Return for vomiting, fever, high back pain Follow-up with your primary care doctor for any continued symptoms Your CT scan shows a possible uterine fibroid. Follow-up outpatient with your PCP to have an ultrasound Prescriptions: New cefuroxime axetil 500 mg tablet 500 mg PO BID Qty: 14 0RF phenazopyridine [Pyridium] 200 mg tablet 200 mg PO TID PRN (Reason: pain) Qty: 6 0RF No Action benzonatate 100 mg capsule 100 mg PO TID PRN (Reason: cough) Qty: 30 0RF prednisone 20 mg tablet 40 mg PO DAILY Qty: 10 0RF naproxen [Naprosyn] 500 mg tablet 500 mg PO BID PRN (Reason: pain) Qty: 20 0RF lisinopril 10 mg tablet 10 mg PO DAILY Qty: 30 0RF fluticasone propionate [Flonase Allergy Relief] 50 mcg/actuation spray,suspension 2 spray intranasal DAILY Qty: 16 0RF Rx Instructions: administer into each nostril cefuroxime axetil 250 mg tablet 250 mg PO BID 7 Days Qty: 14 0RF codeine-guaifenesin 10-100 mg/5 mL liquid 10 ml PO Q4-6H PRN (Reason: cough) Qty: 118 0RF cefuroxime axetil 250 mg tablet 250 mg PO BID 5 Days Qty: 10 0RF tramadol 50 mg tablet 50 mg PO Q6H PRN (Reason: pain) Qty: 20 0RF prednisone 20 mg tablet 40 mg PO DAILY 5 Days Qty: 10 0RF benzonatate 100 mg capsule 100 mg PO TID PRN (Reason: cough) Qty: 14 0RF cefuroxime axetil 250 mg tablet 250 mg PO BID 7 Days Qty: 14 0RF benzonatate 100 mg capsule 100 mg PO BID PRN (Reason: cough) Qty: 20 0RF naproxen 500 mg tablet 500 mg PO Q8-12H PRN (Reason: pain (scale score 1-3)) Qty: 20 0RF benzonatate 100 mg capsule 100 mg PO Q6H PRN (Reason: cough) Qty: 20 0RF hydrocodone-homatropine [Hycodan] 5-1.5 mg/5 mL (5 mL) syrup 5 ml PO Q4-6H PRN (Reason: cough) Qty: 100 0RF Rx Instructions: Partial Fill upon patient request. azithromycin 250 mg tablet See Rx Instructions .ROUTE .COMPLEX Qty: 6 0RF Rx Instructions: take 500 mg today (day 1), then 250 mg for 4 days (days 2-5) prednisone 20 mg tablet 40 mg PO DAILY 5 Days Qty: 10 0RF benzonatate 100 mg capsule 100 mg PO TID PRN (Reason: cough) Qty: 14 0RF ibuprofen 600 mg tablet 600 mg PO Q6H PRN (Reason: pain) Qty: 30 0RF Referrals: Physician,None [Primary Care Provider] - 1 week Print Language: French
[2024-02-09 09:52] LABS: Appearance Urine Cloudy; Color Urine Dark Yellow; Glucose Urine UA Negative (Negative); Leukocyte Esterase Urine Large (3+) (Negative); Nitrite Urine Negative (Negative); PH 5.5 (5.0-9.0); Specific Gravity - Urine 1.025 (1.005-1.025); UMIC TRIGGER UACC YES; Urine Blood Small (1+) (Negative); Urine Ketones Trace mg/dL (Negative); Urine Protein 30 (1+) mg/dL (Neg-Trace)
[2024-02-09 09:57] LABS: Bacteria Urine None Seen (None Seen); Hyaline Casts Urine 0-2 /LPF (0-2); UACC Culture Trigger YES; WBC Urine >50 /HPF (0-5)
[2024-02-09 10:29] LABS: Basophils Absolute Auto 0.1 X10*3/uL (0.0-0.2); Basophils Percent Auto 0.5 % (0-2); Eosinophils Absolute Auto 0.4 X10*3/uL (0.0-0.4); Eosinophils Percent Auto 3.2 % (0-4); Hemoglobin 14.1 g/dl (12.0-16.0); Imm Gran Abs Auto 0.05 X10*3/uL (0.00-0.03); Imm Gran Pct Auto 0.5 % (0.0-0.4); Lymphocytes Absolute Auto 4.2 X10*3/uL (1.2-4.9); Lymphocytes Percent Auto 37.9 % (20-40); MANUAL DIFF FLAG SCAN; Mean Corpuscular HGB Conc 32.8 g/dl (31.0-35.0); Mean Corpuscular Hemoglobin 26.5 pg (27.0-33.0); Mean Corpuscular Volume 80.8 fL (80.0-98.0); Mean Platelet Volume 10.6 fL (9.4-12.3); Monocytes Absolute Auto 0.9 X10*3/uL (0.1-1.2); Monocytes Percent Auto 8.3 % (2-11); Neutrophils Absolute Auto 5.5 x10*3/uL (2.0-8.3); Neutrophils Percent Auto 49.6 % (45-73); PLT CLUMP 1; Red Blood Count 5.32 X10*6/uL (4.20-5.50); Red Cell Distribution Width 13.9 % (11.0-16.0); SCAN SMEAR FLAG 1
[2024-02-09 10:30] LABS: White Blood Count 11.1 X10*3/uL (4.8-10.8)
[2024-02-09 10:34] LABS: Anion Gap 17 (12-20); Blood Urea Nitrogen 12 mg/dL (9-16); Calcium 10.1 mg/dL (8.4-10.2); Carbon Dioxide 24 mmol/L (22-29); Chloride 104 mmol/L (96-108); Creatinine Clr Calc Pharmacy 70.1; Estimated Glomerular Filt Rate > 60; Glucose Random 163 mg/dL (60-115); Potassium 4.5 mmol/L (3.3-5.1); Sodium 140 mmol/L (135-145)
[2024-02-09 10:51] LABS: Platelet Count 251 X10*3/uL (160-400)
[2024-02-09 10:52] LABS: SLIDE REVIEW VERIFIED
[2024-02-09 12:21] VITALS: BP 147/67; PULSE 88; RESP 16; TEMP 36.6; O2SAT 96
== END 2024-02-09 12:21 | disposition home or self-care (01) ==
PROVIDERS: Nurse Practitioner Family; Emergency Provider Emergency Medicine
DX: N39.0 Urinary tract infection, site not specified (principal); B96.20 Unspecified Escherichia coli [E. coli] as the cause of diseases classified elsewhere; R10.9 Unspecified abdominal pain
CPT/HCPCS: 36415; 74176; 80048; 81001; 85025; 87086; 87088; 87186; 99283; 99284

== ENCOUNTER 2024-08-07 08:45 | Emergency (ER) | payer OTHER, SELFPAY ==
--- NOTE | ~2024-08-07 | US_ITS ---
EXAMINATION: US ABDOMEN LIMITED CLINICAL INFORMATION: Elevated LFTs. COMPARISON: None available. TECHNIQUE: Real-time ultrasound imaging of the gallbladder and bile ducts only as per ordering provider. FINDINGS: GALLBLADDER: The gallbladder is physiologically distended without evidence of stones, sludge, polyps, wall thickening or pericholecystic fluid. Negative sonographic Doll sign. COMMON BILE DUCT: Normal in caliber measuring 0.4 cm in diameter. FREE FLUID: None. US/US abdomen limited IMPRESSION: Normal gallbladder and bile ducts. Electronically signed by: Francisco Herrera MD 08/07/2024 11:41 AM EDT
--- NOTE | ~2024-08-07 | CT_ITS ---
EXAMINATION: CT ABDOMEN AND PELVIS WITHOUT CONTRAST CLINICAL INFORMATION: Right flank pain COMPARISON: February 04, 2024. TECHNIQUE: Multidetector volumetric imaging was performed from the superior aspect of the liver through the pubic symphysis. Sagittal and coronal reformatted images were obtained on the technologist's workstation. This CT examination was performed using dose optimization techniques as appropriate, variously including the following: *Automated exposure control *Adjustment of mA and/or kV according to patient size (this includes techniques or standardized protocols for targeted exams where dose is matched to indication/reason for exam; i.e. extremities or head) *Use of iterative reconstruction technique DLP: 510 mGy centimeter. FINDINGS: Inadequate evaluation of the intra-abdominal organs and vascular structures due to lack of IV contrast. LUNG BASES: No acute airspace disease. LIVER, GALLBLADDER, AND BILIARY TREE: Liver measures 18 cm. Decreased attenuation. There is a subtle nodular surface. No intrahepatic biliary ductal dilatation. Fluid-filled without pericholecystic fluid collection or gallbladder wall thickening. No extrahepatic biliary ductal dilatation. PANCREAS: No peripancreatic fluid collection. No main pancreatic ductal dilatation. SPLEEN: 8 cm. ADRENAL GLANDS: No nodular lesions. KIDNEYS AND URETERS: No hydronephrosis. No nephrolithiasis. 3.5 cm exophytic fluid density in the upper pole left kidney. BLADDER: Fluid-filled nearly collapsed. GASTROINTESTINAL TRACT: Hiatal hernia, small size. Scattered diverticula in the large intestine with a few in the hepatic colonic flexure. Abundant stool. No intestinal obstruction pattern. No pneumatosis intestinalis. No ascites. No pneumoperitoneum. I do not see the appendix, though no edema pattern in the mesocecum. 2 cm gas and fluid-filled diverticulum, medial wall second portion of the duodenum. ABDOMINAL WALL: Diastases abdominal rectus muscles with protrusion of the intra-abdominal organs. Probable prior laparotomy incision. LYMPH NODES: Nonenlarged. VASCULAR: No aneurysm, abdominal aorta. Calcified plaques in the abdominal aorta wall the origin of the right main renal artery and the iliac arteries. PELVIC VISCERA: Punctate calcifications in the uterus with likely nodular components. OSSEOUS STRUCTURES: Multilevel thoracolumbar spondylosis without acute fracture or gross listhesis. Sclerosis and the sacroiliac joints. No acute fracture or bony calvarium. Degenerative changes in the symphysis pubis. No acute fracture or dislocation in the hips. CT/CT abdomen pelvis wo IV con IMPRESSION: Hepatomegaly and steatosis. 3.5 cm exophytic cyst left kidney. No hydronephrosis or nephrolithiasis. Duodenum diverticula. Colonic diverticular disease, hepatic flexure. Diastases abdominal rectus muscles. Fleischner guidelines were followed. Electronically signed by: Florencio Taylor MD 08/07/2024 10:45 AM EDT
[2024-08-07 08:48] VITALS: BP 147/84; PULSE 90; RESP 18; TEMP 37.1; O2SAT 94; BMI 37.4
--- NOTE | 2024-08-07 10:03 | PC.NURSE ---
pt is alert and oriented, skin appropriate for ethnicity, respirations even and unlabored, pt reports right mid/flank area pain that radiates to the front, denies vomiting, some intermitted nausea, does reports frequent urination but no pain or burning with urination also states chronic constipation but worse the last couple of days, abd soft and non-tender
[2024-08-07 10:16] LABS: MANUAL DIFF FLAG NO
--- NOTE | 2024-08-07 10:25 | ED.GENADULT ---
HPI - General Adult General Chief complaint: Back Pain/Injury Stated complaint: UTI? 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 Patient states that she has a history of back pain however states that she noticed over the last 3 days she has had right-sided flank pain, which has been constant in nature. She denies any fevers or chills. She does endorse slight nausea. Reports urinary frequency and urgency, denies dysuria or hematuria. No history of kidney stones in the past. She also reports that she has had some constipation over the last several days which is normal for her. No chest pain, shortness of breath, abdominal pain. Denies taking any medications at home to treat her current symptoms. No recent injury, heavy lifting or falls. No other complaints or concerns at this time. MD complaint: Right flank pain Onset (ago): day(s) Location: back Radiation: non-radiation Severity: moderate Quality: aching Pain Consistency: constant Relieving factors: none Exacerbating factors: none Associated symptoms: nausea/vomiting Related Data Previous Rx's ?Medication ?Instructions ?Recorded benzonatate 100 mg capsule 100 mg PO TID PRN cough #30 caps 01/10/22 lisinopril 10 mg tablet 10 mg PO DAILY #30 tabs 01/10/22 naproxen 500 mg tablet (Naprosyn) 500 mg PO BID PRN pain #20 tabs 01/10/22 prednisone 20 mg tablet 40 mg (2 x 20 mg) PO DAILY #10 tabs 01/10/22 cefuroxime axetil 250 mg tablet 250 mg PO BID 7 days #14 tabs 07/07/22 fluticasone propionate 50 2 spray intranasal DAILY #16 grams 07/07/22 mcg/actuation nasal spray,suspension (Flonase Allergy Relief) benzonatate 100 mg capsule 100 mg PO Q6H PRN cough #20 caps 07/27/22 hydrocodone-homatropine 5 mg-1.5 5 ml PO Q4-6H PRN cough #100 mL 07/27/22 mg/5 mL (5 mL) oral solution (Hycodan) azithromycin 250 mg tablet See Rx Instructions PO .COMPLEX #6 08/26/22 tabs benzonatate 100 mg capsule 100 mg PO TID PRN cough #14 caps 08/26/22 prednisone 20 mg tablet 40 mg (2 x 20 mg) PO DAILY 5 days 08/26/22 #10 tabs codeine 10 mg-guaifenesin 100 mg/5 10 ml PO Q4-6H PRN cough #118 mL 09/16/22 mL oral liquid cefuroxime axetil 250 mg tablet 250 mg PO BID 5 days #10 tabs 09/20/22 tramadol 50 mg tablet 50 mg PO Q6H PRN pain #20 tabs 10/19/22 benzonatate 100 mg capsule 100 mg PO TID PRN cough #14 caps 02/16/23 cefuroxime axetil 250 mg tablet 250 mg PO BID 7 days #14 tabs 02/16/23 prednisone 20 mg tablet 40 mg (2 x 20 mg) PO DAILY 5 days 02/16/23 #10 tabs ibuprofen 600 mg tablet 600 mg PO Q6H PRN pain #30 tabs 05/24/23 benzonatate 100 mg capsule 100 mg PO BID PRN cough #20 caps 12/01/23 naproxen 500 mg tablet 500 mg PO Q8-12H PRN pain (scale 12/01/23 score 1-3) #20 tabs cefuroxime axetil 500 mg tablet 500 mg PO BID #14 tabs 02/09/24 phenazopyridine 200 mg tablet 200 mg PO TID PRN pain 6 doses #6 02/09/24 (Pyridium) tabs cefpodoxime 200 mg tablet 200 mg PO BID 10 days #20 tabs 08/07/24 Allergies Allergy/AdvReac Type Severity Reaction Status Date / Time No Known Allergies Allergy Verified 08/07/24 08:51 Review of Systems Review of Systems: Yes all other systems are reviewed and are negative Constitutional: Constitutional: Reports as per [facility] Social History Social History Alcohol intake: never 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 Physical Exam ED Vital Signs: Vital Signs - 24 hr 08/07/24 08:48 08/07/24 10:31 08/07/24 13:24 Temperature 98.7 F Pulse Rate 90 91 91 Respiratory Rate 18 18 18 Blood Pressure 147/84 H 161/80 H 161/80 H Pulse Oximetry 94 95 95 Oxygen Delivery Method Room Air Room Air Room Air 08/07/24 13:25 08/07/24 13:31 Temperature 98.5 F 98.5 F Pulse Rate 91 91 Respiratory Rate 18 18 Blood Pressure 161/80 H 161/80 H Pulse Oximetry 95 95 Oxygen Delivery Method Room Air Room Air BMI result Body Mass Index 37.4 Const General: cooperative, comfortable and no acute distress Orientation/consciousness: patient oriented x3 Limitations: no limitations HENMT Head: Yes normal to inspection, Yes normocephalic and Yes atraumatic Ears: hearing grossly normal bilaterally General nose exam: Normal external nose present Face and sinus: Yes normal facial exam Mouth: Normal oral and palatal mucosa present, oropharynx normal and moist mucous membranes Throat: Yes posterior oropharynx normal Eyes General: appearance normal, both eyes and all related structures Eyelids: Yes eyelids normal Conjunctivae: conjunctivae normal Sclerae: sclerae normal Pupils: Equal, round and reactive pupils present EOM: EOMs intact bilaterally Neck Neck: Yes normal visual inspection, Yes full ROM and Yes no lymphadenopathy Lymphatic: no lymphadenopathy noted Chest Chest palpation & inspection: normal inspection of the chest Resp Effort & Inspection: normal respiratory effort and able to speak in complete sentences Auscultation: clear to auscultation bilaterally, no crackles, no rales, no rhonchi and no wheezes Cardio Rate: regular rate Rhythm: regular rhythm Heart sounds: S1 normal heart sound present and S2 normal heart sound present GI Other: abdomen is soft, nontender, nondistended Inspection: Yes normal to inspection Back/Spine/Pelvis Other: R sided CVA tenderness Skin General skin exam: no rashes or lesions noted Trauma: no lacerations or abrasions Wounds: no wounds Neuro General: patient oriented x3 and moves all extremities Cranial nerves: Yes Equal, round and reactive pupils present Extrem General: Yes normal to inspection Right upper extremity: normal to inspection Left upper extremity: normal to inspection Right lower extremity: normal to inspection Left lower extremity: normal to inspection Medical Decision Making Medical Decision Making MDM Narrative: this is a 63-year-old Uzbek-speaking female, with history of hypertension, who presents emergency department complaints of right flank pain for the last 3 days, with associated urinary frequency and urgency. On arrival patient is well-appearing under no acute distress. Vital signs reveal she is slightly hypertensive at 147/84, all other vital signs within normal limits. patient with right-sided CVA tenderness. Abdomen is soft, nontender. Differential diagnoses include renal colic, UTI, pyelonephritis, Nephrolithiasis, musculoskeletal pain. We will obtain labs, UA, and CT abdomen and pelvis to rule out any acute process. Course: No leukocytosis, stable H&H, chemistry revealing slight hyperglycemia at 183, and AST head ALT elevated 80 forward 131, alk phos elevated at 142. This appears to be increased from her previous visits. Given this finding, will obtain ultrasound to rule out any acute pathology, Although patient does not have a positive Doll's sign, abdomen is soft, with no profound right upper quadrant tenderness however this may be referred pain therefore ultrasound is indicated. Urine with small leuk esterases. Given right CVA tenderness, will treat as possible pyelonephritis, Although musculoskeletal may also be the source. Ultrasound unremarkable. Discussed these findings with patient. Given strict return precautions. Also advised to follow-up with PCP in regards to elevated liver transaminases. She understands and agrees with plan. Also discussed incidental findings of the CT scan with patient. Patient stable for discharge. Differential Diagnosis Differential Diagnoses: The differential diagnosis associated with the presentation includes See above Admission/Observation Consideration of admission/observation: Escalation of care including admission/observation considered Lab Data [facility] Lab Attestation statement: I reviewed the patient's lab results. See MDM and course 08/07/24 10:09 08/07/24 10:09 Labs: Lab Results 08/07/24 08/07/24 Range/Units 10:09 10:14 WBC 10.5 (4.8-10.8) X10*3/uL RBC 5.01 (4.20-5.50) X10*6/uL Hgb 13.2 (12.0-16.0) g/dl Hct 40.5 (37.0-47.0) % MCV 80.8 (80.0-98.0) fL MCH 26.3 L (27.0-33.0) pg MCHC 32.6 (31.0-35.0) g/dl RDW 13.8 (11.0-16.0) % Plt Count 261 (160-400) X10*3/uL MPV 10.5 (9.4-12.3) fL Immature Gran % (Auto) 0.6 H (0.0-0.4) % Neut % (Auto) 55.0 (45-73) % Lymph % (Auto) 33.2 (20-40) % Nolan % (Auto) 8.2 (2-11) % Eos % (Auto) 2.4 (0-4) % Baso % (Auto) 0.6 (0-2) % Lymph # (Auto) 3.5 (1.2-4.9) X10*3/uL Nolan # (Auto) 0.9 (0.1-1.2) X10*3/uL Eos # (Auto) 0.3 (0.0-0.4) X10*3/uL Baso # (Auto) 0.1 (0.0-0.2) X10*3/uL Abs Immat Gran (auto) 0.06 H (0.00-0.03) X10*3/uL Absolute Neuts (auto) 5.8 (2.0-8.3) x10*3/uL Absolute Nucleated RBC 0.000 (0.0-0.012) X10*3/uL Nucleated RBC % (auto) 0.0 (0.0-0.2) /100WBC Sodium 139 (135-145) mmol/L Potassium 3.9 (3.3-5.1) mmol/L Chloride 103 (96-108) mmol/L Carbon Dioxide 27 (22-29) mmol/L Anion Gap 13 (12-20) BUN 11 (9-16) mg/dL Creatinine 0.65 (0.5-1.4) mg/dL Estim Creat Clear Calc 76.2 Estimated GFR > 60 Random Glucose 183 H (60-115) mg/dL Calcium 9.8 (8.4-10.2) mg/dL Magnesium 2.1 (1.6-2.6) mg/dL Total Bilirubin 0.3 (0.0-1.0) mg/dL Direct Bilirubin 0.1 (0.0-0.5) mg/dL AST 84 H (5-31) U/L ALT 131 H (0-31) U/L Alkaline Phosphatase 142 H (39-117) U/L Total Protein 8.0 (6.5-8.0) g/dL Albumin 4.3 (3.5-5.0) g/dL Lipase 30 (8-78) U/L Urine Color Yellow Urine Appearance Clear Urine pH 6.5 (5.0-9.0) Ur Specific [place] >= 1.030 H (1.005-1.025) Urine Protein Negative (Neg-Trace) mg/dL Urine Glucose (UA) Negative (Negative) mg/dL Urine Ketones Trace (Negative) mg/dL Urine Blood Negative (Negative) Urine Nitrite Negative (Negative) Ur Leukocyte Esterase Trace H (Negative) Urine RBC 0-2 (0-2) /HPF Urine WBC 0-5 (0-5) /HPF Ur Squamous Epith Cells 0-2 (0-2) /HPF Urine Bacteria None Seen (None Seen) Hyaline Casts 0-2 (0-2) /LPF Radiology Impression Discussion of test interpretation with radiology: I have reviewed the radiologist's reading. Radiologist Impression: EXAMINATION: US ABDOMEN LIMITED CLINICAL INFORMATION: Elevated LFTs. COMPARISON: None available. TECHNIQUE: Real-time ultrasound imaging of the gallbladder and bile ducts only as per ordering provider. FINDINGS: GALLBLADDER: The gallbladder is physiologically distended without evidence of stones, sludge, polyps, wall thickening or pericholecystic fluid. Negative sonographic Doll sign. COMMON BILE DUCT: Normal in caliber measuring 0.4 cm in diameter. FREE FLUID: None. US/US abdomen limited IMPRESSION: Normal gallbladder and bile ducts. Electronically signed by: Francisco Herrera MD 08/07/2024 11:41 AM EDT Dictated By: Francisco Herrera MD External Record Review External record reviewed: Inpatient record, Office record, Outpatient record, Prior outpatient labs, Prior outpatient radiology, Primary care record and Outside ED record Discharge Plan Discharge Clinical Impression: Rt flank pain Patient Disposition: Home, Self-Care Instructions: Flank Pain (ED) Additional Instructions: You were seen in the emergency department due to right-sided flank pain. Your urine has trace leuk esterases, which can be associated with a urinary tract infection. Given this, we are starting you on an antibiotic. Please take full course even if your symptoms improve. There is a possibility that this may be musculoskeletal in etiology therefore taking ibuprofen and or Tylenol as needed for pain, resting, gentle stretching, heat or ice can also help with your symptoms. Your liver enzymes were slightly elevated, please follow-up with your primary care physician regarding this finding as you may need repeat labs. If any new or worsening symptoms occur including but not limited to worsening pain, severe shortness of breath, chest pain, high fevers, chills, please seek emergent care. Prescriptions: New cefpodoxime 200 mg tablet 200 mg PO BID 10 Days Qty: 20 0RF Rx Instructions: must administer with a meal/food No Action benzonatate 100 mg capsule 100 mg PO TID PRN (Reason: cough) Qty: 30 0RF prednisone 20 mg tablet 40 mg PO DAILY Qty: 10 0RF naproxen [Naprosyn] 500 mg tablet 500 mg PO BID PRN (Reason: pain) Qty: 20 0RF lisinopril 10 mg tablet 10 mg PO DAILY Qty: 30 0RF fluticasone propionate [Flonase Allergy Relief] 50 mcg/actuation spray,suspension 2 spray intranasal DAILY Qty: 16 0RF Rx Instructions: administer into each nostril cefuroxime axetil 250 mg tablet 250 mg PO BID 7 Days Qty: 14 0RF codeine-guaifenesin 10-100 mg/5 mL liquid 10 ml PO Q4-6H PRN (Reason: cough) Qty: 118 0RF cefuroxime axetil 250 mg tablet 250 mg PO BID 5 Days Qty: 10 0RF tramadol 50 mg tablet 50 mg PO Q6H PRN (Reason: pain) Qty: 20 0RF prednisone 20 mg tablet 40 mg PO DAILY 5 Days Qty: 10 0RF benzonatate 100 mg capsule 100 mg PO TID PRN (Reason: cough) Qty: 14 0RF cefuroxime axetil 250 mg tablet 250 mg PO BID 7 Days Qty: 14 0RF benzonatate 100 mg capsule 100 mg PO BID PRN (Reason: cough) Qty: 20 0RF naproxen 500 mg tablet 500 mg PO Q8-12H PRN (Reason: pain (scale score 1-3)) Qty: 20 0RF cefuroxime axetil 500 mg tablet 500 mg PO BID Qty: 14 0RF phenazopyridine [Pyridium] 200 mg tablet 200 mg PO TID PRN (Reason: pain) Qty: 6 0RF benzonatate 100 mg capsule 100 mg PO Q6H PRN (Reason: cough) Qty: 20 0RF hydrocodone-homatropine [Hycodan] 5-1.5 mg/5 mL (5 mL) syrup 5 ml PO Q4-6H PRN (Reason: cough) Qty: 100 0RF Rx Instructions: Partial Fill upon patient request. azithromycin 250 mg tablet See Rx Instructions .ROUTE .COMPLEX Qty: 6 0RF Rx Instructions: take 500 mg today (day 1), then 250 mg for 4 days (days 2-5) prednisone 20 mg tablet 40 mg PO DAILY 5 Days Qty: 10 0RF benzonatate 100 mg capsule 100 mg PO TID PRN (Reason: cough) Qty: 14 0RF ibuprofen 600 mg tablet 600 mg PO Q6H PRN (Reason: pain) Qty: 30 0RF Interventions: ED Discharge Assessment Last Done: 08/07/24 13:31 Discharge Date/Time: 08/07/24 13:33 Print Language: Uzbek
[2024-08-07 10:31] VITALS: BP 161/80; PULSE 91; RESP 18; O2SAT 95
[2024-08-07 10:32] LABS: Appearance Urine Clear; Color Urine Yellow; Glucose Urine UA Negative (Negative); Leukocyte Esterase Urine Trace (Negative); Nitrite Urine Negative (Negative); PH 6.5 (5.0-9.0); Specific Gravity - Urine >= 1.030 (1.005-1.025); UMIC TRIGGER UACC YES; Urine Blood Negative (Negative); Urine Ketones Trace mg/dL (Negative); Urine Protein Negative (Neg-Trace)
[2024-08-07 10:33] LABS: Basophils Absolute Auto 0.1 X10*3/uL (0.0-0.2); Basophils Percent Auto 0.6 % (0-2); Eosinophils Absolute Auto 0.3 X10*3/uL (0.0-0.4); Eosinophils Percent Auto 2.4 % (0-4); Hematocrit 40.5 % (37.0-47.0); Hemoglobin 13.2 g/dl (12.0-16.0); Imm Gran Abs Auto 0.06 X10*3/uL (0.00-0.03); Imm Gran Pct Auto 0.6 % (0.0-0.4); Lymphocytes Absolute Auto 3.5 X10*3/uL (1.2-4.9); Lymphocytes Percent Auto 33.2 % (20-40); Mean Corpuscular HGB Conc 32.6 g/dl (31.0-35.0); Mean Corpuscular Hemoglobin 26.3 pg (27.0-33.0); Mean Corpuscular Volume 80.8 fL (80.0-98.0); Mean Platelet Volume 10.5 fL (9.4-12.3); Monocytes Absolute Auto 0.9 X10*3/uL (0.1-1.2); Monocytes Percent Auto 8.2 % (2-11); Neutrophils Absolute Auto 5.8 x10*3/uL (2.0-8.3); Platelet Count 261 X10*3/uL (160-400); Red Blood Count 5.01 X10*6/uL (4.20-5.50); Red Cell Distribution Width 13.8 % (11.0-16.0); White Blood Count 10.5 X10*3/uL (4.8-10.8)
[2024-08-07 10:35] LABS: Bacteria Urine None Seen (None Seen); Hyaline Casts Urine 0-2 /LPF (0-2); RBC Urine 0-2 /HPF (0-2); Squamous Epithelial Cell Urine 0-2 /HPF (0-2); WBC Urine 0-5 /HPF (0-5)
[2024-08-07 10:41] LABS: Alanine Aminotransferase 131 U/L (0-31); Albumin Level 4.3 g/dL (3.5-5.0); Alkaline Phosphatase 142 U/L (39-117); Anion Gap 13 (12-20); Aspartate Amino Transferase 84 U/L (5-31); Bilirubin Direct 0.1 mg/dL (0.0-0.5); Bilirubin Total 0.3 mg/dL (0.0-1.0); Blood Urea Nitrogen 11 mg/dL (9-16); Calcium 9.8 mg/dL (8.4-10.2); Carbon Dioxide 27 mmol/L (22-29); Chloride 103 mmol/L (96-108); Creatinine Clr Calc Pharmacy 76.2; Estimated Glomerular Filt Rate > 60; Glucose Random 183 mg/dL (60-115); Lipase 30 U/L (8-78); Magnesium 2.1 mg/dL (1.6-2.6); Potassium 3.9 mmol/L (3.3-5.1); Sodium 139 mmol/L (135-145)
--- NOTE | 2024-08-07 11:07 | PC.NURSE ---
Report received. Taken over care at this time.
[2024-08-07 13:24] VITALS: BP 161/80; PULSE 91; RESP 18; O2SAT 95
[2024-08-07 13:25] VITALS: BP 161/80; PULSE 91; RESP 18; TEMP 36.9; O2SAT 95
[2024-08-07 13:31] VITALS: BP 161/80; PULSE 91; RESP 18; TEMP 36.9; O2SAT 95
== END 2024-08-07 13:33 | disposition home or self-care (01) ==
PROVIDERS: Physician Assistant Medical; Emergency Provider Emergency Medicine Emergency Medical Services
DX: R10.9 Unspecified abdominal pain (principal); R11.2 Nausea with vomiting, unspecified
CPT/HCPCS: 36415; 74176; 76705; 80048; 80076; 81001; 83690; 83735; 85025; 99284

== ENCOUNTER → 2024-08-07 09:51 | Outpatient (BNV) | payer OTHER, SELFPAY | PROVIDERS: Emergency Provider Emergency Medicine Emergency Medical Services; Visit Provider Radiology Diagnostic Radiology | DX: K82.1 Hydrops of gallbladder (principal); R16.0 Hepatomegaly, not elsewhere classified; K76.0 Fatty (change of) liver, not elsewhere classified; N28.1 Cyst of kidney, acquired; K57.30 Diverticulosis of large intestine without perforation or abscess without bleeding; M62.08 Separation of muscle (nontraumatic), other site | CPT/HCPCS: 74176; 76705 ==

== ENCOUNTER 2024-09-03 10:11 | Outpatient (AMB) | payer OTHER, SELFPAY ==
[2024-09-03 10:13] VITALS: BP 136/90; PULSE 67; O2SAT 97; BMI 38.0
--- NOTE | 2024-09-03 10:13 | MHC.PC.OV ---
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: Yes Accompanied by: Daughter Allergies No Known Allergies Allergy (Verified 09/03/24 10:57) Medication List - Last Reconciled 09/03/24 by Radha Pineda PA-C azithromycin take 500 mg today (day 1), then 250 mg for 4 days (days 2-5) codeine-guaifenesin 10-100 mg/5 mL 10 mL PO Q4-6H PRN fluticasone propionate 50 mcg/actuation (Flonase Allergy Relief) 2 sprays intranasal DAILY hydrocodone-homatropine 5-1.5 mg/5 mL (5 mL) (Hycodan) 5 mL PO Q4-6H PRN ibuprofen 600 mg PO Q6H PRN lisinopril 10 mg PO DAILY naproxen (Naprosyn) 500 mg PO BID PRN phenazopyridine (Pyridium) 200 mg PO TID PRN 6 doses prednisone 40 mg (2 x 20 mg) PO DAILY 5 days tramadol 50 mg PO Q6H PRN Tobacco use date assessed: 09/03/24 Fall risk assessment: No Falls in past year Last assessed Fall Risk: 09/03/24 Dental Screening Dental Screen Date: 09/03/24 Did you have a dental visit in the last 12 months?: No Did you have a dental problem in the last 6 months where you did not have access to dental care?: No Was dental information given to patient?: No HPI establish care HPI Details 64 year old female coming to the office for the first time. Past medical history of hypertension. Patient was seen in [facility] 08/07/2024 for right-sided flank pain treated for urinary tract infection and discharged home. Patient had blood work completed 08/07/2024 while in the hospital elevated blood sugar and elevated LFTs. professor of genetics Aureliano [id number] used for the duration of this visit. Presenting with chronic cough, essential hypertension, and concerns regarding fatty liver. The cough is tied to a history of asthma from years prior, with previous treatment including inhalers and pills. She presents with sporadic adherence to hypertension medication, facing intermittent migraines potentially linked to high blood pressure episodes. A past diagnosis of fatty liver via ultrasound showed a cyst in the left kidney, which led to no follow-up. The patient notes frequent migraines, using ibuprofen and coffee for relief. She reports occasional gastroesophageal symptoms and experiences nausea linked to nighttime meals. She was previously on Omeprazole but has been out of this medication. [facility] Medical History section wound seroma, COVID-19 Surgical History H/O hernia repair Hx of appendectomy H/O section Family History Mother No problems noted. Father No problems noted. Son No problems noted. Daughter No problems noted. 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 1. Little interest or pleasure in doing things: not at all 2. Feeling down, depressed, or hopeless: not at all 3. Trouble falling or staying asleep, or sleeping too much: not at all 4. Feeling tired or having little energy: not at all 5. Poor appetite or overeating: not at all 6. Feeling bad about yourself - or that you are a failure or have let yourself or your family down: not at all 7. Trouble concentrating on things, such as reading the newspaper or watching television: not at all 8. Moving or speaking so slowly that other people could have noticed. Or the opposite - being so fidgety or restless that you have been moving around a lot more than usual: not at all 9. Thoughts that you would be better off or of hurting yourself in some way: not at all Total score: 0 Depression Screening Interpretation: Negative Depression Screening Done: Yes Source: Developed by Drs. Kenny Pace, Yolette Garcia, Chau Cooper and colleagues, with an educational ana from [employer]. Thrive Questionnaire Date Thrive assessed: 09/03/24 I am a: Patient What is your living situation today?: I have a steady place to live Within the past 12 months, did the food you bought not last and you didn't have the money to get more?: Never true Within the past 12 months, did you worry whether your food would run out before you got money to buy more?: Never true Do you have trouble paying for medicines?: No Do you have trouble getting transportation to medical appointments?: No Do you have trouble paying your heating and electricity bill?: No Do you have trouble taking care of your child, family member or friend?: No Do you have trouble with day-to-day activities such as bathing, preparing meals, shopping, managing finances, etc.?: No Are you currently unemployed and looking for a job?: No Are you interested in more education?: No THRIVE Score: 0 AUDIT C Alcohol Use Questionnaire (AUDIT-C) 1. How often do you have a drink containing alcohol?: Never Total Score: 0 REGINE-7 AMB Questionnaire REGINE-7 Date REGINE - 7 assessed: 09/03/24 Feeling nervous, anxious, or on edge: 1 = Several days Not being able to stop or control worryin = Several days Worrying too much about different things: 2 = More than half the days Trouble relaxin = Not at all Being so restless that it is hard to sit still: 1 = Several days Becoming easily annoyed or irritable: 2 = More than half the days Feeling afraid as if something awful might happen: 1 = Several days Total REGINE-7 score (0-4 normal; 5-9 mild; 10-14 moderate; 15-21 severe): 8 Source: Developed by Drs. Kenny Pace, Yolette Garcia, Chau Cooper and colleagues, with an educational ana from [employer]. REGINE-7 Assessment Billing REGINE-7 Assessment Tool: REGINE-7 Assessment 69657 Review of Systems Const Denies body aches, Denies chills, Denies fever(s), Reports headache(s) and Denies poor appetite Eyes Reports no additional complaints ENT Denies dysphagia, Denies dizziness, Reports headache(s) and Denies odynophagia Card Denies chest pain, Denies lightheadedness and Denies dyspnea Resp Denies cough and Denies dyspnea GI Denies abdominal pain, Denies constipation, Denies dysphagia, Reports dyspepsia, Reports heartburn, Denies diarrhea, Reports nausea (AM only ), Denies odynophagia and Denies vomiting Reports no additional complaints Musc Reports no additional complaints and Denies abnormal gait Skin/Breast Reports system reviewed and no additional complaints, except as documented Neuro Denies abnormal gait, Denies dizziness and Reports headache(s) Psych Reports no additional complaints Physical exam (Primary Care) Vital Signs: Last Vital Signs Pulse 67 09/03/24 10:13 BP 138/84 09/03/24 11:21 Pulse Ox 97 09/03/24 10:13 Oxygen Delivery Method Room Air 09/03/24 10:13 BMI result Body Mass Index 38.0 Tobacco/Smoking Status: Tobacco use Status Tobacco use date assessed 09/03/24 09/03/24 10:31 Patient Tobacco Use Status Never used Tobacco 09/03/24 10:35 Tobacco use type Cigarette 09/03/24 10:35 e-Cigarette/Vaping Use Never Used 09/03/24 10:35 PHQ-9: PHQ-9 Score PHQ-9: Total score 0 09/03/24 10:31 Depression Screening Interpretation: Negative Thrive Assessment: Date of Thrive Assessment Date Thrive assessed 09/03/24 09/03/24 10:31 Const General: cooperative, healthy appearing, comfortable and no acute distress Orientation/consciousness: patient oriented x3 [facility] Head: Yes normocephalic Ears: hearing grossly normal bilaterally General nose exam: Normal external nose present Eyes General: appearance normal, both eyes and all related structures Conjunctivae: conjunctivae normal Neck Neck: Yes full ROM and Yes no lymphadenopathy Resp Effort & Inspection: normal respiratory effort Auscultation: clear to auscultation bilaterally, no crackles, no rales, no rhonchi and no wheezes Cardio Rate: regular rate Rhythm: regular rhythm Skin General skin exam: no rashes or lesions noted Neuro General: patient oriented x3 Gait exam (Neuro): Normal gait present Extrem General: Yes normal to inspection, Yes full ROM and No edema Psych Affect: normal affect Attitude: cooperative Insight: Good insight present (Psych) Judgement: Good judgement present (Psych) Coding Level of Care Code New Pt Level 4 (20530) Diagnoses Hypertension I10 Elevated blood sugar R73.9 Asthma J45.909 Screening for hypercholesterolemia Z13. Fatty liver K76.0 Headache R51.9 GERD (gastroesophageal reflux disease) K21.9 Obesity (BMI 30-39.9) E66.9 Additional Codes REGINE-7 Assessment Billing - REGINE-7 Assessment Tool: REGINE-7 Assessment 25890 ([id number]) Assessment & Plan Assessment & Plan (1) Hypertension: Code(s): I10 - Essential (primary) hypertension Category: Medical Plan: Continue on current blood pressure medication. Avoid salt intake and encourage healthy diet and regular exercise. Inconsistently taker her medications. Given the cough would like to avoid Lisinopril at this time and start patient on Atenolol daily as she was using this when she was in [place]. (2) Elevated blood sugar: Code(s): R73.9 - Hyperglycemia, unspecified Category: Medical Plan: Decrease the amount of carbohydrates such as pasta, bread, rice, and potatoes and limit the amount of sweets. Although fruits are generally healthy they should be eaten in moderation as they are still high in sugar. Ordered for blood work. (3) Asthma: Code(s): J45.909 - Unspecified asthma, uncomplicated Category: Medical Plan: Asthma currently controlled on present medications. Continue on albuterol prn.? Avoid triggers such as allergies. Ordered for PFTs for further evaluation. Patient has been out of the albuterol inhaler which was refilled today. (4) Screening for hypercholesterolemia: Code(s): Z13.220 - Encounter for screening for lipoid disorders Category: Medical Plan: blood work ordered (5) Fatty liver: Comment: 07/2024 Code(s): K76.0 - Fatty (change of) liver, not elsewhere classified Category: Medical Plan: Healthy diet and regular exercise is encouraged. Referral was placed to quality assurance engineer at patient request. (6) Headache: Code(s): R51.9 - Headache, unspecified Category: Medical Plan: Concern the headaches may be related to dehydration and blood pressure. Advised patient to increase water intake and take Atenolol consistently. Keep log of headaches and bring this to next visit. Reviewed red flag symptoms and when to present for re-evaluation. (7) GERD (gastroesophageal reflux disease): Code(s): K21.9 - Gastro-esophageal reflux disease without esophagitis Category: Medical Plan: Avoid trigger foods such as citrus, tomato products, soda, caffeine, spicy foods and other foods that may be irritating to your stomach. Avoid laying flat 3-4 hours after eating and elevate the head of the bed 30 degrees to prevent acid from moving into the esophagus. Restarted on omeprazole (8) Obesity (BMI 30-39.9): Code(s): E66.9 - Obesity, unspecified Category: Medical Plan: Healthy diet and regular exercise is encouraged. Referral was placed to quality assurance engineer today. Plan Atenolol will be prescribed for hypertension, avoiding Lisinopril to reduce cough likelihood. An inhaler and pulmonary function test are prescribed for suspected asthma-related chronic cough. I will prescribe Omeprazole for GERD-related symptoms. Dietary intervention for fatty liver via a quality assurance engineer referral is planned. Migraine management will focus on stable blood pressure control, and we will reconvene in 6 weeks to evaluate medicine compliance and results of screenings. This note was constructed using voice recognition software. While every effort has been made to ensure accuracy and kapok and cotton machine operator, still areas may have been included sometimes these areas may affect the content or meeting of the given symptoms. Total time spent caring for the patient today was 30 minutes. This includes time spent before the visit reviewing the chart, time spent during the visit, and time spent after the visit and documentation. Patient was informed and verbally consented to the use of an ambient scribe for clinic note documentation during this visit. Orders: Orders Complete Blood Count Auto Diff 09/03/24 I10 - Essential (primary) hypertension, Z00.00 - Encounter for general adult medical examination without abnormal findings Vitamin B12 and Folate 09/03/24 I10 - Essential (primary) hypertension, Z13.21 - Encounter for screening for nutritional disorder Free T4 (Free Thyroxine) 09/03/24 I10 - Essential (primary) hypertension, Z00.00 - Encounter for general adult medical examination without abnormal findings Lipid Panel 09/03/24 Z13.220 - Encounter for screening for lipoid disorders Hemoglobin A1c 09/03/24 E11.65 - Type 2 diabetes mellitus with hyperglycemia, R73.9 - Hyperglycemia, unspecified Comprehensive Met. Panel 09/03/24 I10 - Essential (primary) hypertension, Z00.00 - Encounter for general adult medical examination without abnormal findings TSH reflex Free T4 09/03/24 I10 - Essential (primary) hypertension, Z00.00 - Encounter for general adult medical examination without abnormal findings Vitamin D 25-OH Total 09/03/24 I10 - Essential (primary) hypertension, Z00.00 - Encounter for general adult medical examination without abnormal findings PFT pulmonary function test 09/03/24 J45.909 - Unspecified asthma, uncomplicated Referrals Optometry Referral Z00.00 - Encounter for general adult medical examination without abnormal findings Full Decator Operator Nutrition Referral K76.0 - Fatty (change of) liver, not elsewhere classified, R73.9 - Hyperglycemia, unspecified Medications: New albuterol sulfate 90 mcg/actuation 1 inh inhalation QID PRN 8.5 grams 0RF shortness of breath or wheezing J45.909 - Unspecified asthma, uncomplicated atenolol 25 mg PO DAILY 90 tabs 0RF omeprazole 20 mg PO DAILY 90 caps 0RF Discontinued lisinopril Discontinued Reason: Patient no longer taking 10 mg PO DAILY 30 tabs 0RF hydrocodone-homatropine 5-1.5 mg/5 mL (5 mL) (Hycodan) Partial Fill upon patient request. Discontinued Reason: Patient no longer taking 5 mL PO Q4-6H PRN 100 mL 0RF cough azithromycin Discontinued Reason: Patient no longer taking take 500 mg today (day 1), then 250 mg for 4 days (days 2-5) 6 tabs 0RF tramadol Discontinued Reason: Patient Completed Course 50 mg PO Q6H PRN 20 tabs 0RF pain phenazopyridine (Pyridium) Discontinued Reason: Patient no longer taking 200 mg PO TID PRN 6 tabs 0RF pain codeine-guaifenesin 10-100 mg/5 mL Discontinued Reason: Patient no longer taking 10 mL PO Q4-6H PRN 118 mL 0RF cough ibuprofen Discontinued Reason: Patient Completed Course 600 mg PO Q6H PRN 30 tabs 0RF pain
[2024-09-03 11:21] VITALS: BP 138/84
== END 2024-09-03 11:32 | disposition home or self-care (01) ==
LOC: HO.HMCH 10:12
DX: I10 Essential (primary) hypertension (principal); R73.9 Hyperglycemia, unspecified; E66.9 Obesity, unspecified; Z68.38 Body mass index [BMI] 38.0-38.9, adult; J45.909 Unspecified asthma, uncomplicated; Z13.220 Encounter for screening for lipoid disorders; K76.0 Fatty (change of) liver, not elsewhere classified; R51.9 Headache, unspecified; K21.9 Gastro-esophageal reflux disease without esophagitis

== ENCOUNTER → 2024-09-03 10:11 | Outpatient (BNVA) | payer OTHER, SELFPAY | DX: I10 Essential (primary) hypertension (principal); J45.909 Unspecified asthma, uncomplicated; N28.1 Cyst of kidney, acquired; G43.909 Migraine, unspecified, not intractable, without status migrainosus; K76.0 Fatty (change of) liver, not elsewhere classified; K21.9 Gastro-esophageal reflux disease without esophagitis; E66.9 Obesity, unspecified; E11.65 Type 2 diabetes mellitus with hyperglycemia; Z68.38 Body mass index [BMI] 38.0-38.9, adult; Z79.899 Other long term (current) drug therapy | CPT/HCPCS: 96127; 99202 ==

== ENCOUNTER 2024-09-10 08:11 | Outpatient (REF) | payer OTHER, SELFPAY ==
[2024-09-10 09:26] LABS: Basophils Percent Auto 0.5 % (0-2); Eosinophils Absolute Auto 0.3 X10*3/uL (0.0-0.4); Hematocrit 42.6 % (37.0-47.0); Hemoglobin 13.5 g/dl (12.0-16.0); Imm Gran Abs Auto 0.03 X10*3/uL (0.00-0.03); Imm Gran Pct Auto 0.3 % (0.0-0.4); Lymphocytes Absolute Auto 3.7 X10*3/uL (1.2-4.9); Lymphocytes Percent Auto 42.2 % (20-40); MANUAL DIFF FLAG SCAN; Mean Corpuscular HGB Conc 31.7 g/dl (31.0-35.0); Mean Corpuscular Hemoglobin 26.2 pg (27.0-33.0); Mean Corpuscular Volume 82.7 fL (80.0-98.0); Monocytes Absolute Auto 0.9 X10*3/uL (0.1-1.2); Monocytes Percent Auto 9.7 % (2-11); Neutrophils Absolute Auto 3.9 x10*3/uL (2.0-8.3); Neutrophils Percent Auto 44.3 % (45-73); PLT CLUMP 1; Red Blood Count 5.15 X10*6/uL (4.20-5.50); Red Cell Distribution Width 13.8 % (11.0-16.0); SCAN SMEAR FLAG 1
[2024-09-10 09:29] LABS: White Blood Count 8.8 X10*3/uL (4.8-10.8)
[2024-09-10 09:44] LABS: Estimated Average Glucose 174 mg/dL; Hemoglobin A1c % 7.7 % (<6.0)
[2024-09-10 09:51] LABS: Alanine Aminotransferase 80 U/L (0-31); Albumin Level 4.2 g/dL (3.5-5.0); Alkaline Phosphatase 103 U/L (39-117); Anion Gap 13 (12-20); Aspartate Amino Transferase 55 U/L (5-31); Bilirubin Total 0.4 mg/dL (0.0-1.0); Blood Urea Nitrogen 16 mg/dL (9-16); Calcium 9.5 mg/dL (8.4-10.2); Carbon Dioxide 25 mmol/L (22-29); Chloride 106 mmol/L (96-108); Cholesterol 207 mg/dL (<200); Estimated Glomerular Filt Rate > 60; Glucose Random 148 mg/dL (60-115); HDL Cholesterol 34 mg/dL (>40); Potassium 4.3 mmol/L (3.3-5.1); Sodium 140 mmol/L (135-145); Total Protein 7.6 g/dL (6.5-8.0)
[2024-09-10 09:57] LABS: Mean Platelet Volume 11.7 fL (9.4-12.3); Platelet Count 240 X10*3/uL (160-400)
[2024-09-10 09:58] LABS: SLIDE REVIEW VERIFIED
[2024-09-10 10:09] LABS: LDL Cholesterol Calculated 142 mg/dL (<100); Triglycerides 159 mg/dL (<150)
[2024-09-10 10:13] LABS: Folate 13.2 ng/mL (> or = 4.0); Free T4 (Free Thyroxine) 0.91 ng/dL (0.71-1.85); TSH reflex Free T4 1.75 uIU/mL (0.32-4.0); Vitamin B12 480 pg/mL (200-900)
== END 2024-09-10 08:12 | disposition home or self-care (01) ==
LOC: HO.LAB 08:11
DX: Z00.00 Encounter for general adult medical examination without abnormal findings (principal); I10 Essential (primary) hypertension; Z13.21 Encounter for screening for nutritional disorder; E11.65 Type 2 diabetes mellitus with hyperglycemia; Z13.220 Encounter for screening for lipoid disorders
CPT/HCPCS: 36415; 80053; 80061; 82306; 82607; 82746; 83036; 84439; 84443; 85025

== ENCOUNTER 2024-09-26 08:15 | Outpatient (AMB) | payer OTHER, SELFPAY ==
--- NOTE | 2024-09-26 08:51 | MHC.PC.OV ---
Vital Signs 09/26/24 08:52 Height 4 ft 7.91 in Weight 168 lb BMI 37.8 BP 120/66 Blood Pressure Location Lt brachial Position Sitting Pulse 68 Pulse Source Pulse Oximeter Temp 97.1 F Temp Source Temporal Artery Scan Pulse Oximetry (%) 98 Oxygen Delivery Method Room Air Intake Visit Reasons: follow up Intake Note: Patient is here to follow up on Migraine, HTN. Legal Records Manager Required: Yes Legal Records Manager Language: Senior Technical Trainer Name: ([id number]) Information Interpreted: non-clinical & clinical Office Worker: Present Accompanied by: Spouse Allergies No Known Allergies Allergy (Verified 09/26/24 08:52) Medication List - Last Reconciled 09/26/24 by Radha Pineda PA-C albuterol sulfate 90 mcg/actuation 1 inh inhalation QID PRN atenolol 25 mg PO DAILY fluticasone propionate 50 mcg/actuation (Flonase Allergy Relief) 2 sprays intranasal DAILY naproxen (Naprosyn) 500 mg PO BID PRN omeprazole 20 mg PO DAILY Tobacco use date assessed: 09/26/24 Fall risk assessment: No Falls in past year Last assessed Fall Risk: 09/26/24 Dental Screening Dental Screen Date: 09/03/24 HPI follow up HPI Details 64-year-old female with past medical history of hypertension, elevated blood sugar, asthma, fatty liver, GERD, obesity last seen 08/2024 coming in for follow up. Presenting with hypertension, diabetes mellitus, and hypercholesterolemia. The patient experiences persistent headaches despite atenolol therapy, with slight improvement noted. Diagnosed with an A1c of 7.7%, the patient reports postprandial drowsiness and has been advised on dietary modifications. Cholesterol level at 142 mg/dL, dietary adjustments recommended to lower intake of red meats and egg yolks. Lab results indicate borderline dehydration; patient drinks two bottles of water daily and experiences nausea with increased intake. [facility] Medical History section wound seroma, COVID-19 Surgical History H/O hernia repair Hx of appendectomy H/O section Family History Mother No problems noted. Father No problems noted. Son No problems noted. Daughter No problems noted. 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 Drugs service: No Current occupational status: unemployed Cognitive needs: No Hearing needs: No Vision needs: No Questionnaire Thrive Questionnaire Date Thrive assessed: 09/26/24 I am a: Patient What is your living situation today?: I have a steady place to live Within the past 12 months, did the food you bought not last and you didn't have the money to get more?: Never true Within the past 12 months, did you worry whether your food would run out before you got money to buy more?: I choose not to answer this question Do you have trouble paying for medicines?: No Do you have trouble getting transportation to medical appointments?: No Do you have trouble paying your heating and electricity bill?: I choose not to answer this question Do you have trouble taking care of your child, family member or friend?: I choose not to answer this question Do you have trouble with day-to-day activities such as bathing, preparing meals, shopping, managing finances, etc.?: No Are you currently unemployed and looking for a job?: I choose not to answer this question Are you interested in more education?: No Please select the resources that you would like help with: None Currently or been in a relationship where the following occur: No concerns reported THRIVE Score: 0 AUDIT C Alcohol Use Questionnaire (AUDIT-C) 1. How often do you have a drink containing alcohol?: Never Total Score: 0 REGINE-7 AMB Questionnaire REGINE-7 Date REGINE - 7 assessed: 09/03/24 Feeling nervous, anxious, or on edge: 0 = Not at all Not being able to stop or control worryin = Not at all Worrying too much about different things: 0 = Not at all Trouble relaxin = Not at all Being so restless that it is hard to sit still: 0 = Not at all Becoming easily annoyed or irritable: 0 = Not at all Feeling afraid as if something awful might happen: 0 = Not at all Total REGINE-7 score (0-4 normal; 5-9 mild; 10-14 moderate; 15-21 severe): 0 Source: Developed by Drs. Kenny Pace, Yolette Garcia, Chau Cooper and colleagues, with an educational ana from [employer]. Review of Systems Const Denies body aches, Denies chills, Denies fever(s), Denies headache(s) and Denies poor appetite Eyes Reports no additional complaints ENT Denies dizziness and Denies headache(s) Card Denies chest pain, Denies edema, Denies lightheadedness and Denies dyspnea Resp Denies cough and Denies dyspnea GI Denies abdominal pain, Denies constipation, Denies diarrhea, Denies nausea and Denies vomiting Reports no additional complaints Musc Reports no additional complaints and Denies abnormal gait Skin/Breast Reports system reviewed and no additional complaints, except as documented Neuro Denies abnormal gait, Denies dizziness and Denies headache(s) Psych Reports no additional complaints Physical exam (Primary Care) Vital Signs: Last Vital Signs Temp 97.1 F 09/26/24 08:52 Pulse 68 09/26/24 08:52 BP 120/66 09/26/24 08:52 Pulse Ox 98 09/26/24 08:52 Oxygen Delivery Method Room Air 09/26/24 08:52 BMI result Body Mass Index 37.8 Tobacco/Smoking Status: Tobacco use Status Tobacco use date assessed 09/26/24 09/26/24 08:54 Patient Tobacco Use Status Never used Tobacco 09/26/24 08:54 Tobacco use type Cigarette 09/26/24 08:54 e-Cigarette/Vaping Use Never Used 09/26/24 08:54 Thrive Assessment: Date of Thrive Assessment Date Thrive assessed 09/26/24 09/26/24 08:54 Currently or been in a relationship where the following occur: No concerns reported Const General: cooperative, healthy appearing, comfortable and no acute distress Orientation/consciousness: patient oriented x3 HENMT Head: Yes normocephalic Ears: hearing grossly normal bilaterally General nose exam: Normal external nose present Eyes General: appearance normal, both eyes and all related structures Conjunctivae: conjunctivae normal Neck Neck: Yes full ROM and Yes no lymphadenopathy Resp Effort & Inspection: normal respiratory effort Auscultation: clear to auscultation bilaterally, no crackles, no rales, no rhonchi and no wheezes Cardio Rate: regular rate Rhythm: regular rhythm Skin General skin exam: no rashes or lesions noted Neuro General: patient oriented x3 Gait exam (Neuro): Normal gait present Extrem General: Yes normal to inspection, Yes full ROM and No edema Psych Affect: normal affect Attitude: cooperative Insight: Good insight present (Psych) Judgement: Good judgement present (Psych) Coding Level of Care Code Est Pt Level 3 (73058) Diagnoses Hypertension I10 Asthma J45.909 Headache R51.9 Obesity (BMI 30-39.9) E66.9 Hypercholesterolemia E78.00 Diabetes mellitus E11.9 Assessment & Plan Assessment & Plan (1) Hypertension: Code(s): I10 - Essential (primary) hypertension Category: Medical Plan: Continue on current blood pressure medication. Avoid salt intake and encourage healthy diet and regular exercise. Blood pressure has imprived with atenolol (2) Asthma: Code(s): J45.909 - Unspecified asthma, uncomplicated Category: Medical Plan: Asthma currently controlled on present medications. Continue on albuterol prn.? Avoid triggers such as allergies. (3) Headache: Code(s): R51.9 - Headache, unspecified Category: Medical Plan: Concern the headaches may be related to dehydration and blood pressure. Advised patient to increase water intake and take Atenolol consistently. Keep log of headaches and bring this to next visit. Reviewed red flag symptoms and when to present for re-evaluation. (4) Obesity (BMI 30-39.9): Code(s): E66.9 - Obesity, unspecified Category: Medical Plan: Healthy diet and regular exercise is encouraged. Referral was placed to electronic organ technician today. (5) Hypercholesterolemia: Code(s): E78.00 - Pure hypercholesterolemia, unspecified Category: Medical Plan: Avoid foods that are high in cholesterol such as red meat, fried foods, eggs and baked goods. Triglyceride goal of less than 150 and LDL goal of less than 100. Plan to start on low-dose atorvastatin 10 mg as LDL is elevated. Repeat labs in 3 months (6) Diabetes mellitus: Code(s): E11.9 - Type 2 diabetes mellitus without complications Category: Medical Plan: Decrease the amount of carbohydrates such as pasta, bread, rice, and potatoes and limit the amount of sweets. Although fruits are generally healthy they should be eaten in moderation as they are still high in sugar. Hemoglobin A1c goal of less than 7%. Most recent A1c 7.7%. Plan to start on metformin twice daily and follow up in 3 months. Plan The patient will continue atenolol for hypertension management, with blood pressure monitoring to ensure continued control. Metformin will be initiated for diabetes management, with dietary modifications to reduce carbohydrate intake and regular monitoring of blood glucose levels. Atorvastatin will be prescribed to manage hypercholesterolemia, with dietary adjustments to reduce cholesterol intake. The patient is advised to increase water intake gradually to address dehydration, with a goal of five to six bottles per day. A referral to a electronic organ technician has been made to assist with dietary management, and follow-up is scheduled in three months with repeat blood work to assess progress. This note was constructed using voice recognition software. While every effort has been made to ensure accuracy and mercerizer, still areas may have been included sometimes these areas may affect the content or meeting of the given symptoms. Total time spent caring for the patient today was 30 minutes. This includes time spent before the visit reviewing the chart, time spent during the visit, and time spent after the visit and documentation. Patient was informed and verbally consented to the use of an ambient scribe for clinic note documentation during this visit. Orders: Orders Lipid Panel 3 Months E78.00 - Pure hypercholesterolemia, unspecified Hemoglobin A1c 3 Months E11.65 - Type 2 diabetes mellitus with hyperglycemia Liver Panel 3 Months R79.89 - Other specified abnormal findings of blood chemistry Hepatitis B,C Profile Today R79.89 - Other specified abnormal findings of blood chemistry Medications: New metformin 500 mg PO BID 60 tabs 2RF atorvastatin (Lipitor) 10 mg PO BEDTIME 90 tabs 0RF
[2024-09-26 08:52] VITALS: BP 120/66; PULSE 68; TEMP 36.2; O2SAT 98; BMI 37.8
== END 2024-09-26 10:06 | disposition home or self-care (01) ==
LOC: HO.HMCH 08:16
DX: I10 Essential (primary) hypertension (principal); J45.909 Unspecified asthma, uncomplicated; E11.9 Type 2 diabetes mellitus without complications; R51.9 Headache, unspecified; E66.9 Obesity, unspecified; E78.00 Pure hypercholesterolemia, unspecified

== ENCOUNTER → 2024-09-26 08:15 | Outpatient (BNVA) | payer OTHER, SELFPAY | DX: I10 Essential (primary) hypertension (principal); G43.909 Migraine, unspecified, not intractable, without status migrainosus; J45.909 Unspecified asthma, uncomplicated; K21.9 Gastro-esophageal reflux disease without esophagitis; E66.9 Obesity, unspecified; E78.00 Pure hypercholesterolemia, unspecified; R79.89 Other specified abnormal findings of blood chemistry; E11.65 Type 2 diabetes mellitus with hyperglycemia; Z68.37 Body mass index [BMI] 37.0-37.9, adult | CPT/HCPCS: 99212 ==

== ENCOUNTER 2024-10-15 15:31 | Emergency (ER) | payer OTHER, SELFPAY ==
--- NOTE | ~2024-10-15 | CT_ITS ---
CLINICAL HISTORY: LLQ Tenderness; R O Divertic CT abdomen and pelvis with contrast Comparison: CT/[place]/SR - CT ABDOMEN PELVIS WO IV CON - 08/07/24 10:24 EDT Findings: Mild bilateral dependent atelectasis. No consolidation or pleural effusion. Gallbladder is unremarkable. No biliary ductal dilatation. Low-attenuation of the liver suggestive of steatosis. The spleen and pancreas are unremarkable. Adrenal glands are normal. 3.6 cm simple left renal upper pole cyst. Enhancement of bilateral kidneys with no hydronephrosis or hydroureter. No perinephric stranding. No bowel obstruction, pneumoperitoneum, or pneumatosis. Small hiatal hernia. Diverticulosis of the hepatic flexure with no evidence of acute diverticulitis. No free fluid or loculated fluid collection. Appendix not identified. No pericecal inflammatory changes. Small uterine calcifications suggestive of fibroids. Urinary bladder mildly distended but otherwise appears unremarkable. Abdominal aorta is normal in size. No acute fracture. Demineralization. Degenerative changes lower thoracic spine. IMPRESSION: 1. No acute findings. 2. Hepatic flexure diverticulosis with no evidence of acute diverticulitis. 3. Additional nonacute findings as described. This document has been electronically signed by: Elena Isaacs MD on 10/15/2024 23:32:36
[2024-10-15 15:40] VITALS: BP 140/70; PULSE 90; RESP 16; TEMP 36.8; O2SAT 95; BMI 33.7
--- NOTE | 2024-10-15 15:45 | ED_ITS ---
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 Patient reports last bowel movement was yesterday. Patient denies associated fever/chills, nausea, vomiting, dysuria, hematuria, hematochezia, melena, or recent trauma or sick contacts. Related Data Previous Rx's ?Medication ?Instructions ?Recorded naproxen 500 mg tablet (Naprosyn) 500 mg PO BID PRN pa in #20 tabs 01/10/22 fluticasone propionate 50 2 spray intranasal DAILY #16 grams 07/07/22 mcg/actuation nasal spray,suspension (Flonase Allergy Relief) omeprazole 20 mg capsule,delayed 20 mg PO DAILY #90 ca ps 09/03/24 release atenolol 25 mg tablet 25 mg PO DAILY #90 tabs 09/01 08/24 atorvastatin 10 mg tablet (Lipitor) 10 mg PO BEDTIME # 90 tabs 09/26/24 metformin 500 mg tablet 500 mg PO BID #60 tabs 09/26 blood sugar diagnostic (FreeStyle #100 ea 09/29/24 Lite Strips) blood-glucose meter (FreeStyle #1 ea 09/29/24 Lite Meter kit) lancets 28 gauge (FreeStyle #100 ea 09/29/24 Lancets) albuterol sulfate 90 mcg/actuation 1 inh inhalation QI D PRN shortness 10/04/24 aerosol inhaler of breath or wheezing #8.5 g demario acetaminophen 500 mg capsule 1,000 mg (2 x 500 mg) PO .q8 PRN 10/16/24 fever or pain #30 caps ibuprofen 600 mg tablet 600 mg PO Q8H PRN fever or p ain 10/16/24 #30 tabs Allergies Allergy/AdvReac Type Severity Reaction Status Date / Time No Known Allergies Allergy Verified 10/15/24 15:42 Review of Systems Review of Systems Yes all other systems are reviewed and are negative PMFSH Past Medical History Medical History section wound seroma, COVID-19 Surgical History H/O hernia repair Hx of appendectomy H/O section Family History Family History Mother No problems noted. Father No problems noted. Son No problems noted. Daughter No problems noted. 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 Advance Directives: No Advance Directives Information Provided: No Do you have a plan to hurt others: No Plan service: No Current occupational status: unemployed Cognitive needs: No Hearing needs: No Vision needs: No Physical Exam ED Vital Signs: Vital Signs - 24 hr 10/15/24 15:40 10/15/24 22:32 Temperature 98.3 F 98.5 F Pulse Rate 90 73 Respiratory Rate 16 Blood Pressure 140/70 H 136/77 Pulse Oximetry 95 96 Oxygen Delivery Method Room Air Room Air BMI result Body Mass Index 33.7 Course Course Course Narrative: This is a Rapid Medical Examination (RME) performed by Stephanie Winter PA-C in triage. Full HPI, ROS, assessment and treatment plan per primary provider in the Main ED. Hx: 64 yo F here w/ L sided abd pain x1 day. last bm yesterday. no n/v. Plan: labs, UA Medical Decision Making Medical Decision Making MDM Narrative: 11:41 PM 10/15/2024 (Stephanie LUONG): The patient is a 64-year-old female presenting to the ED for evaluation of left-sided abdominal pain radiating to the left flank without associated nausea, vomiting, diarrhea, fever, dysuria, hematuria, hematochezia, or melena. The patient in the ED has tenderness of the left lower quadrant and anterior flank, negative rebound, there is equivocal CVA tenderness on the left. Patient's laboratory evaluation shows mild leukocytosis of 11.4, no anemia, electrolyte abnormality, or RONA. Lipase is normal. The patient's LFTs are mildly elevated but unchanged from the patient's baseline. The patient's urinalysis is negative for infection. Patient was sent for CT of the abdomen to evaluate for diverticulitis versus ureterolithiasis. Patient's CT has resulted and shows diverticulosis without evidence of diverticulitis, no evidence of other intra-abdominal pathology, no ureterolithiasis or renal stranding. The patient may be suffering from a musculoskeletal strain of the left flank, we will treat with anti-inflammatories and reassess. 12:44 AM 10/16/2024 (Stephanie LUONG): The patient's symptoms have improved dramatically following Toradol. Patient will be discharged to follow up with PCP. Lab Data MDM Lab Attestation statement: I reviewed the patient's lab results. 10/15/24 15:57 10/15/24 15:57 Labs: Lab Results 10/15/24 10/15/24 Range/Units 15:57 19:31 WBC 11.4 H (4.8-10.8) X10*3/uL RBC 4.87 (4.20-5.50) X10*6/uL Hgb 12.9 (12.0-16.0) g/dl Hct 39.4 (37.0-47.0) % MCV 80.9 (80.0-98.0) fL MCH 26.5 L (27.0-33.0) pg MCHC 32.7 (31.0-35.0) g/dl RDW 13.7 (11.0-16.0) % Plt Count 229 (160-400) X10*3/uL MPV 11.3 (9.4-12.3) fL Immature Gran % (Auto) 0.4 (0.0-0.4) % Neut % (Auto) 59.3 (45-73) % Lymph % (Auto) 30.3 (20-40) % [place] % (Auto) 8.6 (2-11) % Eos % (Auto) 1.0 (0-4) % Baso % (Auto) 0.4 (0-2) % Lymph # (Auto) 3.4 (1.2-4.9) X10*3/uL [place] # (Auto) 1.0 (0.1-1.2) X10*3/uL Eos # (Auto) 0.1 (0.0-0.4) X10*3/uL Baso # (Auto) 0.1 (0.0-0.2) X10*3/uL Abs Immat Gran (auto) 0.05 H (0.00-0.03) X10*3/uL Absolute Neuts (auto) 6.7 (2.0-8.3) x10*3/uL Absolute Nucleated RBC 0.000 (0.0-0.012) X10*3/uL Nucleated RBC % (auto) 0.0 (0.0-0.2) /100WBC Sodium 139 (135-145) mmol/L Potassium 4.4 (3.3-5.1) mmol/L Chloride 106 (96-108) mmol/L Carbon Dioxide 25 (22-29) mmol/L Anion Gap 12 (12-20) BUN 11 (9-16) mg/dL Creatinine 0.74 (0.5-1.4) mg/dL Estim Creat Clear Calc 65.2 Estimated GFR > 60 Random Glucose 89 (60-115) mg/dL Calcium 9.7 (8.4-10.2) mg/dL Magnesium 2.0 (1.6-2.6) mg/dL Total Bilirubin 0.7 (0.0-1.0) mg/dL AST 55 H (5-31) U/L ALT 69 H (0-31) U/L Alkaline Phosphatase 82 (39-117) U/L Total Protein 8.1 H (6.5-8.0) g/dL Albumin 4.6 (3.5-5.0) g/dL Lipase 24 (8-78) U/L Urine Color Yellow Urine Appearance Clear Urine pH 6.0 (5.0-9.0) Ur Specific Mcdonald 1.020 (1.005-1.025) Urine Protein Negative (Neg-Trace) mg/dL Urine Glucose (UA) Negative (Negative) mg/dL Urine Ketones Trace (Negative) mg/dL Urine Blood Negative (Negative) Urine Nitrite Negative (Negative) Ur Leukocyte Esterase Trace H (Negative) Urine RBC 3-5 H (0-2) /HPF Urine WBC 0-5 (0-5) /HPF Ur Squamous Epith Cells 0-2 (0-2) /HPF Urine Bacteria None Seen (None Seen) Hyaline Casts 0-2 (0-2) /LPF Radiology Impression Discussion of test interpretation with radiology: I have reviewed the radiologist's reading. Radiologist Impression: CT abdomen and pelvis with contrast Comparison: CT/[place]/SR - CT ABDOMEN PELVIS WO IV CON - 08/07/24 10:24 EDT Findings: Mild bilateral dependent atelectasis. No consolidation or pleural effusion. Gallbladder is unremarkable. No biliary ductal dilatation. Low-attenuation of the liver suggestive of steatosis. The spleen and pancreas are unremarkable. Adrenal glands are normal. 3.6 cm simple left renal upper pole cyst. Enhancement of bilateral kidneys with no hydronephrosis or hydroureter. No perinephric stranding. No bowel obstruction, pneumoperitoneum, or pneumatosis. Small hiatal hernia. Diverticulosis of the hepatic flexure with no evidence of acute diverticulitis. No free fluid or loculated fluid collection. Appendix not identified. No pericecal inflammatory changes. Small uterine calcifications suggestive of fibroids. Urinary bladder mildly distended but otherwise appears unremarkable. Abdominal aorta is normal in size. No acute fracture. Demineralization. Degenerative changes lower thoracic spine. IMPRESSION: 1. No acute findings. 2. Hepatic flexure diverticulosis with no evidence of acute diverticulitis. 3. Additional nonacute findings as described. This document has been electronically signed by: Elena Isaacs MD on 10/15/2024 23:32:36 Medications Administered Discontinued Medications Generic Name Dose Route Start Last Admin Trade Name Freq PRN Reason Stop Dose Admin Iohexol 85 ml 10/15/24 22:50 10/15/24 22:50 Iohexol 350 Mg/Ml 100 Ml Infus..Btl IV 10/15/24 22:51 85 ml ONCE ONE Administration Ketorolac Tromethamine 15 mg 10/15/24 23:46 10/15/24 23:57 Ketorolac Tromethamine 15 Mg/Ml Vial IVPUSH 10/15/24 23:47 15 mg ONCE ONE Administration Discharge Plan Discharge Clinical Impression: Abdominal muscle strain Qualifiers: Encounter type: initial encounter Qualified Code(s): S39.011A - Strain of muscle, fascia and tendon of abdomen, initial encounter Patient Disposition: Home, Self-Care Instructions: Muscle Strain (ED) Additional Instructions: Thank you for choosing [facility]'s Emergency Department for your care today. Thankfully your laboratory evaluation, urinalysis, and CT today showed no evidence of an acute infectious, obstructive, surgical, or other dangerous cause for your symptoms. There was no evidence of a urinary tract infection, intra- abdominal infection, or kidney stone. At this time there is no evidence of an acute process requiring admission to the hospital or continued ED observation, and it is safe to discharge you home. Given your reassuring workup, your symptoms are most likely a result of a musculoskeletal strain of your abdominal wall. You may take alternating (staggered) doses of ibuprofen 600mg and Tylenol 1000mg every 4 hours as needed for any additional pain. Please stay well hydrated and get plenty of rest. Please follow up with your primary care physician for re-evaluation, additional management of your symptoms, and continued preventative care. If you do not have a primary care physician, please call the [facility] at [phone] to establish a new primary care physician. While waiting to establish your new primary care physician, you can call our Walk[facility]in [facility] at [phone] for non-emergency needs. Please return to the emergency department if you develop a severe or sudden change in your symptoms, a fever over 100.4 that does not improve with Tylenol or Ibuprofen, recurrent vomiting, or any other new or worsening symptoms or concerns. Prescriptions: New ibuprofen 600 mg tablet 600 mg PO Q8H PRN (Reason: fever or pain) Qty: 30 0RF acetaminophen 500 mg capsule 1,000 mg PO .q8 PRN (Reason: fever or pain) Qty: 30 0RF No Action atenolol 25 mg tablet 25 mg PO DAILY Qty: 90 0RF (DME) FreeStyle Lite Strips Strip See Rx Instructions .Route Qty: 100 0RF Rx Instructions: As directed; to check sugars t.i.d. (DME) blood-glucose meter [FreeStyle Lite Meter] Kit See Rx Instructions .Route Qty: 1 0RF Rx Instructions: As directed; to check blood sugars 3 times a day (DME) lancets [FreeStyle Lancets] 28 gauge misc See Rx Instructions .Route Qty: 100 0RF Rx Instructions: As directed; to check blood sugars t.i.d. albuterol sulfate 90 mcg/actuation HFA aerosol inhaler 1 inh inhalation QID PRN (Reason: shortness of breath or wheezing) Qty: 8.5 0RF naproxen [Naprosyn] 500 mg tablet 500 mg PO BID PRN (Reason: pain) Qty: 20 0RF fluticasone propionate [Flonase Allergy Relief] 50 mcg/actuation spray,suspension 2 spray intranasal DAILY Qty: 16 0RF Rx Instructions: administer into each nostril metformin 500 mg tablet 500 mg PO BID Qty: 60 2RF atorvastatin [Lipitor] 10 mg tablet 10 mg PO BEDTIME Qty: 90 0RF omeprazole 20 mg capsule,delayed release(DR/EC) 20 mg PO DAILY Qty: 90 0RF Referrals: Radha Pineda PA-C [Primary Care Provider, Internal Medicine] Clinical Impression: Abdominal muscle strain Print Language: Chinese
[2024-10-15 16:02] LABS: MANUAL DIFF FLAG NO
[2024-10-15 16:07] LABS: Hematocrit 39.4 % (37.0-47.0); Hemoglobin 12.9 g/dl (12.0-16.0); Imm Gran Abs Auto 0.05 X10*3/uL (0.00-0.03); Imm Gran Pct Auto 0.4 % (0.0-0.4); Lymphocytes Absolute Auto 3.4 X10*3/uL (1.2-4.9); Mean Corpuscular HGB Conc 32.7 g/dl (31.0-35.0); Mean Corpuscular Hemoglobin 26.5 pg (27.0-33.0); Mean Corpuscular Volume 80.9 fL (80.0-98.0); NRBC Abs Auto 0.000 X10*3/uL (0.0-0.012); NRBC Pct Auto 0.0 /100WBC (0.0-0.2); Platelet Count 229 X10*3/uL (160-400); Red Blood Count 4.87 X10*6/uL (4.20-5.50); White Blood Count 11.4 X10*3/uL (4.8-10.8)
[2024-10-15 16:23] LABS: Alanine Aminotransferase 69 U/L (0-31); Albumin Level 4.6 g/dL (3.5-5.0); Alkaline Phosphatase 82 U/L (39-117); Anion Gap 12 (12-20); Aspartate Amino Transferase 55 U/L (5-31); Blood Urea Nitrogen 11 mg/dL (9-16); Calcium 9.7 mg/dL (8.4-10.2); Carbon Dioxide 25 mmol/L (22-29); Chloride 106 mmol/L (96-108); Creatinine Clr Calc Pharmacy 65.2; Estimated Glomerular Filt Rate > 60; Lipase 24 U/L (8-78); Magnesium 2.0 mg/dL (1.6-2.6); Potassium 4.4 mmol/L (3.3-5.1); Sodium 139 mmol/L (135-145); Total Protein 8.1 g/dL (6.5-8.0)
[2024-10-15 19:40] LABS: Appearance Urine Clear; Glucose Urine UA Negative (Negative); PH 6.0 (5.0-9.0); Specific Gravity - Urine 1.020 (1.005-1.025); UMIC TRIGGER UACC YES
[2024-10-15 22:32] VITALS: BP 136/77; PULSE 73; TEMP 36.9; O2SAT 96
[2024-10-15] MEDS: iohexoL 350 MG/ML 100 ML INFUS..BTL 85 ML IV (22:50)
[2024-10-16 01:11] VITALS: BP 120/65; PULSE 70; RESP 16; TEMP 36.7; O2SAT 96
[2024-10-16 01:12] VITALS: BP 120/65; PULSE 70; RESP 16; TEMP 36.7; O2SAT 96
== END 2024-10-16 01:13 | disposition home or self-care (01) ==
PROVIDERS: Physician Assistant Medical; Emergency Provider Emergency Medicine
DX: S39.011A Strain of muscle, fascia and tendon of abdomen, initial encounter (principal); R10.2 Pelvic and perineal pain; X58.XXXA Exposure to other specified factors, initial encounter; Y93.9 Activity, unspecified; Y92.9 Unspecified place or not applicable; Y99.8 Other external cause status
CPT/HCPCS: 36415; 74177; 80053; 81001; 83690; 83735; 85025; 96374; 99284; J1885; Q9967

== ENCOUNTER → 2024-10-15 22:27 | Outpatient (BNV) | payer OTHER, SELFPAY | PROVIDERS: Emergency Provider Emergency Medicine; Visit Provider Specialist | DX: K57.30 Diverticulosis of large intestine without perforation or abscess without bleeding (principal) | CPT/HCPCS: 74177 ==

== ENCOUNTER 2024-11-13 12:41 | Outpatient (AMB) | payer OTHER, SELFPAY ==
--- NOTE | 2024-11-13 13:42 | A.OFFVIS_ITS ---
VS Expanded 11/13/24 13:43 11/18/24 10:15 Height 4 ft 10 in 4 ft 10 in Weight 158 lb 11.725 oz 159 lb BMI 33.2 33.2 Intake Visit Reasons: Hyperglycemia, unspecified Allergies No Known Allergies Allergy (Verified 10/15/24 15:42) Nutrition Presentation Details: Pt presents for MNT for elevated blood glucose and fatty liver . Pt was referred by PCP food frequency fruits 2/day veg daily fish : fish 2-3 x/week dairy: 1 % mlk or 2% pastries and similar:daily etoh: denies Physical : 15 minutes 3 x/wk ,started incorporating physical activity Pt has questions regarding fiber rich foods BS Monitoring Most Recent Diabetes Results: Cholesterol, (<200) 207 mg/dL H 09/10/24 HDL Cholesterol, (>40) 34 mg/dL L 09/10/24 Triglycerides, (<150) 159 mg/dL H 09/10/24 Creatinine, (0.5-1.4) 0.74 mg/dL 10/15/24 BUN, (9-16) 11 mg/dL 10/15/24 Sodium, (135-145) 139 mmol/L 10/15/24 Potassium, (3.3-5.1) 4.4 mmol/L 10/15/24 Chloride, (96-108) 106 mmol/L 10/15/24 Carbon Dioxide, (22-29) 25 mmol/L 10/15/24 Calcium, (8.4-10.2) 9.7 mg/dL 10/15/24 AST, (5-31) 55 U/L H 10/15/24 ALT, (0-31) 69 U/L H 10/15/24 Total Protein, (6.5-8.0) 8.1 g/dL H 10/15/24 Albumin, (3.5-5.0) 4.6 g/dL 10/15/24 MOO-[id number]-Fs.Jeor Equation Height: 4 ft 10 in Weight: 159 lb Resting Metabolic Rate: 1165.36 Calculated Activity Level: Sedentary Calories Needed to Maintain Weight: 1398.43 Diagnosis Nutrition problem #1: altered nutrition labs As related to (etiology) #1: diagnosis (elevated FG,michael chol, fatty liver) As evidenced by (sign/symptom) #1: abnormal lab values (elevated FBG, chol,liver enzymes) [facility] Medical History section wound seroma, COVID-19 Surgical History H/O hernia repair Hx of appendectomy H/O section Family History Mother No problems noted. Father No problems noted. Son No problems noted. Daughter No problems noted. 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 Drugs service: No Current occupational status: unemployed Cognitive needs: No Hearing needs: No Vision needs: No Assessment & Plan Assessment & Plan (1) Elevated blood sugar: Code(s): R73.9 - Hyperglycemia, unspecified Category: Medical Plan: Wt: 72 Kg ( 11/24 ) Est kcal needs as per MSJ: 1400 (40% carb, 30% protein/fat) Est fluid needs as per 25-30 ml/d: 2200 Est prot per day as per 1 g/kg bw: 70 Recommend fiber intake : 8-10 g per day and gradually increase to 25-28 g per day for women and 35-38 g for men or as tolerated Recommend sodium intake per day: less than 2300 mg Educated patient on: ( R = reviewed V = verbalizes understanding N/R = needs review N/A = not applicable * Food sources of carbohydrate, adequate serving sizes and its role in various health conditions: R * Differences between complex carbohydrates a simple carbohydrates, role of fiber in diet: R * Lean protein sources of foods: R * Differences between types of fats and role in diet (mono on saturated fat fatty acids, saturated fatty acids, trans fats): R * Food sources of sodium in salt and healthy modifications for heart health in kidney health: R V R/V * Vitamins and minerals: R V N/R * Healthy plate method concept: R * Physical activity: Benefits a precaution: R * Hypoglycemia protocol (rule of 15): R V N/R * Dietary prevention of Hyperglycemia: R Patient Instructions: increase walking to 40minutes 3 times a week follow healthy plate method at dinner 5 time a week ( reducing carb to 45 g or less choosing whole grain foods , fiber rich foods - see list of options Choose fruit as bedtime snack (options iwth less than 20 g carb/fiber keep hydrated by having water with meals/snacks , 7-8 cups water/day Coding Level of Care Code Nutr Indiv Intake (39656) Diagnoses Elevated blood sugar R73.9 Time Spent (min) 30
[2024-11-13 13:43] VITALS: BMI 33.2
[2024-11-18 10:15] VITALS: BMI 33.2
== END 2024-11-13 14:11 | disposition home or self-care (01) ==
LOC: HO.ENCR 12:42
PROVIDERS: Visit Provider Dietitian, Registered
DX: R73.9 Hyperglycemia, unspecified (principal)

== ENCOUNTER → 2024-11-13 12:41 | Outpatient (BNVA) | payer OTHER, SELFPAY | PROVIDERS: Visit Provider Dietitian, Registered | DX: Z71.3 Dietary counseling and surveillance (principal); R73.9 Hyperglycemia, unspecified | CPT/HCPCS: 97802 ==

== ENCOUNTER 2024-12-11 08:35 | Outpatient (REF) | payer OTHER, SELFPAY ==
--- NOTE | 2024-12-11 08:40 | PFT_ITS ---
Indication: Asthma Spirometry FEV1 to FVC 83%; FEV1 1.57 L; FVC 1.88 L. No significant response to bronchodilators noted. Lung Volumes Total lung capacity 83% predicted; residual volume 105% predicted; expiratory reserve volume 16% predicted Diffusion Capacity DLCO 104% predicted Comparisons None Interpretation No obstructive nor restrictive ventilatory defects identified. No significant response to bronchodilators noted. Lung volumes are low normal. The patient has a normal diffusing capacity. If asthma is new differential methacholine challenge may be helpful in assessing for hyperreactive airways. Clinical correlation warranted. MTDD
[2024-12-11 09:18] VITALS: PULSE 75; O2SAT 96
== END 2024-12-11 08:36 | disposition home or self-care (01) ==
LOC: HO.RESP 08:35
DX: J45.909 Unspecified asthma, uncomplicated (principal)
CPT/HCPCS: 94060; 94640; 94727; 94729

== ENCOUNTER → 2024-12-11 08:40 | Outpatient (BNV) | payer OTHER, SELFPAY | PROVIDERS: Visit Provider Hospitalist | DX: J45.909 Unspecified asthma, uncomplicated (principal) | CPT/HCPCS: 94060; 94727; 94729 ==

== ENCOUNTER 2024-12-29 15:03 | Outpatient (AMB) | payer OTHER, SELFPAY ==
--- NOTE | 2024-12-29 15:26 | A.OFFPC_ITS ---
Vital Signs 12/29/24 15:27 Height 4 ft 10 in Weight 155 lb 2 oz BMI 32.4 BP 112/68 Blood Pressure Location Lt brachial Position Sitting Pulse 80 Pulse Source Pulse Oximeter Temp 97.3 F Temp Source Temporal Artery Scan Pulse Oximetry (%) 96 Oxygen Delivery Method Room Air Intake Visit Reasons: f/u DM and HLD Intake Note: Patient is here to follow up on DM, HLD. 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 blood-glucose meter (FreeStyle Lite Meter kit) As directed; to check blood sugars 3 times a day fluticasone propionate 50 mcg/actuation (Flonase Allergy Relief) 2 sprays intranasal DAILY ibuprofen 600 mg PO Q8H PRN lancets (FreeStyle Lancets) As directed; to check blood sugars t.i.d. metformin 500 mg PO BID naproxen (Naprosyn) 500 mg PO BID PRN omeprazole 20 mg PO DAILY Tobacco use date assessed: 12/29/24 Fall risk assessment: No Falls in past year Last assessed Fall Risk: 12/29/24 Dental Screening Dental Screen Date: 09/03/24 HPI f/u DM and HLD HPI Details 64-year-old female with past medical his tory of hypertension, elevated blood sugar, asthma, fatty liver, GERD, obesity last seen 08/2024 coming in for follow up. grain drier Ruthy ([id number]) was used for the duration of this visit. Presenting with tingling and numbness in the hands and feet. Reports intermittent tingling and numbness in hands, occasionally affecting feet, described as needle-like sensations. Symptoms are not constant and affect some fingers more than others, with possible causes including carpal tunnel syndrome and diabetic neuropathy. Diabetes is well-controlled with an A1c of 6.0, improved from 7.7, managed through dietary adjustments. Asthma is stable, with no recent use of albuterol. Occasional headaches are managed with medication and coffee. [facility] Medical History section wound seroma, COVID-19 Surgical History H/O hernia repair Hx of appendectomy H/O section Family History Mother No problems noted. Father No problems noted. Son No problems noted. Daughter No problems noted. 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 Drugs service: No Current occupational status: unemployed Cognitive needs: No Hearing needs: No Vision needs: No Questionnaire Thrive Questionnaire Date Thrive assessed: 09/26/24 I am a: Patient What is your living situation today?: I have a steady place to live Within the past 12 months, did the food you bought not last and you didn't have the money to get more?: Never true Within the past 12 months, did you worry whether your food would run out before you got money to buy more?: I choose not to answer this question Do you have trouble paying for medicines?: No Do you have trouble getting transportation to medical appointments?: No Do you have trouble paying your heating and electricity bill?: I choose not to answer this question Do you have trouble taking care of your child, family member or friend?: I choose not to answer this question Do you have trouble with day-to-day activities such as bathing, preparing meals, shopping, managing finances, etc.?: No Are you currently unemployed and looking for a job?: I choose not to answer this question Are you interested in more education?: No Please select the resources that you would like help with: None Currently or been in a relationship where the following occur: No concerns reported THRIVE Score: 0 REGINE-7 AMB Questionnaire REGINE-7 Date REGINE - 7 assessed: 09/03/24 Source: Developed by Drs. Kenny Pace, Yolette Garcia, Chau Cooper and colleagues, with an educational ana from [employer]. Review of Systems Const Denies body aches, Denies chills, Denies fever(s), Reports headache(s) (Occasional) and Denies poor appetite Eyes Reports no additional complaints ENT Denies dizziness and Reports headache(s) (Occasional) Card Denies chest pain, Denies lightheadedness and Denies dyspnea Resp Denies cough and Denies dyspnea Reports no additional complaints Musc Reports as per HPI and Denies abnormal gait Skin/Breast Reports system reviewed and no additional complaints, except as documented Neuro Reports as per HPI, Denies abnormal gait, Denies dizziness and Reports headache(s) (Occasional) Psych Reports no additional complaints Physical exam (Primary Care) Vital Signs: Last Vital Signs Temp 97.3 F 12/29/24 15:27 Pulse 80 12/29/24 15:27 BP 112/68 12/29/24 15:27 Pulse Ox 96 12/29/24 15:27 Oxygen Delivery Method Room Air 12/29/24 15:27 BMI result Body Mass Index 32.4 Tobacco/Smoking Status: Tobacco use Status Tobacco use date assessed 12/29/24 12/29/24 15:38 Patient Tobacco Use Status Never used Tobacco 12/29/24 15:38 Tobacco use type Cigarette 12/29/24 15:38 e-Cigarette/Vaping Use Never Used 12/29/24 15:38 Thrive Assessment: Date of Thrive Assessment Date Thrive assessed 09/26/24 12/29/24 15:38 Currently or been in a relationship where the following occur: No concerns reported Const General: cooperative, healthy appearing, comfortable and no acute distress Orientation/consciousness: patient oriented x3 HENMT Head: Yes normocephalic Ears: hearing grossly normal bilaterally General nose exam: Normal external nose present Eyes General: appearance normal, both eyes and all related structures Conjunctivae: conjunctivae normal Neck Neck: Yes full ROM and Yes no lymphadenopathy Resp Effort & Inspection: normal respiratory effort Auscultation: clear to auscultation bilaterally, no crackles, no rales, no rhonchi and no wheezes Cardio Rate: regular rate Rhythm: regular rhythm Skin General skin exam: no rashes or lesions noted Neuro Other: Intact strength, sensation and pulses in bilateral upper extremities General: patient oriented x3 Gait exam (Neuro): Normal gait present Extrem General: Yes normal to inspection, Yes full ROM and No edema Psych Affect: normal affect Attitude: cooperative Insight: Good insight present (Psych) Judgement: Good judgement present (Psych) Results AMB Hemoglobin A1c AMB Hemoglobin A1c 6.0 % Last Edit by DIANE Ames on 12/29/24 15:41 Results Reviewed Results Reviewed: Laboratory Last Values Hgb A1c (Clinic) 6.0 % (4.0-6.0) 12/29/24 15:25 Coding Level of Care Code Est Pt Level 3 (75436) Diagnoses Hypertension I10 Asthma J45.909 Obesity (BMI 30-39.9) E66.9 Hypercholesterolemia E78.00 Diabetes mellitus E11.9 Numbness and tingling in both hands R20.0; R20.2 Assessment & Plan Assessment & Plan (1) Hypertension: Code(s): I10 - Essential (primary) hypertension Category: Medical Plan: Continue on current blood pressure medication. Avoid salt intake and encourage healthy diet and regular exercise. Blood pressure has imprived with atenolol (2) Asthma: Code(s): J45.909 - Unspecified asthma, uncomplicated Category: Medical Plan: Asthma currently controlled on present medications. Continue on albuterol prn.? Avoid triggers such as allergies. (3) Obesity (BMI 30-39.9): Code(s): E66.9 - Obesity, unspecified Category: Medical Plan: Healthy diet and regular exercise is encouraged. Referral was placed to train planner today. (4) Hypercholesterolemia: Code(s): E78.00 - Pure hypercholesterolemia, unspecified Category: Medical Plan: Avoid foods that are high in cholesterol such as red meat, fried foods, eggs and baked goods. Triglyceride goal of less than 150 and LDL goal of less than 100. Plan to start on low-dose atorvastatin 10 mg as LDL is elevated. Reminded about labs. (5) Diabetes mellitus: Code(s): E11.9 - Type 2 diabetes mellitus without complications Category: Medical Plan: Decrease the amount of carbohydrates such as pasta, bread, rice, and potatoes and limit the amount of sweets. Although fruits are generally healthy they should be eaten in moderation as they are still high in sugar. Hemoglobin A1c goal of less than 7%. Most recent A1c 6.0% she will continue on Metformin. (6) Numbness and tingling in both hands: Code(s): R20.0 - Anesthesia of skin; R20.2 - Paresthesia of skin Category: Medical Plan: The patient experiences intermittent tingling in some fingers, possibly due to carpal tunnel syndrome. If symptoms persist, a nerve conduction study may be considered, and wrist splints could be used to prevent wrist flexion during sleep. Plan During the visit, we discussed the potential causes of the patient's tingling and numbness, including carpal tunnel syndrome and diabetic neuropathy. I emphasized the importance of maintaining good glycemic control, which the patient has achieved with an A1c of 6.0. We also talked about the possibility of conducting a nerve conduction study if symptoms persist. The patient is advised to continue dietary management and monitor blood glucose levels regularly. We agreed on a follow-up in three months to reassess her condition and blood sugar levels. This note was constructed using voice recognition software. While every effort has been made to ensure accuracy and field service rep, still areas may have been included sometimes these areas may affect the content or meeting of the given symptoms. Total time spent caring for the patient today was 20 minutes. This includes time spent before the visit reviewing the chart, time spent during the visit, and time spent after the visit and documentation. Patient was informed and verbally consented to the use of an ambient scribe for clinic note documentation during this visit. Orders: Orders AMB Hemoglobin A1c Today E11.9 - Type 2 diabetes mellitus without complications, Z13.9 - Encounter for screening, unspecified T Spot TB Today Z00.00 - Encounter for general adult medical examination without abnormal findings, Z11.1 - Encounter for screening for respiratory tuberculosis
[2024-12-29 15:27] VITALS: BP 112/68; PULSE 80; TEMP 36.3; O2SAT 96; BMI 32.4
== END 2024-12-29 16:10 | disposition home or self-care (01) ==
LOC: HO.HMCH 15:04
DX: I10 Essential (primary) hypertension (principal); E11.9 Type 2 diabetes mellitus without complications; J45.909 Unspecified asthma, uncomplicated; Z68.32 Body mass index [BMI] 32.0-32.9, adult; E66.9 Obesity, unspecified; E78.00 Pure hypercholesterolemia, unspecified; R20.0 Anesthesia of skin; R20.2 Paresthesia of skin

== ENCOUNTER → 2024-12-29 15:03 | Outpatient (BNVA) | payer OTHER, SELFPAY | DX: E11.9 Type 2 diabetes mellitus without complications (principal); E78.5 Hyperlipidemia, unspecified; I10 Essential (primary) hypertension; R20.2 Paresthesia of skin; R20.0 Anesthesia of skin; E66.9 Obesity, unspecified; E78.00 Pure hypercholesterolemia, unspecified; Z68.32 Body mass index [BMI] 32.0-32.9, adult | CPT/HCPCS: 83036; 99212 ==

== ENCOUNTER 2024-12-30 08:13 | Outpatient (REF) | payer OTHER, SELFPAY ==
[2024-12-30 09:21] LABS: Alanine Aminotransferase 28 U/L (0-31); Albumin Level 4.5 g/dL (3.5-5.0); Alkaline Phosphatase 107 U/L (39-117); Aspartate Amino Transferase 30 U/L (5-31); Cholesterol 148 mg/dL (<200); HDL Cholesterol 37 mg/dL (>40); Total Protein 7.8 g/dL (6.5-8.0); Triglycerides 74 mg/dL (<150)
[2024-12-30 09:37] LABS: HBS Num1 1.41 mIU/mL (0-7.99); HBc Num1 0.05 S/CO (0.00-0.79); HBsAGNum1 0.48 S/CO (0.00-0.99); Hepatitis B Surface Antigen Negative (Negative); ~HepC Num1 0.08 S/CO (0.00-0.79); ~Hepatitis B Surface Antibody NONREACTIVE (Nonreactive); ~Hepatitis C Antibody Nonreactive (Nonreactive)
[2025-01-02 00:19] LABS: TS Negative Control Passed; TS Panel A 0; TS Panel B 0; TS Positive Control Passed; TSpotTB Negative (Negative)
== END 2024-12-30 08:14 | disposition home or self-care (01) ==
LOC: HO.LAB 08:13
DX: Z00.00 Encounter for general adult medical examination without abnormal findings (principal); Z11.1 Encounter for screening for respiratory tuberculosis; R79.89 Other specified abnormal findings of blood chemistry; E78.00 Pure hypercholesterolemia, unspecified; E11.65 Type 2 diabetes mellitus with hyperglycemia; Z11.59 Encounter for screening for other viral diseases
CPT/HCPCS: 36415; 80061; 80076; 83036; 86481; 86704; 86706; 86803; 87340

== ENCOUNTER 2025-01-07 13:21 | Outpatient (AMB) | payer OTHER, SELFPAY ==
[2025-01-07 13:52] VITALS: BMI 33.0
--- NOTE | 2025-01-07 13:52 | MHC.AMNUTRGE ---
VS Expanded 01/07/25 13:52 Height 4 ft 10 in Weight 158 lb 1.143 oz BMI 33.0 Intake Visit Reasons: Elevated FGB/ Allergies No Known Allergies Allergy (Verified 12/29/24 15:51) Nutrition Presentation Details: Pt presents for MNT for pre-diabetes Pt reports working on reducing on added sugars working on gradual diet modifications admits to keeping sendentary BS Monitoring Most Recent Diabetes Results: Cholesterol, (<200) 148 mg/dL 12/30/24 HDL Cholesterol, (>40) 37 mg/dL L 12/30/24 Triglycerides, (<150) 74 mg/dL 12/30/24 Creatinine, (0.5-1.4) 0.74 mg/dL 10/15/24 BUN, (9-16) 11 mg/dL 10/15/24 Sodium, (135-145) 139 mmol/L 10/15/24 Potassium, (3.3-5.1) 4.4 mmol/L 10/15/24 Chloride, (96-108) 106 mmol/L 10/15/24 Carbon Dioxide, (22-29) 25 mmol/L 10/15/24 Calcium, (8.4-10.2) 9.7 mg/dL 10/15/24 AST, (5-31) 30 U/L 12/30/24 ALT, (0-31) 28 U/L 12/30/24 Total Protein, (6.5-8.0) 7.8 g/dL 12/30/24 Albumin, (3.5-5.0) 4.5 g/dL 12/30/24 [facility] Medical History section wound seroma, COVID-19 Surgical History H/O hernia repair Hx of appendectomy H/O section Family History Mother No problems noted. Father No problems noted. Son No problems noted. Daughter No problems noted. 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 Drugs service: No Current occupational status: unemployed Cognitive needs: No Hearing needs: No Vision needs: No Assessment & Plan Assessment & Plan (1) Elevated blood sugar: Code(s): R73.9 - Hyperglycemia, unspecified Category: Medical Plan: Wt: 72 Kg ( 11/24 ), 72 kg(11/24), 01/24 Est kcal needs as per MSJ: 1400 (40% carb, 30% protein/fat) Est fluid needs as per 25-30 ml/d: 2200 Est prot per day as per 1 g/kg bw: 70 Recommend fiber intake : 8-10 g per day and gradually increase to 25-28 g per day for women and 35-38 g for men or as tolerated Recommend sodium intake per day: less than 2300 mg Educated patient on: ( R = reviewed V = verbalizes understanding N/R = needs review N/A = not applicable Food sources of carbohydrate, adequate serving sizes and its role in various health conditions: R Differences between complex carbohydrates a simple carbohydrates, role of fiber in diet: R Lean protein sources of foods: R Differences between types of fats and role in diet (mono on saturated fat fatty acids, saturated fatty acids, trans fats): R Food sources of sodium in salt and healthy modifications for heart health in kidney health: R V R/V Vitamins and minerals: R V N/R Healthy plate method concept: R Physical activity: Benefits a precaution: R Hypoglycemia protocol (rule of 15): R V N/R Dietary prevention of Hyperglycemia: R Patient Instructions: Engage in walking 30 minutes /d Try 2 veg/1 fruit smoothies combination (fruits also have sugars, watch on amount consumed, reduce carbs as snack to less than 20 and as a meal to less than 45 g Coding Level of Care Code Nutr Indiv Subseq (86826) Diagnoses Elevated blood sugar R73.9 Time Spent (min) 30
== END 2025-01-07 14:16 | disposition home or self-care (01) ==
LOC: HO.ENCR 13:22
PROVIDERS: Visit Provider Dietitian, Registered
DX: R73.9 Hyperglycemia, unspecified (principal)

== ENCOUNTER → 2025-01-07 13:21 | Outpatient (BNVA) | payer OTHER, SELFPAY | PROVIDERS: Visit Provider Dietitian, Registered | DX: Z71.3 Dietary counseling and surveillance (principal); R73.9 Hyperglycemia, unspecified | CPT/HCPCS: 97803 ==

== ENCOUNTER 2025-03-18 11:40 | Outpatient (AMB) | payer OTHER, SELFPAY ==
--- NOTE | 2025-03-18 12:15 | A.OFFVIS_ITS ---
VS Expanded 03/18/25 12:16 Height 4 ft 10 in Weight 156 lb 2 oz BMI 32.6 Intake Visit Reasons: Pre DM Allergies No Known Allergies Allergy (Verified 12/29/24 15:51) Nutrition Presentation Details: Pt presents for MNT f/u for IFG Pt reports working on reducing on sugar intake. Has episodes in which she may increase intake of empty calorie foods but not on a daily basis. Patient reports having 3 meals a day and working on choosing higher fiber foods and low-fat protein foods. Patient admits to reducing physical activity related to cold weather. Food frequency Fruits: 0-1 a day Vegetables: Reports getting tired of salads and lately has not been including veggies Fish and 1 time a week Dairy: 2 to 3 times a day Beverages: Water, Crystal Light, juices which she diluted with water BS Monitoring Most Recent Diabetes Results: Cholesterol, (<200) 148 mg/dL 12/30/24 HDL Cholesterol, (>40) 37 mg/dL L 12/30/24 Triglycerides, (<150) 74 mg/dL 12/30/24 Creatinine, (0.5-1.4) 0.74 mg/dL 10/15/24 BUN, (9-16) 11 mg/dL 10/15/24 Sodium, (135-145) 139 mmol/L 10/15/24 Potassium, (3.3-5.1) 4.4 mmol/L 10/15/24 Chloride, (96-108) 106 mmol/L 10/15/24 Carbon Dioxide, (22-29) 25 mmol/L 10/15/24 Calcium, (8.4-10.2) 9.7 mg/dL 10/15/24 AST, (5-31) 30 U/L 12/30/24 ALT, (0-31) 28 U/L 12/30/24 Total Protein, (6.5-8.0) 7.8 g/dL 12/30/24 Albumin, (3.5-5.0) 4.5 g/dL 12/30/24 [facility] Medical History section wound seroma, COVID-19 Surgical History H/O hernia repair Hx of appendectomy H/O section Family History Mother No problems noted. Father No problems noted. Son No problems noted. Daughter No problems noted. 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 Drugs service: No Current occupational status: unemployed Cognitive needs: No Hearing needs: No Vision needs: No Assessment & Plan Assessment & Plan (1) Elevated blood sugar: Code(s): R73.9 - Hyperglycemia, unspecified Category: Medical Plan: Wt: 72 Kg ( 11/24 ), 72 kg(11/24), 01/24, 70 kg (03/26) Est kcal needs as per MSJ: 1400 (40% carb, 30% protein/fat) Est fluid needs as per 25-30 ml/d: 2200 Est prot per day as per 1 g/kg bw: 70 Recommend fiber intake : 8-10 g per day and gradually increase to 25-28 g per day for women and 35-38 g for men or as tolerated Recommend sodium intake per day: less than 2300 mg Educated patient on: ( R = reviewed V = verbalizes understanding N/R = needs review N/A = not applicable * Food sources of carbohydrate, adequate serving sizes and its role in various health conditions: R * Differences between complex carbohydrates a simple carbohydrates, role of fiber in diet: R * Lean protein sources of foods: R * Differences between types of fats and role in diet (mono on saturated fat fatty acids, saturated fatty acids, trans fats): R * Food sources of sodium in salt and healthy modifications for heart health in [facility] ip.access: R V R/V * Vitamins and minerals: R V N/R * Healthy plate method concept: R * Physical activity: Benefits a precaution: R * Hypoglycemia protocol (rule of 15): R V N/R * Dietary prevention of Hyperglycemia: R Patient Instructions: Have a yogurt at bedtime in place of ice cream Alternate between salad and non starchy vegetables at dinner, following healthy plate method it. Include a variety non starchy vegetables as part of your meal Coding Level of Care Code Nutr Indiv Subseq (55110) Diagnoses Elevated blood sugar R73.9 Time Spent (min) 30
[2025-03-18 12:16] VITALS: BMI 32.6
== END 2025-03-18 12:42 | disposition home or self-care (01) ==
LOC: HO.ENCR 11:41
PROVIDERS: Visit Provider Dietitian, Registered
DX: R73.9 Hyperglycemia, unspecified (principal)

== ENCOUNTER → 2025-03-18 11:40 | Outpatient (BNVA) | payer OTHER, SELFPAY | PROVIDERS: Visit Provider Dietitian, Registered | DX: R73.9 Hyperglycemia, unspecified (principal); Z71.3 Dietary counseling and surveillance | CPT/HCPCS: 97803 ==

== ENCOUNTER 2025-03-29 16:59 | Emergency (ER) | payer OTHER, SELFPAY ==
[2025-03-29 17:08] VITALS: BP 150/67; PULSE 103; RESP 20; TEMP 36.6; O2SAT 96; BMI 32.6
--- NOTE | 2025-03-29 17:09 | ED_ITS ---
HPI - General Adult General Chief complaint: Epistaxis Stated complaint: consistent nose bleed/mouth bleed, concerned Time Seen by Provider: 03/29/25 22:29 Related Data Previous Rx's ?Medication ?Instructions ?Recorded naproxen 500 mg tablet (Naprosyn) 500 mg PO BID PRN pa in #20 tabs 01/10/22 atenolol 25 mg tablet 25 mg PO DAILY #90 tabs 09/01 08/24 blood sugar diagnostic (FreeStyle #100 ea 09/29/24 Lite Strips) blood-glucose meter (FreeStyle #1 ea 09/29/24 Lite Meter kit) lancets 28 gauge (FreeStyle #100 ea 09/29/24 Lancets) ibuprofen 600 mg tablet 600 mg PO Q8H PRN fever or p ain 10/16/24 #30 tabs omeprazole 20 mg capsule,delayed 20 mg PO DAILY #90 ca ps 12/02/24 release atorvastatin 10 mg tablet (Lipitor) 10 mg PO BEDTIME # 90 tabs 03/30/25 chlorpheniramine-acetaminophen 2 1 tab PO Q4-6H PRN si nus symptoms 03/30/25 mg-325 mg tablet (Coricidin HBP #20 tabs Cold and Flu) metformin 500 mg tablet 500 mg PO BID #180 tabs 03/03 12/25 sodium chloride 0.65 % nasal spray 1 spray intranasal BID PRN dry 03/30/25 aerosol ([place] Saline) nasal passages #50 mL Allergies Allergy/AdvReac Type Severity Reaction Status Date / Time No Known Allergies Allergy Verified 03/30/25 10:45 [facility] Past Medical History Medical History section wound seroma, COVID-19 Surgical History H/O hernia repair Hx of appendectomy H/O section Family History Family History Mother No problems noted. Father No problems noted. Son No problems noted. Daughter No problems noted. 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 Detailed physical exam and review of systems are deferred to the mushroom farmer. Labs ordered. Patient placed back in the waiting room pending room availability and results. Patient left the department without completing treatment. Patient left the department before myself or any of the other emergency department clinicians could explain to or review with the patient; physical exam findings, test results, need or lack there of for additional testing, need or lack there of for a procedure to be performed, need or lack there of for hospital admission / transfer, need or lack there of for prescription medication, treatment options, or a treatment plan. Patient's limited physical exam performed in triage showed a non-toxic individual with appropriate breathing, alert and oriented, and ambulating without assistance. Medications Administered Discontinued Medications Generic Name Dose Route Start Last Admin Trade Name Caden PRN Reason Stop Dose Admin Acetaminophen 650 mg 03/29/25 20:45 03/29/25 20:49 Acetaminophen 325 Mg Tablet PO 03/29/25 20:46 650 mg ONCE ONE Administration Medical Decision Making Lab Data 03/29/25 17:30 03/29/25 17:30 Labs: Lab Results 03/29/25 Range/Units 17:30 WBC 9.0 (4.8-10.8) X10*3/uL RBC 5.08 (4.20-5.50) X10*6/uL Hgb 13.2 (12.0-16.0) g/dl Hct 41.9 (37.0-47.0) % MCV 82.5 (80.0-98.0) fL MCH 26.0 L (27.0-33.0) pg MCHC 31.5 (31.0-35.0) g/dl RDW 13.8 (11.0-16.0) % Plt Count 276 (160-400) X10*3/uL MPV 10.3 (9.4-12.3) fL Immature Gran % (Auto) 0.3 (0.0-0.4) % Neut % (Auto) 62.9 (45-73) % Lymph % (Auto) 21.1 (20-40) % [place] % (Auto) 11.2 H (2-11) % Eos % (Auto) 3.9 (0-4) % Baso % (Auto) 0.6 (0-2) % Lymph # (Auto) 1.9 (1.2-4.9) X10*3/uL [place] # (Auto) 1.0 (0.1-1.2) X10*3/uL Eos # (Auto) 0.4 (0.0-0.4) X10*3/uL Baso # (Auto) 0.1 (0.0-0.2) X10*3/uL Abs Immat Gran (auto) 0.03 (0.00-0.03) X10*3/uL Absolute Neuts (auto) 5.6 (2.0-8.3) x10*3/uL Absolute Nucleated RBC 0.000 (0.0-0.012) X10*3/uL Nucleated RBC % (auto) 0.0 (0.0-0.2) /100WBC PT 11.5 (11.2-13.5) SEC INR 0.9 (0.9-1.1) Sodium 142 (135-145) mmol/L Potassium 4.1 (3.3-5.1) mmol/L Chloride 107 (96-108) mmol/L Carbon Dioxide 26 (22-29) mmol/L Anion Gap 13 (12-20) BUN 16 (9-16) mg/dL Creatinine 0.79 (0.5-1.4) mg/dL Estim Creat Clear Calc 62.7 Estimated GFR > 60 Random Glucose 151 H (60-115) mg/dL Calcium 9.7 (8.4-10.2) mg/dL Total Bilirubin 0.2 (0.0-1.0) mg/dL AST 31 (5-31) U/L ALT 30 (0-31) U/L Alkaline Phosphatase 105 (39-117) U/L Total Protein 7.9 (6.5-8.0) g/dL Albumin 4.3 (3.5-5.0) g/dL Influenza Type A (PCR) NEGATIVE (Negative) Influenza Type B (PCR) NEGATIVE (Negative) RSV RNA Qual (PCR) NEGATIVE (Negative) SARS-CoV-2 RNA (RT-PCR) NEGATIVE (Negative) Discharge Plan Discharge Clinical Impression: Epistaxis Patient Disposition: Left W/O Completing Treatment Prescriptions: No Action atenolol 25 mg tablet 25 mg PO DAILY Qty: 90 0RF (DME) FreeStyle Lite Strips Strip See Rx Instructions .Route Qty: 100 0RF Rx Instructions: As directed; to check sugars t.i.d. (DME) blood-glucose meter [FreeStyle Lite Meter] Kit See Rx Instructions .Route Qty: 1 0RF Rx Instructions: As directed; to check blood sugars 3 times a day (DME) lancets [FreeStyle Lancets] 28 gauge misc See Rx Instructions .Route Qty: 100 0RF Rx Instructions: As directed; to check blood sugars t.i.d. omeprazole 20 mg capsule,delayed release(DR/EC) 20 mg PO DAILY Qty: 90 0RF naproxen [Naprosyn] 500 mg tablet 500 mg PO BID PRN (Reason: pain) Qty: 20 0RF ibuprofen 600 mg tablet 600 mg PO Q8H PRN (Reason: fever or pain) Qty: 30 0RF [place] Saline 0.65 % aerosol,spray 1 spray intranasal BID PRN (Reason: dry nasal passages) Qty: 50 0RF Coricidin HBP Cold and Flu 2-325 mg tablet 1 tab PO Q4-6H PRN (Reason: sinus symptoms) Qty: 20 0RF atorvastatin [Lipitor] 10 mg tablet 10 mg PO BEDTIME Qty: 90 1RF metformin 500 mg tablet 500 mg PO BID Qty: 180 2RF Discharge Date/Time: 03/29/25 23:02
[2025-03-29 17:53] LABS: MANUAL DIFF FLAG NO
[2025-03-29 18:03] LABS: Hematocrit 41.9 % (37.0-47.0); Hemoglobin 13.2 g/dl (12.0-16.0); Imm Gran Abs Auto 0.03 X10*3/uL (0.00-0.03); Imm Gran Pct Auto 0.3 % (0.0-0.4); Lymphocytes Absolute Auto 1.9 X10*3/uL (1.2-4.9); Mean Corpuscular HGB Conc 31.5 g/dl (31.0-35.0); Mean Corpuscular Hemoglobin 26.0 pg (27.0-33.0); Mean Corpuscular Volume 82.5 fL (80.0-98.0); NRBC Abs Auto 0.000 X10*3/uL (0.0-0.012); NRBC Pct Auto 0.0 /100WBC (0.0-0.2); Platelet Count 276 X10*3/uL (160-400); Red Blood Count 5.08 X10*6/uL (4.20-5.50); White Blood Count 9.0 X10*3/uL (4.8-10.8)
[2025-03-29 18:05] LABS: INTERNATIONAL NORM RATIO 0.9 (0.9-1.1); Prothrombin Time 11.5 SEC (11.2-13.5)
[2025-03-29 18:10] LABS: Alanine Aminotransferase 30 U/L (0-31); Albumin Level 4.3 g/dL (3.5-5.0); Alkaline Phosphatase 105 U/L (39-117); Anion Gap 13 (12-20); Aspartate Amino Transferase 31 U/L (5-31); Blood Urea Nitrogen 16 mg/dL (9-16); Calcium 9.7 mg/dL (8.4-10.2); Carbon Dioxide 26 mmol/L (22-29); Chloride 107 mmol/L (96-108); Creatinine Clr Calc Pharmacy 62.7; Estimated Glomerular Filt Rate > 60; Potassium 4.1 mmol/L (3.3-5.1); Sodium 142 mmol/L (135-145); Total Protein 7.9 g/dL (6.5-8.0)
[2025-03-29 18:30] LABS: Resp Syncy Virus RNA Qual PCR NEGATIVE (Negative); SARS COV2 PCR INHOUSE NEGATIVE (Negative)
--- NOTE | 2025-03-29 23:02 | PC.NURSE ---
patient no longer seated in [facility]. registration stated they saw patient leaving ED. did not complete treatment
== END 2025-03-29 23:02 | disposition left against medical advice (07) ==
PROVIDERS: Physician Assistant Medical; Emergency Provider Emergency Medicine
DX: R04.0 Epistaxis (principal); Z53.21 Procedure and treatment not carried out due to patient leaving prior to being seen by health care provider; Z03.818 Encounter for observation for suspected exposure to other biological agents ruled out
CPT/HCPCS: 36415; 80053; 85025; 85610; 87637; 99282; 99283

== ENCOUNTER 2025-03-30 10:32 | Outpatient (AMB) | payer OTHER, SELFPAY ==
--- NOTE | 2025-03-30 10:43 | A.OFFPC_ITS ---
Vital Signs 03/30/25 10:44 Height 4 ft 11 in Weight 159 lb BMI 32.1 BP 134/80 Blood Pressure Location Lt brachial Position Sitting Respiration 18 Pulse 70 Pulse Source Pulse Oximeter Temp 97.8 F Temp Source Temporal Artery Scan Pulse Oximetry (%) 98 Oxygen Delivery Method Room Air Intake Visit Reasons: f/u DM Intake Note: c/o nose bleeds and [place]. WEnt to [facility] yesterday and was never seen by a doctor. Blood was drawn. Production Director Required: Yes Production Director Name: Areli Accompanied by: Self / Same As Patient Allergies No Known Allergies Allergy (Verified 03/30/25 10:45) Medication List - Last Reviewed 03/30/25 by Skylar Antonio MA acetaminophen 1,000 mg (2 x 500 mg) PO .q8 PRN atenolol 25 mg PO DAILY atorvastatin (Lipitor) 10 mg PO BEDTIME blood sugar diagnostic (FreeStyle Lite Strips) As directed; to check sugars t.i.d. blood-glucose meter (FreeStyle Lite Meter kit) As directed; to check blood sugars 3 times a day ibuprofen 600 mg PO Q8H PRN lancets (FreeStyle Lancets) As directed; to check blood sugars t.i.d. naproxen (Naprosyn) 500 mg PO BID PRN omeprazole 20 mg PO DAILY Tobacco use date assessed: 12/29/24 Fall risk assessment: No Falls in past year Last assessed Fall Risk: 03/30/25 Dental Screening Dental Screen Date: 09/03/24 HPI f/u DM HPI Details 64-year-old female with past medical his tory of hypertension, diabetes, asthma, fatty liver, GERD last seen 12/25 coming in for follow up. In review of the notes, patient has been following with endocrinology for nutrition last seen 03/26. customer business manager Areli [id number] was used for the duration of this visit Presenting with complaints of epistaxis, headache, and a cough. She reports visiting the emergency room yesterday for a heavy nosebleed and a severe headache. During the ER visit, blood was drawn and her blood pressure was checked, but she left after six hours without being seen by a physician. She notes that the nosebleeds are frequent and also had one last week. For the past week, she has had a cough, body aches, headaches, and has felt weak and tired. The onset of these symptoms followed her 's illness, which was diagnosed as flu. Her body aches are now mild and have improved from the first few days. For her cough, she has been taking Robitussin every eight hours. [facility] Medical History section wound seroma, COVID-19 Surgical History H/O hernia repair Hx of appendectomy H/O section Family History Mother No problems noted. Father No problems noted. Son No problems noted. Daughter No problems noted. 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 Drugs service: No Current occupational status: unemployed Cognitive needs: No Hearing needs: No Vision needs: No Questionnaire Thrive Questionnaire Date Thrive assessed: 09/26/24 I am a: Patient What is your living situation today?: I have a steady place to live Within the past 12 months, did the food you bought not last and you didn't have the money to get more?: Never true Within the past 12 months, did you worry whether your food would run out before you got money to buy more?: I choose not to answer this question Do you have trouble paying for medicines?: No Do you have trouble getting transportation to medical appointments?: No Do you have trouble paying your heating and electricity bill?: I choose not to answer this question Do you have trouble taking care of your child, family member or friend?: I choose not to answer this question Do you have trouble with day-to-day activities such as bathing, preparing meals, shopping, managing finances, etc.?: No Are you currently unemployed and looking for a job?: I choose not to answer this question Are you interested in more education?: No Currently or been in a relationship where the following occur: No concerns reported THRIVE Score: 0 REGINE-7 AMB Questionnaire REGINE-7 Date REGINE - 7 assessed: 09/03/24 Source: Developed by Drs. Kenny Pace, Yolette Garcia, Chau Cooper and colleagues, with an educational ana from [email or web address]. Review of Systems Const Reports body aches, Denies chills, Denies fever(s), Reports headache(s), Reports lethargy and Denies poor appetite Eyes Reports no additional complaints ENT Denies dysphagia, Denies dizziness, Reports headache(s) and Denies odynophagia Card Denies chest pain, Denies edema, Denies lightheadedness and Denies dyspnea Resp Reports cough, Denies hemoptysis, Denies excessive phlegm production and Denies dyspnea GI Denies abdominal pain, Denies constipation, Denies dysphagia, Denies diarrhea, Reports nausea, Denies odynophagia and Denies vomiting Reports no additional complaints Musc Reports no additional complaints and Denies abnormal gait Skin/Breast Reports system reviewed and no additional complaints, except as documented Neuro Denies abnormal gait, Denies dizziness and Reports headache(s) Psych Reports no additional complaints Physical exam (Primary Care) Vital Signs: Last Vital Signs Temp 97.8 F 03/30/25 10:44 Pulse 70 03/30/25 10:44 Resp 18 03/30/25 10:44 BP 134/80 03/30/25 10:44 Pulse Ox 98 03/30/25 10:44 Oxygen Delivery Method Room Air 03/30/25 10:44 BMI result Body Mass Index 32.1 Tobacco/Smoking Status: Tobacco use Status Tobacco use date assessed 12/29/24 03/30/25 10:43 Patient Tobacco Use Status Never used Tobacco 03/30/25 10:43 Tobacco use type Cigarette 03/30/25 10:43 e-Cigarette/Vaping Use Never Used 03/30/25 10:43 Thrive Assessment: Date of Thrive Assessment Date Thrive assessed 09/26/24 03/30/25 10:43 Currently or been in a relationship where the following occur: No concerns reported Const General: cooperative, healthy appearing, comfortable and no acute distress Orientation/consciousness: patient oriented x3 HENMT Head: Yes normocephalic Ears: hearing grossly normal bilaterally General nose exam: Normal external nose present Eyes General: appearance normal, both eyes and all related structures Conjunctivae: conjunctivae normal Neck Neck: Yes full ROM and Yes no lymphadenopathy Resp Effort & Inspection: normal respiratory effort Auscultation: clear to auscultation bilaterally, no crackles, no rales, no rhonchi and no wheezes Cardio Rate: regular rate Rhythm: regular rhythm Skin General skin exam: no rashes or lesions noted Neuro General: patient oriented x3 Gait exam (Neuro): Normal gait present Extrem General: Yes normal to inspection, Yes full ROM and No edema Psych Affect: normal affect Attitude: cooperative Insight: Good insight present (Psych) Judgement: Good judgement present (Psych) Results AMB Hemoglobin A1c AMB Hemoglobin A1c 6.1 % Last Edit by Skylar Antonio MA on 03/30/25 11:06 Results Reviewed Results Reviewed: Laboratory Last Values Hgb A1c (Clinic) 6.1 % (4.0-6.0) H 03/30/25 10:45 Coding Level of Care Code Est Pt Level 3 (72455) Diagnoses Hypertension I10 Asthma J45.909 Obesity (BMI 30-39.9) E66.9 Hypercholesterolemia E78.00 Diabetes mellitus E11.9 Epistaxis R04.0 Cough R05.9 Assessment & Plan Assessment & Plan (1) Hypertension: Code(s): I10 - Essential (primary) hypertension Category: Medical Plan: Continue on current blood pressure medication. Avoid salt intake and encourage healthy diet and regular exercise. Blood pressure has improved with atenolol. (2) Asthma: Code(s): J45.909 - Unspecified asthma, uncomplicated Category: Medical Plan: Asthma currently controlled on present medications. Continue on albuterol prn.? Avoid triggers such as allergies. (3) Obesity (BMI 30-39.9): Code(s): E66.9 - Obesity, unspecified Category: Medical Plan: Healthy diet and regular exercise is encouraged. Continue to follow with modeling and simulation analyst (4) Hypercholesterolemia: Code(s): E78.00 - Pure hypercholesterolemia, unspecified Category: Medical Plan: Avoid foods that are high in cholesterol such as red meat, fried foods, eggs and baked goods. Triglyceride goal of less than 150 and LDL goal of less than 100. Continue on atorvastatin last LDL within goal for this patient. (5) Diabetes mellitus: Code(s): E11.9 - Type 2 diabetes mellitus without complications Category: Medical Plan: Decrease the amount of carbohydrates such as pasta, bread, rice, and potatoes and limit the amount of sweets. Although fruits are generally healthy they should be eaten in moderation as they are still high in sugar. Hemoglobin A1c goal of less than 7%. Most recent A1c 6.1% which is improved since last visit. She will continue on Metformin at current dose. (6) Epistaxis: Code(s): R04.0 - Epistaxis Category: Medical Plan: Likely related to recent viral illness and dryness in the home. Prescription for saline nasal spray was sent to pharmacy to be used BID for nasal dryness. Also recommended humidifier in the home if possible. (7) Cough: Code(s): R05.9 - Cough, unspecified Category: Medical Plan: The patient's symptoms of cough, body aches, and headaches are likely due to a viral illness, especially given her 's recent flu diagnosis. Her symptoms are improving, and her lungs are clear on exam. A new cough medication that is safe for her blood pressure will be prescribed. A chest x-ray will be ordered if the cough worsens, or if she develops a fever or productive cough. Plan This note was constructed using voice recognition software. While every effort has been made to ensure accuracy and customer service and sales consultant, still areas may have been included sometimes these areas may affect the content or meeting of the given symptoms. Total time spent caring for the patient today was 20 minutes. This includes time spent before the visit reviewing the chart, time spent during the visit, and time spent after the visit and documentation. Patient was informed and verbally consented to the use of an ambient scribe for clinic note documentation during this visit. Orders: Orders Lipid Panel 3 Months E78.00 - Pure hypercholesterolemia, unspecified Hemoglobin A1c 3 Months E11.65 - Type 2 diabetes mellitus with hyperglycemia AMB Hemoglobin A1c Today E11.9 - Type 2 diabetes mellitus without complications Medications: New sodium chloride 0.65% ([place] Saline) 1 spray intranasal BID PRN 50 mL 0RF dry nasal passages R04.0 - Epistaxis chlorpheniramine-acetaminophen 2-325 mg (Coricidin HBP Cold and Flu) 1 tab PO Q4-6H PRN 20 tabs 0RF sinus symptoms Refilled metformin 500 mg PO BID 180 tabs 2RF atorvastatin (Lipitor) 10 mg PO BEDTIME 90 tabs 1RF Discontinued acetaminophen Discontinued Reason: Patient no longer taking 1,000 mg (2 x 500 mg) PO .q8 PRN 30 caps 0RF fever or pain
[2025-03-30 10:44] VITALS: BP 134/80; PULSE 70; RESP 18; TEMP 36.6; O2SAT 98; BMI 32.1
== END 2025-03-30 11:30 | disposition home or self-care (01) ==
LOC: HO.HMCH 10:33
DX: I10 Essential (primary) hypertension (principal); J45.909 Unspecified asthma, uncomplicated; E66.9 Obesity, unspecified; E78.00 Pure hypercholesterolemia, unspecified; E11.9 Type 2 diabetes mellitus without complications; R04.0 Epistaxis; R05.9 Cough, unspecified

== ENCOUNTER → 2025-03-30 10:32 | Outpatient (BNVA) | payer OTHER, SELFPAY | DX: I10 Essential (primary) hypertension (principal); E11.9 Type 2 diabetes mellitus without complications; J45.909 Unspecified asthma, uncomplicated; E66.9 Obesity, unspecified; E78.00 Pure hypercholesterolemia, unspecified; R04.0 Epistaxis; R05.9 Cough, unspecified; Z79.899 Other long term (current) drug therapy; Z68.32 Body mass index [BMI] 32.0-32.9, adult | CPT/HCPCS: 83036; 99212 ==